=== PATIENT | male | born 1955 | race Caucasian/White ===

== ENCOUNTER → 2018-10-24 14:05 | Outpatient (CLI) | payer MEDICARE, OTHER, SELFPAY ==
[2016-05-29 00:19] VITALS: BMI 22.5
--- NOTE | 2018-10-24 14:00 | CYSPIN_PTH ---
PATIENT: EMMETT SANTIAGO LOC: [facility] U#:[id number] AGE/SX: 70/M ROOM: RE10/24/[address]: Dr. Mason Rmaon MD : 1955 BED: DIS: SPEC #: [id number] RECD: 10/25/18 08:19 STATUS: SHELLI YANETH #: [id number] CM: 10/24/18 14:[address]: Mason Ramon DEPT: CYTOLOGY RECD BY: Anirudh Barr ENTERED: 10/25/18 08:19 SP TYPE: CYSPIN FL OTHR DR: Dr. Urban Robins MD Tissues: Urine Procedures: Pap Stain (control) Special Stain Group II Cytospin Fluid HEADER OPERATION: Not noted PRE-OP DIAGNOSIS: Hematuria TISSUE SUBMITTED: Urine for cytology DIAGNOSIS CYTOLOGY Urine for cytology (cytospin): Negative for malignant cells. AM:wagner 10/28/18 CYTOLOGY STUDY Slides are reviewed. CYTOLOGY GROSS Received is 60 ml of clear yellow fluid labeled with the patient's name and and designated per the requisition as urine. Submitted for cytology preparation. 10/25/18 TC:5 CPT: 93126
[2018-10-24 18:13] LABS: Cytology, Body Fluid / CSF SEE PATHOLOGY REPORT
== END ==
PROVIDERS: Family Provider Family Medicine; PCP Family Medicine; Referring Provider Urology; Visit Provider Urology
DX: R97.20 Elevated prostate specific antigen [PSA] (principal); R31.9 Hematuria, unspecified
CPT/HCPCS: 36415; 84153; 88108; 88313

== ENCOUNTER → 2018-11-01 07:49 | Outpatient (CLI) | payer MEDICARE, OTHER, SELFPAY ==
[2016-05-29 00:19] VITALS: BMI 22.5
--- NOTE | 2018-11-01 08:02 | CT_ITS ---
STUDY: CT ABDOMEN AND PELVIS WITH AND WITHOUT CONTRAST REASON FOR EXAM: Male, 63 years old. Hematuria, prostate cancer. RADIATION DOSAGE (If Supplied By Facility): CTDIvol = ( 13.70 ) mGy, DLP = ( 883.64 ) mGycm TECHNIQUE: Transaxial images were obtained from the dome of the diaphragm to the symphysis pubis without oral contrast. 100 ml of Isovue 300 contrast was administered. Sagittal and coronal images were reconstructed. Individualized dose optimization techniques were used for this CT. COMPARISON: None. FINDINGS: The visualized lung bases are unremarkable. The visualized portions of the heart are within normal limits. Normal liver. Normal gallbladder and extrahepatic biliary system. Normal spleen. Normal pancreas. Normal bilateral adrenal glands. Normal right kidney. Coarse calcification within the mid medial cortex is present consistent with nonobstructing nephrolith measuring 8 mm. Normal visualized stomach. Normal small intestine. Normal colon. The appendix is visualized and appears normal. There is a fusiform and lobulated infrarenal aortic aneurysm the upper portion measuring 4.2 x 4.5 cm with arterial lumen measuring 2.8 cm. The lower aneurysmal portion measures 4.7 x 4.9 cm with the arterial lumen patency measuring 2.3 cm. Normal inferior vena cava. Normal retroperitoneum. Normal urinary bladder. There is enlargement of the prostate gland. Normal abdominal wall. There are diffuse degenerative changes of the visualized lumbar spine. CT/CT Abd/Pelvis W/WO Contrast IMPRESSION: 1. Nonobstructing 8 mm nephrolith of the left kidney with no evidence of hydronephrosis or ureteral dilatation. No evidence of acute renal process. 2. Infrarenal bilobed aortic aneurysm and fusiform appearance as described above. No evidence of significant luminal arterial patency stenosis. Electronically Signed: Sree Black DO at 9:18 EST , Service support ,
[2018-11-01 08:26] LABS: CREATININE FINGERSTICK 0.9 mg/dL (0.70-1.30)
--- OUTSIDE RECORDS SUMMARY | 2018-12-17 19:23 | XMS RPT_ITS ---
:1955 Author Organization [facility] Care Team Providers Name Role Phone Mason Ramon Attending Unavailable Mason Ramon Referring Unavailable Robins, Urban Primary Care Unavailable YennyMason Attending Unavailable Yenny, Mason Claudio Referring Unavailable Robnis, Urban Primary Care Unavailable YennyMason epstein Attending Unavailable Yenny, Mason Claudio Referring Unavailable Robins, Urban Primary Care Unavailable TIBURCIO WARNER Attending Unavailable URBAN MORILLO Referring Unavailable LUIS FERNANDO CHAUDHARY Attending Unavailable URBAN MORILLO Referring Unavailable URBAN MORILLO Primary Care Unavailable Saul PARNELL Referring Unavailable URBAN MORILLO Primary Care Unavailable Saul PARNELL Attending Unavailable URBAN MORILLO Referring Unavailable ILIA, URBAN Primary Care Unavailable PROBLEMS PROBLEMS DATE TYPE CONDITION / CODE ATTENDING STATUS SOURCE 10/24/2018 Unknown R97.20 - Mason Ramon Active Amy Elevated [facility] specific antigen Repository [PSA] / R97.20(ICD-10) PROCEDURES PROCEDURES No Procedure Records FoundRESULTS RESULTS OPERATIVE REPORT Observed: 12/04/2018 Status: F Source: [place] 3:48 PM [facility] REPOSITORY [facility] Medical Records Department [address] [place] [address] Operative Report 12/04/18 1546 MR#: [id number] Acct: [id number] Name: EMMETT SANTIAGO Rep #: [id number] : 1955 63 From: Mason Ramon MD PCP: Urban Robins MD Status: REG SDC Y Location: [place] [address] Report of Operation Date of Procedure: 12/04/18 Pre-Operative Diagnosis: Left kidney stone and hematuria Post-Operative Diagnosis: Same Surgery/Procedure Performed:: Cystoscopy and left extracorporeal shockwave lithotripsy Description of Surgical Findings:: 63-year-old male taken back to the operating room plan today is to do a cystoscopy to rule out any pathology within the bladder he has been having gross hematuria I think this is coming from a stone in the left kidney were also to treat the stone with shockwave lithotripsy looked like a very hard stone about 8 mm in size in the left kidney. Procedure note patient was taken back to the operating room at the smooth induction of anesthesia he was placed supine on the table and then a dorsolithotomy position the penis was prepped and draped in usual sterile fashion went in with a flexible scope the entire length the urethra is normal prostate was normal slightly obstructive no median lobe the high right no high riding bladder neck inside the bladder nice and clear no tumors or stones seen within the bladder then drained the bladder we then repositioned the patient for shockwave lithotripsy in the left kidney started shockwave lithotripsy by with the gait the procedure since he was having ectopy and then after a total of 3000 shockwaves were delivered to the stone at a rate of 60 per about 60 %/min power ranging from 5-7 kV the stone definitely fractured a lot broken below penis pieces were still visible on x-ray and we decided not to leave a stent we can see him back in a few weeks with an x-ray. Type of Anesthesia:: General - Admit VTE Documentation VTE Present on Admission: No VTE Mechan Device Prophylaxis: SCD's 12/04/18 1548 <Electronically signed by Mason Ramon MD> Date Mason Ramon MD CC: Mason Ramon MD; Urban Robins MD Signed CREATININE FINGERSTICK Collected: 11/01/2018 Status: F Source: [place] 8:19 AM [facility] TYPE CODE TESTS RESULT OUT OF RANGE REFERENCE UNITS LAB L9100.0210 0.70-1.30 mg/dL Normal CREATININE WB 0.9 Performed By: #### L9100.0200 #### [facility] Point of Care [address] [place] [address] CT ABD/PELVIS W/WO Observed: 11/01/2018 Status: F Source: [place] CONTRAST 8:02 AM [facility] Imaging Services [address] [place] [address] CT Abd/Pelvis W/WO Contrast MR#: [id number] Acct: [id number] Name: EMMETT SANTIAGO Rep #: [id number] : 1955 M 63 From: Sree Black DO PCP: Urban Robins MD Status: REG CLI Study: CT Abd/Pelvis W/WO Contrast Date of Exam: 11/01/18 Exam# [id number] Ordering Dr: Mason Ramon MD STUDY: CT ABDOMEN AND PELVIS WITH AND WITHOUT CONTRAST REASON FOR EXAM: Male, 63 years old. Hematuria, prostate cancer. RADIATION DOSAGE (If Supplied By Facility): CTDIvol = ( 13.70 ) mGy, DLP = ( 883.64 ) mGycm TECHNIQUE: Transaxial images were obtained from the dome of the diaphragm to the symphysis pubis without oral contrast. 100 ml of Isovue 300 contrast was administered. Sagittal and coronal images were reconstructed. Individualized dose optimization techniques were used for this CT. COMPARISON: None. FINDINGS: The visualized lung bases are unremarkable. The visualized portions of the heart are within normal limits. Normal liver. Normal gallbladder and extrahepatic biliary system. Normal spleen. Normal pancreas. Normal bilateral adrenal glands. Normal right kidney. Coarse calcification within the mid medial cortex is present consistent with nonobstructing nephrolith measuring 8 mm. Normal visualized stomach. Normal small intestine. Normal colon. The appendix is visualized and appears normal. There is a fusiform and lobulated infrarenal aortic aneurysm the upper portion measuring 4.2 x 4.5 cm with arterial lumen measuring 2.8 cm. The lower aneurysmal portion measures 4.7 x 4.9 cm with the arterial lumen patency measuring 2.3 cm. Normal inferior vena cava. Normal retroperitoneum. Normal urinary bladder. There is enlargement of the prostate gland. Normal abdominal wall. There are diffuse degenerative changes of the visualized lumbar spine. CT/CT Abd/Pelvis W/WO Contrast IMPRESSION: 1. Nonobstructing 8 mm nephrolith of the left kidney with no evidence of hydronephrosis or ureteral dilatation. No evidence of acute renal process. 2. Infrarenal bilobed aortic aneurysm and fusiform appearance as described above. No evidence of significant luminal arterial patency stenosis. Electronically Signed: Sree DO Wayne at 9:18 EST , Service support , CC: Mason Ramon MD; Urban Robins MD Acid Etch Operator: Signed PSA,TOTAL- DIAGNOSTIC Collected: 10/24/2018 Status: F Source: [place] 2:13 PM [facility] [place] TYPE CODE TESTS RESULT OUT OF RANGE REFERENCE UNITS LAB L501.9940 0.0-4.0 ng/mL PSA, Normal DIAGNOSTIC 0.30 Result Comment: This test was performed using the TPSA assay method for the PerBlue chemistry system. Values obtained with different assay methods cannot be used interchangably. When changing PSA assays in the course of monitoring a patient, additional sequential testing should be carried out to confirm baseline values. Performed By: #### L501.9940 #### [facility] [address] [place], [address] CYTOSPIN ON FLUID Observed: 10/24/2018 Status: F Source: [place] 2:00 PM [facility] [place] Patient: EMMETT SANTIAGO : 1955 (63/M) Acct Num: [id number] Phys: Yenny GUTIERREZ,Mason Claudio Unit Num: [id number] Loc: LAB Specimen: [id number] Received: 10/25/18818 Spec Type: CYSPIN FL TISSUES 1 TISSUES: Urine CYTOLOGY GROSS Received is 60 ml of clear yellow fluid labeled with the patient's name and and designated per the requisition as urine. Submitted for cytology preparation. / 10/25/18 TC:5 CPT: 47621 CYTOLOGY STUDY Slides are reviewed. DIAGNOSIS CYTOLOGY Urine for cytology (cytospin): Negative for malignant cells. AM:wagner 10/28/18 HEADER OPERATION: Not noted PRE-OP DIAGNOSIS: Hematuria TISSUE SUBMITTED: Urine for cytology Signed Reji Mya 10/28/18 <signature on file> Performed By: #### PCYSPIN #### [facility] [address] [place], [address] CYTOLOGY, BODY FLUID / Collected: 10/24/2018 Status: F Source: [facility] 2:00 PM [facility] [place] Order Comment: Specimen Source: URINE TYPE CODE TESTS RESULT OUT OF RANGE REFERENCE UNITS LAB L350.1000 SEE Normal PATHOLOGY CYTOLOGY,BF REPORT /CSF Result Comment: Specimen submitted to Anatomical Pathology Department for testing. Performed By: #### L350.1000 #### [facility] [address] [place], [address] ALLERGIES ALLERGIES DATE TYPE / CODE NAME / CODE REACTION SEVERITY SOURCE 11/27/2018 Drug No Known Unknown [facility] Allergy/416 Allergies/X69708 Hospital 216506(SNOM 0388(RXNORM) Repository ED CT) NG/[id number] NO KNOWN [place] [address](SNOMED ALLERGIES [facility]) Repository ENCOUNTERS ENCOUNTERS ADMIT/DISCHARGE ACCOUNT NUMBER ADMITTING ENCOUNTER LOCATION SOURCE CLASS 12/04/2018/12/04/19 [id number] Ambulatory [address] ding:SDCRoom Repository : AC14 11/01/2018 [id number] [facility] ding:CT Repository 11/01/2018 [id number] Ambulatory [facility] MEDICAL Repository CENTERBuildi ng:AKUF 10/24/2018 [id number] Ambulatory Pierron Pierron [facility] ding:LAB Repository 04/30/2018 [id number] Ambulatory [facility] MEDICAL Repository CENTERBuildi ng:AGVASACC 04/16/2018 [id number] Ambulatory [facility] MEDICAL Repository CENTERBuild ng:AKUF 04/11/2018 [id number] Ambulatory [facility] PAYERS PAYERS ENCOUNTER GUARANTOR PAYER SUBSCRIBER SOURCE 12/04/2018 EMMETT Corbin Primary EMMETT Shaquille Reyes [id number] Insurance:ANTHEM RUSSELLDOB: Community [employer] [id number] Number: Repository [id number]: 330 [id number] [phone] (HP) Date:1071-12-81WU [address] [place] [address] 82385QE: 12/04/2018 Secondary NOT GIVENUNK [place] Insurance:SELF PAY [facility] Number: Effective Repository Date:2018-11-07 11/01/2018 EMMETT Corbin Primary EMMETT Shaquille Reyes [id number] Insurance:ANTHEM PAMELAB: Community [employer]IOR [id number] Number: Repository 74[address]Ibj: 330 [id number] [phone] (HP) Date:7237-67-96ND [address] [place] [address] 82479ZA: 11/01/2018 Secondary EMMETT Reyes Insurance:DYLAN RUSSELLDOB: [facility] [id number] Hospital Number: Repository [id number] Date:9672-50-37SO [address] [place] [address] 85773UN: 11/01/2018 Tertiary NOT GIVENUNK Pi[place] Insurance:SELF PAY [facility] Number: Effective Repository Date:2018-10-24 11/01/2018 EMMETT Corbin [facility]:SYCHELO MCKAY: Health System HIXPolicy Number: [id number] Repository HINKLE [id number] [place], [place] Date: [address]Ycr: () 10/24/2018 EMMETT Corbin Primary EMMETT Reyes [id number] Insurance:ANTHEM RUSSELLDOB: Community [employer]IOR [id number] [place] ADVANTAPolicy Number: Repository [id number]: (009) [id number] [phone] (HP) Date:2110-07-12FU [address] [place] [address]PT: 10/24/2018 Secondary EMMETT Reyes Insurance:[facility] RUSSELLB: [facility] [id number] [facility] Number: Repository [id number] Date:9897-12-81TE [address] [place] [address] 62570TL: 10/24/2018 Tertiary NOT GIVENJASMINE Reyes Insurance:SELF PAY [facility] Number: Effective Repository Date:2018-10-24 04/30/2018 EMMETT Corbin Primary EMMETT [place] SEMINOLEDOB: [facility]: [facility] HIXPolicy Number: [id number] Repository HINKLE [id number] [place], [place] Date: [address]Zxo: () 04/16/2018 EMMETT Corbin Primary EMMETT Corbin [facility] SEMINOLEDOB: Insurance:CARESOURCE RUSSELLB: Health System HIXPolicy Number: [id number] Repository HINKLE [id number] [place], [place] Date: [address]Szu: () 04/11/2018 EMMETT Corbin Primary EMMETT [facility] SEMINOLEDOB: Insurance[facility] HIXPolicy Number: [id number] Medical Center [id number] FIOR DANIELLE Date: [address]Agk: ()
== END ==
PROVIDERS: Family Provider Family Medicine; PCP Family Medicine; Referring Provider Urology; Visit Provider Urology
DX: C61 Malignant neoplasm of prostate (principal); R31.9 Hematuria, unspecified
CPT/HCPCS: 74178; Q9967

== ENCOUNTER 2018-12-04 11:55 | Day surgery (SDC) | payer MEDICARE, SELFPAY ==
[2018-12-04 12:13] VITALS: BP 146/97; PULSE 64; RESP 18; TEMP 36.6; O2SAT 98; BMI 23.3
[2018-12-04] MEDS: Cefazolin 2 GM in 0.9% Normal Saline 100 ML IV (14:26)
--- NOTE | 2018-12-04 15:46 | PCM.OPRPT ---
Report of Operation Date of Procedure: 12/04/18 Pre-Operative Diagnosis: Left kidney stone and hematuria Post-Operative Diagnosis: Same Surgery/Procedure Performed:: Cystoscopy and left extracorporeal shockwave lithotripsy Description of Surgical Findings:: 63-year-old male taken back to the operating room plan today is to do a cystoscopy to rule out any pathology within the bladder he has been having gross hematuria I think this is coming from a stone in the left kidney were also to treat the stone with shockwave lithotripsy looked like a very hard stone about 8 mm in size in the left kidney. Procedure note patient was taken back to the operating room at the smooth induction of anesthesia he was placed supine on the table and then a dorsolithotomy position the penis was prepped and draped in usual sterile fashion went in with a flexible scope the entire length the urethra is normal prostate was normal slightly obstructive no median lobe the high right no high riding bladder neck inside the bladder nice and clear no tumors or stones seen within the bladder then drained the bladder we then repositioned the patient for shockwave lithotripsy in the left kidney started shockwave lithotripsy by with the gait the procedure since he was having ectopy and then after a total of 3000 shockwaves were delivered to the stone at a rate of 60 per about 60 %/min power ranging from 5-7 kV the stone definitely fractured a lot broken below penis pieces were still visible on x-ray and we decided not to leave a stent we can see him back in a few weeks with an x-ray. Type of Anesthesia:: General - Admit VTE Documentation VTE Present on Admission: No VTE Mechan Device Prophylaxis: SCD's
[2018-12-04 15:53] VITALS: BP 146/97; BP 176/97; PULSE 57; RESP 18; TEMP 35.8; O2SAT 97
[2018-12-04 16:00] VITALS: BP 146/97; BP 149/96; PULSE 54; RESP 18; TEMP 36.2; O2SAT 96
[2018-12-04 16:10] VITALS: BP 146/97; BP 165/97; PULSE 64; RESP 18; TEMP 36.2; O2SAT 95
[2018-12-04 16:48] VITALS: BP 146/97; BP 167/88; PULSE 57; RESP 18; TEMP 36.2; O2SAT 97
--- OUTSIDE RECORDS SUMMARY | 2019-02-08 07:58 | XMS RPT_ITS ---
:1955 Author Organization OHIP Care Team Providers Name Role Phone Mason Ramon Attending Unavailable Mason Ramon Referring Unavailable Robins, Urban Primary Care Unavailable YennyMason Attending Unavailable Yenny, Mason Claudio Referring Unavailable Robins, Urban Primary Care Unavailable YennyMason epstein Attending Unavailable Yenny, Mason Claudio Referring Unavailable Shimon, Urban Primary Care Unavailable TIBURCIO WARNER Attending [...] R97.20 - Mason Ramon Active Amy Elevated [facility] specific antigen Repository [PSA] / R97.20(ICD-10) PROCEDURES PROCEDURES No Procedure Records FoundRESULTS RESULTS OPERATIVE REPORT Observed: 12/04/2018 Status: F Source: [place] 3:48 PM [facility] REPOSITORY [facility] Medical Records Department [address] [place] [address] Operative Report 12/04/18 1546 MR#: [id number] Acct: [id number] Name: EMMETT SANTIAGO Rep #: [id number] : 1955 63 From: Mason Ramon MD PCP: Urban Robins MD Status: REG SDC Y Location: [place] [address] Report of Operation Date of Procedure: 12/04/18 [...] 11/01/2018 Status: F Source: [place] 8:19 AM [facility] [place] TYPE CODE TESTS RESULT OUT OF RANGE REFERENCE UNITS LAB L9100.0210 0.70-1.30 mg/dL Normal CREATININE WB 0.9 Performed By: #### L9100.0200 #### [facility] Point of Care [address] [place] [address] CT ABD/PELVIS W/WO Observed: 11/01/2018 Status: F Source: [place] CONTRAST 8:02 AM [facility] [place] [facility] Imaging Services [address] [place] [address] CT Abd/Pelvis W/WO Contrast MR#: [id number] Acct: [id number] Name: EMMETT SANTIAGO Rep #: [id number] : 1955 M 63 From: Sree Black DO PCP: Urban Robins MD Status: REG CLI Study: CT Abd/Pelvis W/WO Contrast Date of Exam: 11/01/18 Exam# [id number] Ordering Dr: Mason Ramon MD STUDY: CT [...] CC: Mason Ramon MD; Urban Robins MD House Officer: Signed PSA,TOTAL- DIAGNOSTIC Collected: 10/24/2018 Status: F Source: [place] 2:13 PM [facility] TYPE CODE TESTS RESULT OUT OF RANGE REFERENCE UNITS LAB L501.9940 0.0-4.0 ng/mL PSA, Normal DIAGNOSTIC 0.30 Result Comment: This test was performed using the TPSA assay method for the [employer] chemistry system. Values obtained with different assay methods cannot be used interchangably. When changing PSA assays in the course of monitoring a patient, additional sequential testing should be carried out to confirm baseline values. Performed By: #### L501.9940 #### [facility] [address] [place], [address] CYTOSPIN ON FLUID Observed: 10/24/2018 Status: F Source: [place] 2:00 PM [facility] [place] Patient: EMMETT SANTIAGO : 1955 (63/M) Acct Num: [id number] Phys: Yenny GUTIERREZ,Mason Claudio Unit Num: [id number] Loc: LAB Specimen: [id number] Received: 10/25/18818 Spec Type: CYSPIN FL TISSUES 1 TISSUES: Urine CYTOLOGY GROSS Received is 60 ml of clear yellow fluid labeled with the patient's name and and designated per the requisition as urine. Submitted for cytology preparation. / 10/25/18 TC:5 CPT: 32674 CYTOLOGY STUDY Slides are reviewed. DIAGNOSIS CYTOLOGY Urine for cytology (cytospin): Negative for malignant cells. AM:wagner 10/28/18 HEADER OPERATION: Not noted PRE-OP DIAGNOSIS: Hematuria TISSUE SUBMITTED: Urine for cytology Signed Reji Mya 10/28/18 <signature on file> Performed By: #### PCYSPIN #### [facility] [address] [place], [address] CYTOLOGY, BODY FLUID / Collected: 10/24/2018 Status: F Source: [facility] 2:00 PM [facility] Order Comment: Specimen Source: URINE TYPE CODE TESTS RESULT OUT OF RANGE REFERENCE UNITS LAB L350.1000 SEE Normal PATHOLOGY CYTOLOGY,BF REPORT /CSF Result Comment: Specimen submitted to Anatomical Pathology Department for testing. Performed By: #### L350.1000 #### [facility] [address] [place], [address] ALLERGIES ALLERGIES DATE TYPE / CODE NAME / CODE REACTION SEVERITY SOURCE 11/27/2018 Drug No Known Unknown [facility] Allergy/416 Allergies/R70089 Hospital 407546(SNOM 0388(RXNORM) Repository ED CT) NG/[id number] NO KNOWN [place] [address](SNOMED ALLERGIES [facility]) Repository ENCOUNTERS ENCOUNTERS ADMIT/DISCHARGE ACCOUNT NUMBER ADMITTING ENCOUNTER LOCATION SOURCE CLASS 12/04/2018/12/04/19 [id number] Ambulatory [address] ding:SDCRoom Repository : AC14 11/01/2018 [id number] [facility] ding:CT Repository 11/01/2018 [id number] Ambulatory [facility] MEDICAL Repository CENTERBuildi ng:AKUF 10/24/2018 [id number] Ambulatory [place] [facility] ding:LAB Repository 04/30/2018 [id number] Ambulatory [facility] MEDICAL Repository CENTERBuildi ng:AGVASACC 04/16/2018 [id number] Ambulatory [facility] MEDICAL Repository CENTERBuild ng:AKUF 04/11/2018 [id number] Ambulatory [facility] PAYERS PAYERS ENCOUNTER GUARANTOR PAYER SUBSCRIBER SOURCE 12/04/2018 EMMETT Corbin Primary EMMETT Shaquille Reyes [id number] Insurance:ANTHEM RUSSELLDOB: Community [employer] SENIOR [id number] Number: Repository [id number]: 330 [id number] [phone] (HP) Date:4042-06-66WV [address] [place] [address] 09499UN: 12/04/2018 Secondary NOT GIVENUNK [place] Insurance:SELF PAY [facility] Number: Effective Repository Date:2018-11-07 11/01/2018 EMMETT Corbin Primary EMMETT Shaquille Reyes [id number] Insurance:ANTHEM PAMELAB: Community [employer]IC[employer] SENIOR [id number] Number: Repository [address]Ytl: 330 [id number] [phone] (HP) Date:1075-83-54BB [address] [place] [address] 87040LL: 11/01/2018 Secondary EMMETT Reyes Insurance:DYLAN RUSSELLDOB: [facility] [id number] Hospital Number: Repository [id number] Date:6143-06-03XG [address] [place] [address] 648[address]XG: 11/01/2018 Tertiary NOT GIVENUNK [place] Insurance:SELF PAY [facility] Number: Effective Repository Date:2018-10-24 11/01/2018 EMMETT Corbin Primary [facility]T [facility]:SYCHELO MCKAY: Health System HIXPolicy Number: [id number] Repository [facility] [id number] [place], [place] Date: [address]Bri: () 10/24/2018 EMMETT Corbin Primary EMMETT Reyes [id number] Insurance:ANTHEM RUSSELLDOB: Community [employer] SENIOR [id number] [place] ADVANTAPolicy Number: Repository [id number]: (031) [id number] [phone] (HP) Date:7828-12-24BE [address] [place] [address] 66066KT: 10/24/2018 Secondary EMMETT Reyes Insurance:[facility] RUSSELLB: [facility] [id number] [facility] Number: Repository [id number] Date:1267-36-36BV [address] [place] [address] 37869RO: 10/24/2018 Tertiary NOT GIVENJASMINE Reyes Insurance:SELF PAY [facility] Number: Effective Repository Date:2018-10-24 04/30/2018 EMMETT Corbin Primary EMMETT Buchanan WEST UNIONDOB: [facility] HIXPolicy Number: [id number] Repository [facility] [id number] [place], [place] Date: [address]Awg: () 04/16/2018 EMMETT Corbin Primary EMMETT Corbin [facility] WEST UNIONDOB: Insurance:CARESOURCE RUSSELLB: Health System HIXPolicy Number: [id number] Repository [facility] [id number] [place], [place] Date: [address]Vxn: () 04/11/2018 EMMETT Corbin Primary EMMETT [facility] WEST UNIONDOB: Insurance:CARESOURCE [facility]: Health System HIXPolicy Number: [id number]. Mary Medical [facility] [id number] FIOR DANIELLE Date: [address]Ksh: ()
== END 2018-12-04 16:52 | disposition home or self-care (01) ==
LOC: SDC 11:55 → AC 11:57
PROVIDERS: Family Provider Family Medicine; PCP Family Medicine; Referring Provider Urology; Visit Provider Urology
PROC: (CPT 50590; principal; 2018-12-04 13:25)
DX: N20.0 Calculus of kidney (principal); R31.0 Gross hematuria; N40.0 Benign prostatic hyperplasia without lower urinary tract symptoms; E78.5 Hyperlipidemia, unspecified; Z79.52 Long term (current) use of systemic steroids; Z79.899 Other long term (current) drug therapy; Z87.442 Personal history of urinary calculi; Z87.19 Personal history of other diseases of the digestive system; Z85.46 Personal history of malignant neoplasm of prostate; Z87.891 Personal history of nicotine dependence
CPT/HCPCS: 00873; 50590; J7120; J2405

== ENCOUNTER → 2018-12-26 09:19 | Outpatient (CLI) | payer MEDICARE, SELFPAY ==
[2018-12-04 12:13] VITALS: BMI 23.3
--- NOTE | 2018-12-26 09:21 | RAD_ITS ---
STUDY: X-RAY - ABDOMEN/PELVIS REASON FOR EXAM: Male, 63 years old. Left-sided kidney stones. TECHNIQUE: Single AP view of the abdomen / pelvis. COMPARISON: Comparison is made with prior study dated January 04, 2016. FINDINGS: There is an abundance of fecal material throughout the colon. Several small calcifications are seen in the lower pole calyx of the left kidney suggestive of a tiny intrarenal calculi. The largest measures 2.9 mm. A faint calcifications also seen overlying the mid pole calyx of the left kidney. Normal soft tissue structures. Normal visualized osseous structures. RAD/Abdomen Single View IMPRESSION: Left intrarenal calculi. Electronically Signed: Ray Lemon MD at 13:05 EST , Service support ,
== END ==
PROVIDERS: Family Provider Family Medicine; PCP Family Medicine; Referring Provider Urology; Visit Provider Urology
DX: N20.0 Calculus of kidney (principal)
CPT/HCPCS: 74018

== ENCOUNTER → 2019-10-30 09:13 | Outpatient (CLI) | payer MEDICARE, SELFPAY ==
[2019-10-30 10:41] LABS: Anion Gap 3 (5-15); BUN 15 mg/dL (7-18); Chloride 109 mmol/L (98-107); Cholesterol 155 mg/dL (200); Creatinine, Serum 1.15 mg/dL (0.70-1.30); EST Glomerular Filtration Rate 68 mL/min (>60); Est Glom Filt Rate - Afr Amer 82 mL/min (>60); Glucose 99 mg/dL (74-106); High Density Lipoprotein 28 mg/dL; PSA,Total - Annual Screen 0.26 ng/mL (0.00-4.00); Potassium 4.1 mmol/L (3.5-5.1); Sodium Level 140 mmol/L (136-145); Triglycerides 172 mg/dL; Very Low Density Lipoprotein 34 mg/dL (5-40)
== END ==
PROVIDERS: Family Provider Family Medicine; PCP Family Medicine; Referring Provider Family Medicine; Visit Provider Family Medicine
DX: Z00.00 Encounter for general adult medical examination without abnormal findings (principal)
CPT/HCPCS: 36415; 80048; 80061; 84153; G0103

== ENCOUNTER → 2020-11-02 08:23 | Outpatient (CLI) | payer MEDICARE, SELFPAY ==
[2020-11-02 10:33] LABS: Vitamin D,25 Hydroxy 20.1 ng/mL
[2020-11-02 10:39] LABS: Anion Gap 4 (5-15); BUN 17 mg/dL (7-18); BUN/Creat Ratio 17.1 RATIO (10-20); Calcium,Total 8.9 mg/dL (8.5-10.1); Chloride 108 mmol/L (98-107); Cholesterol 161 mg/dL (200); Creatinine, Serum 0.99 mg/dL (0.70-1.30); EST Glomerular Filtration Rate 80 mL/min (>60); Est Glom Filt Rate - Afr Amer 97 mL/min (>60); Glucose 113 mg/dL (74-106); High Density Lipoprotein 32 mg/dL; PSA,Total - Annual Screen 0.27 ng/mL (0.00-4.00); Potassium 3.9 mmol/L (3.5-5.1); Sodium Level 141 mmol/L (136-145); Triglycerides 173 mg/dL; Very Low Density Lipoprotein 35 mg/dL (5-40)
== END ==
PROVIDERS: PCP Family Medicine; Referring Provider Family Medicine; Visit Provider Family Medicine
DX: Z00.00 Encounter for general adult medical examination without abnormal findings (principal); E78.5 Hyperlipidemia, unspecified; E55.9 Vitamin D deficiency, unspecified; Z12.5 Encounter for screening for malignant neoplasm of prostate
CPT/HCPCS: 36415; 80048; 80061; 82306; 84153; G0103

== ENCOUNTER 2021-05-26 14:37 | Emergency (ER) | payer MEDICARE, SELFPAY ==
[2021-05-26 14:38] VITALS: BP 210/109; PULSE 66; RESP 15; TEMP 36.3; O2SAT 97; BMI 23.3
--- NOTE | 2021-05-26 15:02 | CT_ITS ---
STUDY: CTA OF THE ABDOMINAL AORTA AND BILATERAL LOWER EXTREMITIES REASON FOR EXAM: Male, 65 years old. AAA, HTN RADIATION DOSAGE (If Supplied By Facility): CTDIvol = ( 29.55 ) mGy, DLP = ( 389.63 ) mGycm TECHNIQUE: Axial CT angiography multi-detector data acquisition was obtained from the diaphragm to the pelvis following intravenous administration of IV 100mL Isovue-300. Axial images and MIP images were reconstructed from the axial data set. Post-processing of the angiographic images was performed, with multiplanar reformation and 3D reconstruction. Individualized dose optimization techniques were used for this CT. TECHNICAL QUALITY: Prior abdomen and pelvic CT exam of 11/01/2018 COMPARISON: None. Descriptors of Narrowing: None (0%) Mild (< 50%) Moderate (50-70%) Severe (70-90%) Subtotal/Total Occlusion (90-100%) Non-Evaluable (technically non-diagnostic FINDINGS: Abdominal aorta: Mild to moderate calcific plaque of the aorta. Fusiform infrarenal aortic aneurysm measuring at the widest 5.6 x 5.3 cm/the inferior portion of the aneurysm. The proximal aneurysm measures 5.0 x 5.1 cm. Prior comparable measurement of the lower aneurysm at the same level 4.8 x 4.5 cm. The current length of the aneurysm is 13 cm starting immediately below the renal arteries and extending to the bifurcation. There is substantial mural thrombus. An adequate flow lumen is maintained. Celiac and superior mesenteric arteries: No demonstrated narrowing. 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 Right renal artery(arteries): No demonstrated narrowing in the main renal artery. Small secondary lower pole right renal artery without narrowing.. Left renal artery(arteries): No demonstrated narrowing. Right common iliac artery: Moderate calcific plaque with less than 50% narrowing. Right external iliac artery: Mild plaque with no narrowing. Right internal iliac artery: No substantial narrowing. Left common iliac artery: Mild proximal narrowing. Left external iliac artery: No substantial narrowing. Left internal iliac artery: Mild narrowing. Normal liver,, spleen and pancreas with a normal contracted gallbladder. Few stable periportal lymph nodes. Normal size kidneys bilaterally 2 mm and 4 mm nonobstructing stones of the left kidney without hydronephrosis. Normal stomach and small bowel. Diverticulosis of the distal colon without evidence of acute diverticulitis. A normal appendix is identified. CT/CTA Abdomen W/WO Contrast IMPRESSION: Fusiform infrarenal aortic aneurysm which extends for 13 cm length from below the right renal artery to the bifurcation that has increased in size since 11/01/2018. The largest more inferior portion of the aneurysm measures 5.6 x 5.3 cm compared to the prior comparable measurement of 4.8 x 4.5 cm. Substantial mural thrombus with an adequate aortic flow lumen. No evidence of rupture/extravasation Mild to moderate calcific plaque of the proximal iliac arteries with less than 50% narrowing. No substantial narrowing of the included extraluminal or internal iliac arteries. No significant narrowing of the celiac artery, superior mesenteric artery or bilateral renal arteries. 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 No other acute abdominal or pelvic findings. 4 mm and 2 mm nonobstructing stones in the lower pole of the left kidney without hydronephrosis or ureteral stones.. Electronically Signed: Vickie Kumar MD at 16:26 EDT , Service support ,
--- NOTE | 2021-05-26 15:03 | EKG12_ITS ---
Test Reason : BP Blood Pressure : / mmHG Vent. Rate : 055 BPM Atrial Rate : 055 BPM P-R Int : 154 ms QRS Dur : 108 ms QT Int : 410 ms P-R-T Axes : 052 -06 045 degrees QTc Int : 392 ms Sinus bradycardia Otherwise normal ECG Confirmed by TIMUR GUTIERREZ, EMA ([id number]), field map editor LANDEN JESUS ([id number]) on 05/30/2021 1:03:11 PM Referred By: GENIA Confirmed By:EMA DING MD
--- NOTE | 2021-05-26 15:04 | EDS_ITS ---
HPI History of Present Illness Chief Complaint: Hypertension Detail of Chief Complaint: A low pressure since yesterday Informant: patient Narrative Narrative: Patient presents to the emergency department with complaint of elevated blood pressures that were initially noted yesterday when he was at presurgical testing for a AAA repair. Patient had systolics of 190 and 180 while there. Today he has been checking his blood pressure and has been running from 1 90-2 01 systolic with diastolics just over 100. Patient states that he last had his blood pressure checked about a month ago and he thought that it was in the 140 systolic. Patient denies any abdominal pain. He denies chest pain. Patient denies headache. Patient is not on blood pressure medicine. Prior similar symptoms: No PFSH [facility] Medical History (Updated 05/26/21 @ 16:[address] Yesi Arzola DO) AAA (abdominal aortic aneurysm) Prostate CA Home Medications simvastatin 10 mg PO QHS 03/25/14 [History Last Taken Unknown] doxazosin 2 mg PO DAILY 11/27/18 [History Last Taken Unknown] lisinopril [Prinivil] 20 mg PO DAILY #30 tab 05/26/21 [Rx Last Taken Unknown] Allergy/AdvReac Type Severity Reaction Status Date / Time No Known Allergies Allergy Verified 05/26/21 14:41 Social History Smoking Status: Current every day smoker tobacco type: cigarettes ROS ROS ED Constitutional Constitutional ED: Reports systems reviewed and no addt'l complaints, except as documented; Denies body ache(s), change in weight or chills Eyes Eyes: Denies acute decrease in peripheral vision, change in vision, double vision or loss of vision ENT ENT ED: Reports none; Denies ear pain, lip swelling, loss taste/smell, neck pain, otalgia or sore throat Cardiovascular Cardiovascular: Reports none; Denies abdominal pain, chest pain with activity, leg edema, lightheadedness, palpitations, rapid heart rate or syncope Respiratory/Chest Respiratory/Chest: Reports none; Denies change in mental status, dry cough, dyspnea, hemoptysis, shortness of breath at rest or shortness of breath with exertion Gastrointestinal Gastrointestinal: Reports none; Denies abdominal pain, change in stool character, diarrhea, hematemesis, hematochezia, melena, rectal bleeding or vomiting Genitourinary Genitourinary ED: Reports none; Denies abdominal discomfort, anuria, dysuria, genital pain or polyuria Musculoskeletal Musculoskeletal: Reports none; Denies arthralgias, back pain, difficulty walking, extremity pain, muscle weakness or myalgias Integumentary Reports none; Denies abscess or rash Neurologic Neurologic: Reports none; Denies abnormal gait, confusion, focal weakness, frequent falls, headache(s), loss of vision, numbness, paresthesias, radicular pain, vertigo or weakness Psychiatric Psychiatric: Reports systems reviewed and no addt'l complaints, except as documented and none; Denies behavioral changes, confusion, difficulty concentrating, hallucinations, suicidal ideation, tactile hallucinations or visual hallucinations Endocrine Endocrinology: Denies none, cold intolerance, excessive sweating, fatigue or heat intolerance Hematologic/Lymphatic Hematologic/Lymphatic: Reports none; Denies anemia, easy bleeding or easy bruising Allergic/Immunologic Allergic/Immunologic ED: Denies as per HPI, none, lip swelling, mouth swelling, throat swelling, tongue swelling or hives EXAM Physical Exam Const Vital Signs: 05/26/21 14:38 05/26/21 14:49 05/26/21 15:29 Temperature 97.3 F L Temperature Source Temporal Pulse Rate 66 Respiratory Rate 15 Respiratory Effort Normal Non-Labored Respiratory Pattern Normal Blood Pressure 210/109 H 213/105 H Blood Pressure Mean 142 141 Pulse Ox 97 Oxygen Delivery Method Room Air 05/26/21 16:28 Temperature Temperature Source Pulse Rate Respiratory Rate Respiratory Effort Respiratory Pattern Blood Pressure 182/92 H Blood Pressure Mean 122 Pulse Ox Oxygen Delivery Method Positive well nourished and well developed General Appearance ED: well developed and NAD HEENT Reports TM's clear and moist mucous membranes normocephalic and atraumatic; Negative for trauma or tenderness Tympanic Membrane ED: Yes TM's clear Eyes PERRL and EOMs intact bilaterally General Eye ED: Negative for pale conjunctiva or scleral icterus Neck no lymphadenopathy, supple and no JVD General: Negative for tenderness Chest Wall inspection of chest normal and palpation of chest normal Chest: Negative for tenderness Resp normal respiratory effort and clear to auscultation bilaterally Effort and Inspection: Negative for respiratory distress or pain with movement Auscultation: Negative for rhonchi, wheezes or diminished lung sounds Cardio regular rate, regular rhythm, S1 normal heart sound, S2 normal heart sound and no murmurs Peripheral Pulses: pulses 2+ throughout GI normal to inspection, nondistended, normoactive bowel sounds, soft to palpation, non-tender, non-distended and no masses GI Narrative: Questionable pulsatile mass just superior to the umbilicus. Back/Spine no CVA tenderness and no thoracic nor lumbar tenderness Extremity normal to inspection General Extremety ED: Negative for edema General Extremity: Negative for edema Neuro oriented x3, CN's II-XII intact bilaterally, no sensory deficits noted and gait normal Sensorium / Orientation: awake, alert, oriented to person, oriented to place and oriented to time Motor Exam: strength 5/5 throughout and strength abnormal Psych mental status grossly normal Skin no rashes or lesions noted and no wounds MDM MDM MDM Narrative Medical decision making narrative: Patient relatively asymptomatic with the elevated blood pressure. CTA of the abdomen and pelvis shows the aneurysm that is enlarged when compared from 2018 however patient has had more recent studies that showed the aneurysm to be at the current 5.6 cm level. Patient case discussed with Dr. Dejesus who was covering for Dr. Urban Robins and I was asked to start patient on lisinopril 20 mg daily. Patient will follow up with her office tomorrow. Lab Data Attestation: I reviewed the patient's lab results. Labs: Laboratory Results - last 24 hr 05/26/21 05/26/21 14:55 14:55 WBC 9.4 RBC 4.88 Hgb 15.8 Hct 46.8 MCV 95.9 H MCH 32.4 H MCHC 33.8 RDW Std Deviation 43.8 RDW Coeff of Yasemin 12.4 Plt Count 232 MPV 10.9 Immature Gran % (Auto) 0.300 Neut % (Auto) 52.1 Lymph % (Auto) 35.4 [place] % (Auto) 8.0 Eos % (Auto) 3.0 Baso % (Auto) 1.2 H Absolute Neuts (auto) 4.9 Absolute Lymphs (auto) 3.33 Nucleated RBC % 0 Sodium 139 Potassium 3.9 Chloride 108 H Carbon Dioxide 29.0 Anion Gap 2 L BUN 14 Creatinine 1.11 Estim Creat Clear Calc 68.78 Est GFR (MDRD) Af Amer 85 Est GFR (MDRD) Non-Af 70 BUN/Creatinine Ratio 12.6 Glucose 111 H Calcium 9.0 Troponin I High Sens 8.8 Radiography Diagnostic Testing: Radiology Impression Abdomen CTA 05/26/21 15:02 IMPRESSION: Fusiform infrarenal aortic aneurysm which extends for 13 cm length from below the right renal artery to the bifurcation that has increased in size since 11/01/2018. The largest more inferior portion of the aneurysm measures 5.6 x 5.3 cm compared to the prior comparable measurement of 4.8 x 4.5 cm. Substantial mural thrombus with an adequate aortic flow lumen. No evidence of rupture/extravasation Mild to moderate calcific plaque of the proximal iliac arteries with less than 50% narrowing. No substantial narrowing of the included extraluminal or internal iliac arteries. No significant narrowing of the celiac artery, superior mesenteric artery or bilateral renal arteries. 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 No other acute abdominal or pelvic findings. 4 mm and 2 mm nonobstructing stones in the lower pole of the left kidney without hydronephrosis or ureteral stones.. Electronically Signed: Vickie Kumar MD at 16:26 EDT , Service support , EKG Initial EKG: Attestation: I personally reviewed and interpreted this EKG as follows: Comments: Sinus bradycardia with a ventricular rate of 55 bpm Discharge Plan Triage Chief Complaint: Hypertension ED Provider: Yesi Arzola Dx/Rx/DC Orders Clinical Impression: Hypertension Instructions: ED Hypertension New Begin Treatment Prescriptions: New lisinopril [Prinivil] 20 mg tablet 20 mg PO DAILY Qty: 30 RF: 0 No Action simvastatin 10 MG tablet 10 mg PO QHS RF: 0 doxazosin 2 MG tablet 2 mg PO DAILY RF: 0 Primary Care Provider: Urban Robins Referrals: Urban Robins MD [Primary Care Provider] - 1 Day Disposition Disposition: Home, Self Care
[2021-05-26] MEDS: 0.9% Normal Saline 1,000 ML 1000 ML IV (15:08)
[2021-05-26 15:19] LABS: Absolute Lymphocyte Count 3.33 X10^3/uL (0.83-4.51); Absolute Neutrophil Count 4.9 X10^3/uL (2.0-7.7); Basophil# 0.11 X10^3/uL; Basophil% 1.2 % (0-1); Eosinophil# 0.28 X10^3/uL; Hematocrit 46.8 % (40-54); Hemoglobin 15.8 g/dL (13.0-16.5); Lymphocyte # 3.33 X10^3/ul (0.83-4.51); Lymphocyte % 35.4 % (19-41); Mean Corp Hgb Conc 33.8 g/dL (32-36); Mean Corpuscular Hgb 32.4 pg (27.0-32.0); Mean Corpuscular Volume 95.9 fL (80-94); Mean Platelet Vol. 10.9 fl (6.2-12.0); Monocyte# 0.75 X10^3/uL; NRBC Flagged by Analyzer 0 % (0-5); Neutrophil # 4.91 X10^3/uL (2.7-7.7); Neutrophil % 52.1 % (47-70); Platelet Count 232 K/mm3 (150-450); RBC Distribution Width CV 12.4 % (11.6-14.6); RBC Distribution Width SD 43.8 fl (35.1-43.9); Red Blood Count 4.88 M/mm3 (4.6-6.2); White Blood Count 9.4 K/mm3 (4.4-11.0)
[2021-05-26] MEDS: hydrALAZINE 20 MG/ML Vial 10 MG IV (15:27)
[2021-05-26 15:29] VITALS: BP 213/105
[2021-05-26 15:41] LABS: Anion Gap 2 (5-15); BUN 14 mg/dL (7-18); BUN/Creat Ratio 12.6 RATIO (10-20); Chloride 108 mmol/L (98-107); Creatinine, Serum 1.11 mg/dL (0.70-1.30); EST Glomerular Filtration Rate 70 mL/min (>60); Est Glom Filt Rate - Afr Amer 85 mL/min (>60); Estimated Creatinine Clearance 68.78 ml/min; Glucose 111 mg/dL (74-106); Potassium 3.9 mmol/L (3.5-5.1); Sodium Level 139 mmol/L (136-145); Troponin-I HS 8.8 pg/mL (3.0-78.5)
[2021-05-26 16:28] VITALS: BP 182/92
== END 2021-05-26 17:01 | disposition home or self-care (01) ==
PROVIDERS: Emergency Provider Emergency Medicine; PCP Family Medicine
DX: I10 Essential (primary) hypertension (principal); I71.4 Abdominal aortic aneurysm, without rupture; F17.210 Nicotine dependence, cigarettes, uncomplicated; Z79.899 Other long term (current) drug therapy; Z85.46 Personal history of malignant neoplasm of prostate
CPT/HCPCS: 74175; 80048; 84484; 85025; 93005; 96361; 96374; 99284; J7030; Q9967; A4216

== ENCOUNTER → 2021-11-07 08:09 | Outpatient (CLI) | payer MEDICARE, SELFPAY ==
[2021-11-07 10:15] LABS: Anion Gap 7 (5-15); BUN 21 mg/dL (7-18); BUN/Creat Ratio 15.6 RATIO (10-20); Calcium,Total 9.3 mg/dL (8.5-10.1); Chloride 107 mmol/L (98-107); Cholesterol 131 mg/dL (200); Creatinine, Serum 1.35 mg/dL (0.70-1.30); EST Glomerular Filtration Rate 56 mL/min (>60); Est Glom Filt Rate - Afr Amer 68 mL/min (>60); Glucose 108 mg/dL (74-106); High Density Lipoprotein 28 mg/dL; PSA,Total - Annual Screen 0.28 ng/mL (0.00-4.00); Potassium 4.3 mmol/L (3.5-5.1); Sodium Level 142 mmol/L (136-145); Triglycerides 153 mg/dL; Very Low Density Lipoprotein 31 mg/dL (5-40)
== END ==
PROVIDERS: PCP Family Medicine; Visit Provider Family Medicine
DX: Z00.00 Encounter for general adult medical examination without abnormal findings (principal); E78.5 Hyperlipidemia, unspecified; I10 Essential (primary) hypertension; Z12.5 Encounter for screening for malignant neoplasm of prostate
CPT/HCPCS: 36415; 80048; 80061; 84153; G0103

== ENCOUNTER 2022-01-16 07:56 | Outpatient (CLI) | payer MEDICARE, SELFPAY ==
[2022-01-16 10:21] LABS: ALB/GLOB Ratio 0.9 RATIO (0.9-2.4); AST(SGOT) 12 U/L (15-37); Alanine Aminotransfer ALT/SGPT 21 U/L (16-61); Albumin, Serum 3.6 g/dL (3.2-5.0); Alkaline Phosphatase 93 U/L (45-117); Anion Gap 3 (5-15); BUN 22 mg/dL (7-18); BUN/Creat Ratio 17.1 RATIO (10-20); Chloride 107 mmol/L (98-107); Creatinine, Serum 1.29 mg/dL (0.70-1.30); EST Glomerular Filtration Rate 59 mL/min (>60); Est Glom Filt Rate - Afr Amer 71 mL/min (>60); Globulin 4.1 g/dL (2.2-4.2); Glucose 101 mg/dL (74-106); Potassium 4.5 mmol/L (3.5-5.1); Protein, Total 7.7 g/dL (6.4-8.2); Sodium Level 140 mmol/L (136-145)
== END 2022-01-16 23:59 | disposition home or self-care (01) ==
LOC: MFPLAB 07:59
PROVIDERS: PCP Family Medicine; Referring Provider Family Medicine; Visit Provider Family Medicine
DX: I10 Essential (primary) hypertension (principal)
CPT/HCPCS: 36415; 80053

== ENCOUNTER 2022-01-17 08:43 | Outpatient (CLI) | payer MEDICARE, SELFPAY ==
--- NOTE | 2022-01-17 08:47 | US_ITS ---
STUDY: ABDOMINAL ULTRASOUND - RIGHT UPPER QUADRANT REASON FOR VISIT: Male, 66 years old . One year history of prior upper quadrant pain and nausea. TECHNIQUE: Ultrasound evaluation of the right upper quadrant was performed with real-time and static noguera-scale imaging. TECHNICAL QUALITY: Adequate. COMPARISON: Comparison is made with prior study dated 05/28/2016. FINDINGS: Liver: The liver measures 15.3 cm. There is normal echogenicity of the liver. The bile ducts are within normal limits. There is hepatic color flow. The direction of portal flow is hepatopetal. There is no demonstrated mass lesion. Gallbladder: Normal distended gallbladder. The gallbladder wall measures 2.6 mm. There is a negative sonographic Lopez''s sign. There is no pericholecystic fluid. There are multiple echogenic structures within the gallbladder, consistent with multiple gallstones. A 3 mm x 4 mm polyp is seen adherent to the gallbladder wall. Common Bile Duct (C.B.D.): The common bile duct measures 4.4 mm. Pancreas: Normal size of the head, body and tail of the pancreas. There is normal echogenicity of the pancreas. There is no demonstrated pancreatic mass or cyst. Right Kidney: Normal size of the right kidney. The right kidney measures 10.3 cm x 5.7 cm x 4.5 cm. Normal renal cortex. The right cortex measures 2 cm. There is no demonstrated renal mass or cyst. There is no right hydronephrosis. US/Abdomen Limited IMPRESSION: Multiple gallstones. Small gallbladder polyp. Electronically Signed: Ray Lemon MD at 14:58 EST ,
== END 2022-01-17 23:59 | disposition home or self-care (01) ==
LOC: US 08:44
PROVIDERS: PCP Family Medicine; Referring Provider Family Medicine; Visit Provider Family Medicine
DX: R10.11 Right upper quadrant pain (principal)
CPT/HCPCS: 76705

== ENCOUNTER → 2022-05-03 | Outpatient (CLI) | payer MEDICARE, SELFPAY ==
--- NOTE | 2022-05-03 09:08 | RAD_ITS ---
STUDY: X-RAY - LEFT SHOULDER REASON FOR EXAM: Male, 66 years old. INJURY TECHNIQUE: 5 view(s) of the shoulder. COMPARISON: None. FINDINGS: Normal glenohumeral articulation. There is degenerative arthrosis of the acromioclavicular joint without inferior osseous spur formation. Normal acromion. Normal humeral head and visualized proximal humerus. The soft tissue structures are unremarkable. Normal visualized pulmonary apex. RAD/Shoulder min 2 Views IMPRESSION: Osteoarthritis of the left acromioclavicular joint. Electronically Signed: Ray Lemon MD at 15:24 EDT ,
== END | disposition home or self-care (01) ==
LOC: MTRAD 09:06
PROVIDERS: PCP Family Medicine; Referring Provider Family Medicine; Visit Provider Family Medicine
DX: S49.92XA Unspecified injury of left shoulder and upper arm, initial encounter (principal)
CPT/HCPCS: 73030

== ENCOUNTER → 2022-07-12 | Outpatient (CLI) | payer MEDICARE, SELFPAY ==
[2022-07-12 11:11] LABS: Anion Gap 5 (5-15); BUN 23 mg/dL (7-18); Chloride 108 mmol/L (98-107); Cholesterol 144 mg/dL (200); Creatinine, Serum 1.28 mg/dL (0.70-1.30); EST Glomerular Filtration Rate 59 mL/min (>60); Est Glom Filt Rate - Afr Amer 72 mL/min (>60); Glucose 109 mg/dL (74-106); High Density Lipoprotein 31 mg/dL; Potassium 4.2 mmol/L (3.5-5.1); Sodium Level 137 mmol/L (136-145); Triglycerides 162 mg/dL; Very Low Density Lipoprotein 32 mg/dL (5-40)
== END | disposition home or self-care (01) ==
LOC: MFPLAB 08:53
PROVIDERS: PCP Family Medicine; Referring Provider Family Medicine; Visit Provider Family Medicine
DX: I10 Essential (primary) hypertension (principal)
CPT/HCPCS: 36415; 80048; 80061

== ENCOUNTER → 2023-06-13 | Outpatient (CLI) | payer MEDICARE, SELFPAY ==
--- NOTE | 2023-06-13 09:33 | RAD_ITS ---
INDICATION: PAIN EXAMINATION/TECHNIQUE: X-RAY - RIGHT XR Ankle Min 3 Views 3 VIEWS COMPARISON: FINDINGS: SOFT TISSUES: No soft tissue swelling or gas. No radiopaque foreign body. BONES/JOINTS: No acute fracture or subluxation.. Normal alignment. Preservation of the joint space.. No sclerotic or destructive changes observed. RAD/Ankle min 3 Views IMPRESSION: Negative. Electronically Signed: Paul Dill, at 10:16 EDT ,
[2023-06-13 11:25] LABS: Anion Gap 5 (5-15); BUN 23 mg/dL (7-18); BUN/Creat Ratio 17.8 RATIO (10-20); Calcium,Total 8.9 mg/dL (8.5-10.1); Chloride 114 mmol/L (98-107); Cholesterol 152 mg/dL (200); Creatinine, Serum 1.29 mg/dL (0.70-1.30); EST Glomerular Filtration Rate 59 mL/min (>60); Est Glom Filt Rate - Afr Amer 71 mL/min (>60); Glucose 104 mg/dL (74-106); High Density Lipoprotein 34 mg/dL; PSA,Total - Annual Screen 0.41 ng/mL (0.00-4.00); Potassium 4.6 mmol/L (3.5-5.1); Sodium Level 142 mmol/L (136-145); Triglycerides 134 mg/dL; Very Low Density Lipoprotein 27 mg/dL (5-40)
== END | disposition home or self-care (01) ==
PROVIDERS: PCP Family Medicine; Referring Provider Family Medicine; Visit Provider Family Medicine
DX: Z00.00 Encounter for general adult medical examination without abnormal findings (principal); M25.571 Pain in right ankle and joints of right foot
CPT/HCPCS: 36415; 73610; 80048; 80061; 84153; G0103

== ENCOUNTER → 2023-07-07 | Outpatient (CLI) | payer MEDICARE, SELFPAY ==
--- NOTE | 2023-07-07 07:39 | CT_ITS ---
EXAM: CT CHEST, LUNG CANCER SCREENING WITHOUT INTRAVENOUS CONTRAST CLINICAL INDICATION: SMOKING TECHNIQUE: Helically acquired images were obtained of the chest without intravenous contrast using low dose (LDCT) lung cancer screening protocol. This CT exam was performed using one or more of the following dose reduction techniques: automated exposure control, adjustment of the mA and/or kV according to patient size, and/or use of iterative reconstruction technique. COMPARISON: 05/21/2017 FINDINGS: LUNGS AND PLEURAL SPACES: There are multiple 6 x 1.6 cm noncalcified nodule in the right lower lobe which has increased in size from the reference exam and measures 1.2 cm. No pleural effusion or thickening. No pneumothorax. HEART: Unremarkable. Heart size is normal. No pericardial effusion. No significant coronary artery calcifications. MEDIASTINUM: Unremarkable. No mediastinal or hilar adenopathy. Esophagus is unremarkable. No hiatal hernia. THYROID: Unremarkable. No thyroid lesions. BONES/JOINTS: Unremarkable. No suspicious lytic or blastic abnormality. VASCULATURE: Unremarkable. Thoracic aorta is non-dilated. LYMPH NODES: Unremarkable. No enlarged lymph nodes. CT/Low Dose CT Lung Screening IMPRESSION: Noncalcified nodule in the right lower lobe which is mildly size from the reference exam. Lung-RADS score: 4B - Very Suspicious. Recommend chest CT with or without contrast, PET/CT and/or tissue sampling depending on the probability of malignancy and comorbidities. PET/CT may be used when there is a >=8 mm solid component. For new large nodules that develop on an annual repeat screening CT, a 1 month LDCT may be recommended to address potentially infectious or inflammatory conditions. Electronically Signed: Claudio Beard MD at 0:03 EDT ,
== END | disposition home or self-care (01) ==
LOC: CT 07:37
PROVIDERS: PCP Family Medicine; Referring Provider Family Medicine; Visit Provider Family Medicine
DX: F17.200 Nicotine dependence, unspecified, uncomplicated (principal)
CPT/HCPCS: 71271

== ENCOUNTER → 2023-07-19 | Outpatient (CLI) | payer MEDICARE, SELFPAY ==
--- NOTE | 2023-07-20 09:23 | PFT ---
INTRODUCTION: The patient is a 67-year-old male who presents for pulmonary function studies secondary to a diagnosis of pulmonary nodule. Respiratory therapy reported good patient effort. Bronchodilators were used during testing. INTERPRETATION: Forced expiration spirometry demonstrates the presence of a moderately severe large airways obstructive ventilatory defect. There was a significant response to aerosolized bronchodilators. Spirograms are of good quality but do not plateau indicating slow emptying of the lungs. Body plethysmography was performed and revealed an elevated RV to 164% of predicted, indicative of underlying air trapping. Diffusing capacity by single breath CO is reduced to 52% of predicted. IMPRESSION: Partially reversible moderately severe large airways obstructive ventilatory defect with associated air trapping and symmetric reduction in diffusion capacity.
== END | disposition home or self-care (01) ==
LOC: PSN 08:26
PROVIDERS: PCP Family Medicine; Referring Provider Internal Medicine Critical Care Medicine; Visit Provider Internal Medicine Critical Care Medicine
DX: R91.1 Solitary pulmonary nodule (principal)
CPT/HCPCS: 94060; 94726; 94729

== ENCOUNTER → 2023-07-24 | Outpatient (CLI) | payer MEDICARE, SELFPAY ==
[2023-07-24 08:47] VITALS: PULSE 65; PULSE 67; PULSE 73; PULSE 74; PULSE 79; PULSE 82; PULSE 83; PULSE 89; O2SAT 100; O2SAT 97; O2SAT 98; O2SAT 99
--- NOTE | 2023-07-24 08:51 | CPS ---
Finger probe pulse ox was unable to merchandise pickup/receiving associate a reliable reading. Used ear probe for testing.
--- NOTE | 2023-07-25 09:52 | WT_ITS ---
PSN 6 Minute Walk Test 6 Minute Walk Test 6 Minute Walk Test: 6 Minute Walk Test PSN:6-Minute Walk Test Start: 07/24/23 08:47 Freq: Status: Active Protocol: [id number] Document 07/24/23 08:47 LISA (Rec: 07/24/23 08:52 LISA [id number]) 6 Minute Walk Test Date Performed 07/24/23 Time Performed 08:15 Height 5 ft 11 in Weight: 160 lb Weight in Pounds 160.[address]: Christoph Manzo Assistive device used: None Pre-test Oxygen Delivery Method Room Air Pulse Ox 98 Pulse Rate (60-100) 67 Dyspnea Bandar Scale (0-10) 0 Exertion Bandar Scale (6-20) 6 1st minute Oxygen Delivery Method Room Air Pulse Ox 97 Pulse Rate (60-100) 73 2nd minute Oxygen Delivery Method Room Air Pulse Ox 100 Pulse Rate (60-100) 74 3rd minute Oxygen Delivery Method Room Air Pulse Ox 98 Pulse Rate (60-100) 82 4th minute Oxygen Delivery Method Room Air Pulse Ox 98 Pulse Rate (60-100) 83 5th minute Oxygen Delivery Method Room Air Pulse Ox 99 Pulse Rate (60-100) 89 6th minute Oxygen Delivery Method Room Air Pulse Ox 99 Pulse Rate (60-100) 79 Dyspnea Bandar Scale (0-10) 1 Exertion Bandar Scale (6-20) 11 Post-test Oxygen Delivery Method Room Air Pulse Ox 98 Pulse Rate (60-100) 65 Full Laps Walked 22 Partial Lap, Number of Tiles Walked 48 Total Distance Walked (ft) 1346 07/24/23 08:51 Cardiopulmonary Services by Brianda Woods Finger probe pulse ox was unable to brain picker a reliable reading. Used ear probe for testing. Initialized on 07/24/23 08:51 - END OF NOTE Interpretation Interpretation: The patient ambulated 1346 feet over the course of 6 minutes beginning on room air without assistive devices. Pretesting oxygen saturation was noted to be 98% on room air. With ambulation, the lito oxygen saturation was 97%. There was no significant exertional oxygen desaturation. Recommendations Recommendations: There is no indication for the use of supplemental oxygen at this time.
== END | disposition home or self-care (01) ==
LOC: PSN 08:00
PROVIDERS: PCP Family Medicine; Referring Provider Internal Medicine Critical Care Medicine; Visit Provider Internal Medicine Critical Care Medicine
DX: R91.1 Solitary pulmonary nodule (principal)
CPT/HCPCS: 94618

== ENCOUNTER → 2023-10-10 | Outpatient (CLI) | payer MEDICARE, SELFPAY ==
--- NOTE | 2023-10-10 07:22 | CT_ITS ---
HISTORY: follow up RLL nodule. TECHNIQUE: Helically acquired images were obtained of the chest without contrast. A radiation dose optimization technique was used for this scan. 960 images. COMPARISON: 07/07/2023, 05/31/2017. FINDINGS: LARGE AIRWAYS: Patent. LUNGS: Emphysema with a 1.6 x 1.7 cm noncalcified lobulated right lower lobe nodule medially abutting the major fissure and mediastinum. PLEURA: No pneumothorax or significant pleural effusion. HEART/PERICARDIUM: Heart within normal limits in size with coronary artery calcification. No pericardial effusion. VESSELS: Mildly ectatic thoracic aorta with atherosclerosis noted. MEDIASTINUM/EVONNE: No pathologically enlarged adenopathy. UPPER ABDOMEN: Abdominal aortic stent graft noted. Colonic diverticulosis observed. Bilateral nonobstructing renal calculi. Mild left renal scarring. BONES: Mild degenerative change. CT/Chest without Contrast IMPRESSION: 1.6 x 1.7 cm right lower lobe pulmonary nodule, unchanged from 07/07/2023 but increased compared to 05/31/2017. Lungs-RADS category 4B. Recommend chest CT with or without contrast, PET/CT and/or tissue sampling depending on the probability of malignancy and comorbidities. PET/CT may be used when there is a >=8 mm solid component. For new large nodules that develop on an annual repeat screening CT, a 1 month LDCT may be recommended to address potentially infectious or inflammatory conditions. Electronically Signed: Tita Potter MD at 11:29 EST ,
== END | disposition home or self-care (01) ==
LOC: CT 07:21
PROVIDERS: PCP Family Medicine; Referring Provider Internal Medicine Critical Care Medicine; Visit Provider Internal Medicine Critical Care Medicine
DX: R91.1 Solitary pulmonary nodule (principal)
CPT/HCPCS: 71250

== ENCOUNTER → 2024-08-07 | Outpatient (CLI) | payer MEDICARE, SELFPAY ==
[2024-08-07 10:47] LABS: Anion Gap 5 (5-15); BUN 23 mg/dL (7-18); BUN/Creat Ratio 17.6 RATIO (10-20); Calcium,Total 9.3 mg/dL (8.5-10.1); Chloride 109 mmol/L (98-107); Cholesterol 148 mg/dL (200); Creatinine, Serum 1.31 mg/dL (0.70-1.30); EST Glomerular Filtration Rate 57 mL/min (>60); Est Glom Filt Rate - Afr Amer 69 mL/min (>60); Glucose 109 mg/dL (74-106); High Density Lipoprotein 33 mg/dL; PSA,Total- Diagnostic 0.37 ng/mL (0.0-4.0); Potassium 4.5 mmol/L (3.5-5.1); Sodium Level 141 mmol/L (136-145); Triglycerides 124 mg/dL; Very Low Density Lipoprotein 25 mg/dL (5-40)
== END | disposition home or self-care (01) ==
LOC: MFPLAB 08:59
PROVIDERS: PCP Family Medicine; Visit Provider Family Medicine
DX: I10 Essential (primary) hypertension (principal); R63.4 Abnormal weight loss; Z85.46 Personal history of malignant neoplasm of prostate
CPT/HCPCS: 36415; 80048; 80061; 84153; 84443

== ENCOUNTER → 2024-09-18 | Outpatient (CLI) | payer MEDICARE, SELFPAY ==
--- NOTE | 2024-09-18 07:17 | CT_ITS ---
STUDY: CT CHEST WITHOUT CONTRAST REASON FOR EXAM: Male, 68 years old. Lung nodules RADIATION DOSAGE (If Supplied By Facility): CTDIvol = ( 9.77 ) mGy, DLP = ( 383.39 ) mGycm TECHNIQUE: Transaxial imaging was performed without the administration of intravenous contrast material. Multiplanar coronal and sagittal images were reformatted. Individualized dose optimization techniques were used for this CT. COMPARISON: Comparison is made with prior study dated October 10, 2023. FINDINGS: CHEST Stable small bilateral axillary lymph nodes. Stable 1.6 cm x 1.4 cm noncalcified lobulated nodule in the anterior medial aspect of the right lower lobe abutting the major fissure and mediastinum. There is no demonstrated pleural abnormality. There are calcifications of the coronary arteries. Normal mediastinum. Normal hilar regions. Normal unenhanced pulmonary arteries. Minimally dilated root of the ascending thoracic aorta. Calcification of the aortic arch. There are multi-level degenerative changes of the thoracic spine. Status post endoluminal stent grafting of the proximal abdominal aorta. CT/Chest without Contrast IMPRESSION: Stable noncalcified nodule in the medial aspect of the right lower lobe anteriorly as described. Twelve-month follow-up recommended. Electronically Signed: Ray Lemon MD at 14:43 EDT ,
== END | disposition home or self-care (01) ==
PROVIDERS: PCP Family Medicine; Referring Provider Family Medicine; Visit Provider Family Medicine
DX: R91.8 Other nonspecific abnormal finding of lung field (principal)
CPT/HCPCS: 71250

== ENCOUNTER → 2024-12-12 | Outpatient (CLI) | payer MEDICARE, SELFPAY ==
--- NOTE | 2024-12-12 10:04 | RAD_ITS ---
STUDY: X-RAY - LEFT SHOULDER REASON FOR EXAM: Male, 69 years old. PAIN TECHNIQUE: 4 views of the left shoulder. COMPARISON: Left shoulder radiographs dated 05/03/2022. FINDINGS: Normal glenohumeral articulation. There is unchanged acromioclavicular arthrosis. Normal acromion. Normal humeral head and visualized proximal humerus. The soft tissue structures are unremarkable. There is no demonstrated fracture. Normal visualized pulmonary apex. RAD/Shoulder min 2 Views IMPRESSION: Unchanged acromioclavicular arthrosis. No demonstrated fracture. Electronically Signed: Neymar Landis MD at 16:12 EST ,
== END | disposition home or self-care (01) ==
PROVIDERS: PCP Family Medicine; Referring Provider Family Medicine; Visit Provider Family Medicine
DX: M25.512 Pain in left shoulder (principal)
CPT/HCPCS: 73030

== ENCOUNTER → 2025-01-16 | Outpatient (CLI) | payer MEDICARE, SELFPAY ==
--- NOTE | 2025-01-16 06:38 | MRI_ITS ---
PROCEDURE: MRI left shoulder without IV contrast REASON FOR EXAM: Pain TECHNIQUE: Multisequence multiplanar MR images of the left shoulder were obtained without the administration of intravenous contrast. COMPARISON: None. FINDINGS 50% partial-thickness articular tear of the posterior supraspinatus tendon at its critical zone measuring 4 mm in width. Adjacent less than 50% intrasubstance tear of the posterior supraspinatus tendon at its distal insertion measuring 4 mm in width. Mild superimposed supraspinatus tendinopathy. Infraspinatus and subscapularis tendons are intact. No significant rotator cuff muscle atrophy or edema. Intact long head biceps tendon. Glenohumeral alignment is intact. No focal chondral defects or joint effusion. No displaced labral tears or paralabral cysts. Acromioclavicular alignment is intact. Mild/moderate acromioclavicular joint osteoarthritis including articular surface irregularity and small marginal osteophytes. Negative for acute fracture or marrow replacement. No significant fluid in the subacromial/subdeltoid bursa. MRI/Upper Ext Joint Only(Routine) IMPRESSION: Posterior supraspinatus tendinopathy with small superimposed partial-thickness tears as above. Reading Location: [facility]
== END | disposition home or self-care (01) ==
PROVIDERS: PCP Family Medicine; Referring Provider Family Medicine; Visit Provider Family Medicine
DX: M25.512 Pain in left shoulder (principal)
CPT/HCPCS: 73221

== ENCOUNTER → 2025-09-25 | Outpatient (CLI) | payer MEDICARE, SELFPAY ==
[2025-09-25 15:37] LABS: PSA,Total - Annual Screen 0.35 ng/mL (0.02-4.00)
== END | disposition home or self-care (01) ==
LOC: MFPLAB 12:04
PROVIDERS: PCP Family Medicine
DX: Z12.5 Encounter for screening for malignant neoplasm of prostate (principal)
CPT/HCPCS: 36415; 84153; G0103

== ENCOUNTER → 2025-10-14 | Outpatient (CLI) | payer MEDICARE, SELFPAY ==
--- NOTE | 2025-10-14 18:18 | CT_ITS ---
PROCEDURE: LOW DOSE CT LUNG SCREENING 10/14/2025 REASON FOR EXAM: SMOKING 52 YEARS History of right lung nodule. TECHNIQUE: Procedure Code: [id number] Modality: CT Procedure: LOW DOSE CT LUNG SCREENING Coronal and Sagittal reconstruction series were provided. One or more dose reduction techniques were used (e.g., Automated exposure control, adjustment of the mA and/or kV according to patient size, use of iterative reconstruction technique). REFERENCE LINK: [facility] Lung-RADS RADIATION DOSE SUMMARY: CTDlvol: 2.39 mGy DLP: 93.83 mGycm COMPARISON: September 18, 2024. FINDINGS: PULMONARY NODULES: (Only nodules >3mm are reported) Nodules described below are on series 1 unless otherwise specified. Pulmonary Nodules: Stable 1.6 cm 1.4 cm noncalcified nodule in the medial anterior aspect of the right lower lobe abutting the right major fissure. Hardware:None Lymph Nodes:Stable small bilateral axillary lymph nodes. Heart and Vasculature:The heart is nonenlarged.Atherosclerotic calcifications of the thoracic aorta. Thoracic aorta and pulmonary arteries have normal contours; noncontrast technique limits evaluation. Coronary Artery Calcifications: Present Lungs and Airways: Emphysematous changes. Prominence of the central pulmonary arteries. This is unchanged. Pleura:No pleural effusion. Upper Abdomen:Unremarkable Bones:Degenerative changes of the thoracic spine. CT/Low Dose CT Lung Screening IMPRESSION: Stable examination. 12 month follow-up recommended. Coronary artery calcification (CAC) is is present Lung-RADS Category: 2 BENIGN (BASED ON IMAGING FEATURES OR INDOLENT BEHAVIOR). RECOMMEND 12-MONTH SCREENING LDCT. Other Significant Findings: Reading Location: [facility]
--- OUTSIDE RECORDS SUMMARY | 2025-10-14 18:21 | XMS RPT_ITS | CCD ---
Author Organization [facility] Care Team Providers Care Lan Specialist Name Role Phone TIBURCIO WARNER Attending Unavailable ILIA, URBAN Referring Unavailable ILIA, URBAN Primary Care Unavailable LUIS FERNANDO CHAUDHARY Attending Unavailable ILIA, URBAN Referring Unavailable ILIA, URBAN Primary Care Unavailable GABBY PARNELL Referring Unavailable ILIA, URBAN Primary Care Unavailable GABBY PARNELL Attending Unavailable ILIA, URBAN Referring Unavailable ILIA, URBAN Primary Care Unavailable KT HILL Attending Unavailable ILIA, URBAN Referring Unavailable ILIA, URBAN Primary Care Unavailable KT HILL Attending Unavailable ILIA, URBAN Referring Unavailable ILIA, URBAN Primary Care Unavailable Dr. Urban Kelly Primary Care Provider [phone] Urban Kelly Referring Provider Dr. Mallory Jacobs Attending Provider Urban Kelly MD Primary Care Provider Tiburcio Warner (Hist) Unavailable Dr. Urban Kelly Primary Care Provider [phone] Urban Kelly Referring Provider Dr. Christoph Manzo Attending Provider Dr. Christoph Manzo Referring Provider Dr. Christoph Manzo Other Provider Dr. Cristopher Nicholas Attending Provider Urban Kelly MD Primary Care Provider Tiburcio Warner (Hist) Unavailable Dr. Urban Kelly Primary Care Provider Dr. Urban Kelly Referring Provider [phone] Christoph Manzo Attending Provider Jovany, Dr. Hawthorne Referring Provider [phone] Christoph Manzo Other Provider Dr. Cristopher Nicholas Attending Provider Urban Kelly MD Primary Care Provider Jeanna GUTIERREZ, Tiburcio Kwong ([facility]) Unavailable SHIMON, URBAN Hobson Primary Care Unavailable TRACEY SANTAMARIA Referring Unavailable SHIMON, URBAN Hobson Primary Care Unavailable SUDHA ROSS Attending Unavailable SHIMON, URBAN Hobson Referring Unavailable SHIMON, URBAN [place] Primary Care Unavailable PAUL BORGES Attending Unavailable SHIMON, URBAN oHbson Referring Unavailable KELLY, URBAN Hobson Primary Care Unavailable DEANDRA, PAUL Clement Referring Unavailable DEANDRA, PAUL Clement Attending Unavailable SHIMON, URBAN Hobson Primary Care Unavailable HINA, TRACEY Referring Unavailable Shimon GUTIERREZ, Dr. Duggan Primary Care Provider [phone] Shimon GUTIERREZ, Dr. Duggan Attending Provider Shimon GUTIERREZ, Dr. Duggan Referring Provider Shimon, Urban Referring Unavailable Kelly, Urban Attending Unavailable Kelly, Urban Primary Care Unavailable Kelly, Urban Primary Care Unavailable Kelly, Urban Referring Unavailable Kelly, Urban Attending Unavailable Kelly, Urban Primary Care Unavailable McMorrow, Jef Attending Unavailable Medications Current Medications Medication Drug Class(es) Dates Sig (Normalized) Sig (Original) amLODIPine 10 mg oral tablet (20 sources) Dihydropyridine Calcium Channel Cheng Start: 01-26-2022 take 1 tablet by mouth once daily Amlodipine (Norvasc) 10 mg tablet Active 10 mg PO DAILY January 26, 2022 1:00am amLODIPine (NORV ASC) 5 mg tablet Take by mouth once daily. Active Comment on above: Take by mouth once d aily. ascorbic acid 500 mg oral tablet (20 sources) Vitamin C Start: 01-26-2022 take 1 tablet by mouth once daily Ascorbic Acid (Vitamin C) 500 mg tablet Active 500 mg PO DAILY January 26, 2022 1:00am Start: 09-24-2014 take 1 tablet by el once daily Ascorbic Acid 1,000 mg tablet Take 1 tablet by mouth once daily. 0 09/24/2014 Active Comment on above: Take 1 tablet by el th once daily. iv contrast (will be provided with radiology test) (3 sources) Start: End: inject 1 dose intravenously once iv contrast (will be provided with radiology test) Indications: History of AAA (abdominal aortic aneurysm) repair , 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) CTA ABD/PEL - No IV access, insert saline lock prior to the sedation, infusion, injection for imaging exam. Discontinue saline lock post exam. If Pt. has a central line or IVAD, may access for administration according to line specific nursing protocol. Once exam is complete flush line and de-access according to line specific nursing protocol in the CT contrast administration guidelines link. 1 Each 10/20/2024 10/21/2024 Active Start: 07-25-2023 End: 07-26-2023 inject 1 dose intravenously once iv contrast (will be provided with radiology test) Indications: History of AAA (abdominal aortic aneurysm) repair , 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) CTA ABD/PEL - No IV access, insert saline lock prior to the sedation, infusion, injection for imaging exam. Discontinue saline lock post exam. If Pt. has a central line or IVAD, may access for administration according to line specific nursing protocol. Once exam is complete flush line and de-access according to line specific nursing protocol in the CT contrast administration guidelines link. 1 Each 0 07/25/2023 07/26/2023 Active Start: 08-22-2022 End: 08-23-2022 inject 1 dose intravenously once iv contrast (will be provided with radiology test) Indications: Juxtarenal abdominal aortic aneurysm (AAA) without rupture , History of AAA (abdominal aortic aneurysm) repair CTA ABD/PEL - No IV access, insert saline lock prior to the sedation, infusion, injection for imaging exam. Discontinue saline lock post exam. If Pt. has a central line or IVAD, may access for administration according to line specific nursing protocol. Once exam is complete flush line and de-access according to line specific nursing protocol in the CT contrast administration guidelines link. 1 Each 0 08/22/2022 08/23/2022 Active Comment on above: CTA ABD/PEL - No IV access, insert saline lock prior to the sedation, infusion, injection for imaging exam. Discontinue saline lock post exam. If Pt. has a central line or IVAD, may access for administration according to line specific nursing protocol. Once exam is complete flush line and de-access according to line specific nursing protocol in the CT contrast administration guidelines link. lisinopril 20 mg oral tablet (20 sources) Angiotensin Converting Enzyme Inhibitor Start: 1 take 1 tablet by mouth once daily Lisinopril (Prinivil) 20 mg tablet Active 20 mg PO DAILY May 26, 2021 12:00am Comment on above: Take 20 mg by mouth once daily. Datil 0-Jtz-Lnn-Fish Oil (Fish Oil) 1,200 (144-216) mg capsule (6 sources) Start: Datil 6-Urq-Yqz-Fish Oil (Fish Oil) 1,200 (144-216) mg capsule Active NMA PO January 26, 2022 1:00am Start: 01-26-2022 Datil 3-Dha-Ep a-Fish Oil (Fish Oil) 1,200 (144-216) mg capsule Active CAP PO January 26, 2022 12:00am Start: 01-26-2022 Datil 3-Dha-Ep a-Fish Oil (Fish Oil) 1,200 (144-216) mg capsule Active CAP PO January 26, 2022 1:00am omega 9-xeh-mkl-fish oil 100-160-1,000 mg cap (14 sources) Start: 09-24-2014 omega 0-tek-xmz-fish oil 100-160-1,000 mg cap Take by mouth once daily. 0 09/24/2014 Active Comment on above: Take by mouth once d aily. pantoprazole 40 mg delayed release oral tablet (6 sources) Proton Pump Inhibitor Start: 01-26-2022 take 1 tablet by mouth once daily Pantoprazole 40 mg tablet,delayed release (DR/EC) Active 40 mg PO DAILY January 26, 2022 1:00am simvastatin 10 mg oral tablet (20 sources) HMG-CoA Reductase Inhibitor Start: 03-25-2014 take 1 tablet by mouth at bedtime Simvastatin 10 MG tablet Active 10 mg PO AT BEDTIME March 25, 2014 12:00am Comment on above: Take 10 mg by mouth daily at bedtime. Completed/Discontinued Medications Medication Drug Class(es) Dates Sig (Normalized) Sig (Original) calcium chloride 0.0014 meq/ml / potassium chloride 0.004 meq/ml / sodium chloride 0.103 meq/ml / sodium lactate 0.028 meq/ml injectable solution (1 source) Start: 03-10-2024 End: 03-10-2024 lactated ringers iv infusion cephalexin 500 mg oral capsule (6 sources) Cephalosporin Antibacterial Start: 05-26-2016 End: 05-31-2016 take 1 capsule by mouth twice daily Cephalexin 500 MG capsule Discontinued 500 mg PO TWICE A DAY May 26, 2016 12:00am May 31, 2016 12:12pm diphenhydrAMINE (1 source) Histamine-1 Receptor Antagonist Start: 03-10-2024 End: 03-10-2024 diphenhydrAMINE 12.5-50 mg injection (BENADRYL) doxazosin 2 mg oral tablet (7 sources) alpha-Adrenergic Cheng Start: 12-06-2016 End: 08-22-2022 take 1 tablet by mouth once daily Doxazosin 2 MG tablet Discontinued 2 mg PO DAILY November 27, 2018 1:00am January 26, 2022 2:16pm Comment on above: Take 1 tablet by el daily at bedtime. 1 ml fentaNYL 0.05 mg/ml injection (1 source) Opioid Agonist Start: 03-10-2024 End: 03-10-2024 fentaNYL 50 mcg/mL 25-100 mcg injection (SUBLIMAZE) gabapentin 300 mg oral capsule (2 sources) Anti-epileptic Agent Start: 07-01-2021 End: 08-22-2022 take 1 capsule by mouth three times daily gabapentin (NEURONTIN) 100 mg capsule Take 1 capsule by mouth three times daily for 90 days. 90 capsule 2 07/01/2021 08/22/2022 Discontinued Start: 07-01-2021 End: 08-22-2022 take 1 capsule by mouth once daily at bedtime gabapentin (NEURONTIN) 300 mg capsule Take 1 capsule by mouth daily at bedtime for 90 days. 30 capsule 2 07/01/2021 08/22/2022 Discontinued Comment on above: Take 1 capsule by mo ut daily at bedtime for 90 days. Take 1 capsule by mo ut three times daily for 90 days. 5 ml midazolam 1 mg/ml injection (1 source) Benzodiazepine Start: 03-10-2024 End: 03-10-2024 midazolam (PF) 1-5 mg injection (VERSED) Problems Active Problems Problem Classification Problem Date Documented Date Episodic/Chronic Abdominal pain (7 sources) Right upper quadrant pain; Translations: [Right upper quadrant pain] Episodic Aortic; peripheral; and visceral artery aneurysms (20 sources) Abdominal aortic aneurysm without rupture; Translations: [Juxtarenal aortic aneurysm] Onset: 12-20-2016 Chronic Bacterial infection; unspecified site (6 sources) History of methicillin resistant Staphylococcus aureus infection; Translations: [Personal history of Methicillin resistant Staphylococcus aureus infection] 01-26-2022 Episodic Biliary tract disease (7 sources) Gallstone; Translations: [Calculus of gallbladder without cholecystitis without obstruction] Episodic Comment on above: & gallbladder polyp 3 mm Cancer of prostate (20 sources) Malignant tumor of prostate; Translations: [Malignant neoplasm of prostate] Onset: 10-25-2017 10-25-2017 Chronic Essential hypertension (6 sources) Hypertensive disorder; Translations: [Essential (primary) hypertension] 01-26-2022 Chronic Fever of unknown origin (6 sources) Fever; Translations: [Fever, unspecified] 12-04-2018 Episodic Hyperplasia of prostate (14 sources) Benign prostatic hypertrophy with outflow obstruction; Translations: [Benign prostatic hyperplasia with lower urinary tract symptoms] Onset: 10-25-2017 10-25-2017 Chronic Other lower respiratory disease (14 sources) Nodule of lung; Translations: [Solitary pulmonary nodule] 06-14-2017 Episodic Other lower respiratory disease (4 sources) Solitary nodule of lung; Translations: [Solitary pulmonary nodule] 07-10-2023 Episodic Other lower respiratory disease (3 sources) Solitary pulmonary nodule; Translations: [Solitary pulmonary nodule] 07-10-2023 Episodic Other male genital disorders (14 sources) Male erectile dysfunction, unspecified; Translations: [Impotence of organic origin] Onset: 10-25-2017 10-25-2017 Chronic Other nutritional; endocrine; and metabolic disorders (5 sources) Weight loss; Translations: [Abnormal weight loss] 12-04-2018 Episodic Other nutritional; endocrine; and metabolic disorders (1 source) Weight decreased; Translations: [Abnormal weight loss] 05-30-2016 Episodic Other screening for suspected conditions (not mental disorders or infectious disease) (20 sources) Patient encounter status; Translations: [Encounter for screening for malignant neoplasm of colon] Onset: 09-24-2014 09-24-2014 Episodic Residual codes; unclassified (1 source) Other specified postprocedural states; Translations: [History of AAA (abdominal aortic aneurysm) repair] Onset: 11-13-2024 Episodic Screening and history of mental health and substance abuse codes (9 sources) Tobacco use and exposure - finding; Translations: [Personal history of nicotine dependence] 12-04-2018 Episodic Substance-related disorders (14 sources) Nicotine dependence; Translations: [Nicotine dependence, unspecified, uncomplicated] Onset: 06-07-2021 06-07-2021 Chronic Unclassified (6 sources) AAA 3.9 01-26-2022 Unclassified (6 sources) radiation treatment 12-04-2018 Unclassified (1 source) 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); Translations: [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)] Onset: 12-20-2016 Past or Other Problems Problem Classification Problem Date Documented Date Episodic/Chronic Calculus of urinary tract (14 sources) Kidney stone; Translations: [Calculus of kidney] Onset: 10-25-2017 10-25-2017 Episodic Other non-traumatic joint disorders (1 source) Pain in left shoulder; Translations: [Pain in left shoulder] Onset: 01-27-2025 Episodic Other skin disorders (14 sources) Sebaceous cyst of skin; Translations: [Sebaceous cyst] Onset: 09-24-2014 09-24-2014 Episodic Residual codes; unclassified (19 sources) History of repair of aneurysm of abdominal aorta; Translations: [Other specified postprocedural states] Onset: 06-10-2021 Episodic Results Test Name Value Interpretation Reference Range Facility PSA,Total - Annual Screenon 09-25-2025 PSA,TOT SCREEN 0.35 ng/mL Normal 0.02-4.00 [facility] Comment on above: Result Comment: This test was performed using the [employer] tPSA method. Measured values of a patient??sample can vary depending on the testing procedure used. PSA values determined on patient samples by different testing procedures cannot be used interchangeably. If there is a change in PSA assays while monitoring therapy, sequential testing should be performed to confirm baseline values. Performed By: #### L [id number] #### [facility] [address] [place], [address] CNOVon 01-20-2025 CNOV Office Visit (VASSWS ) ARTURO SANTIAGO ([id number]) 1955 Date Time Provider Department 01/20/25 9:15 AM SUDHA ROSS VASSWS During your visit today, we recorded the following information about you: Pulse Blood pressure Weight 75/minute 148/75 70.3 kg Sudha Ross DO 01/22/2025 4:10 PM Signed [facility]ASCULAR SURGERY OUTPATIENT VISIT DATE January 20, 2025 OUTPATIENT VISIT TYPE ESTABLISHED SERVICE DATE: 01/20/2025 SERVICE TIME: 9:48 AM PRIMARY CARE PHYSICIAN: Urban Kelly MD HISTORY OF PRESENT ILLNESS: Mr. Santiago is a 69 year old male who presents today for a vascular surgery follow-up visit on history FEVAR [place] [address] Weiss. He denies any complaints PAST MEDICAL HISTORY Diagnosis Date AAA (abdominal aortic aneurysm) (HCC) BPH with obstruction/lower urinary tract symptoms Calculus of kidney 10/25/2017 Elevated PSA Hyperlipidemia Hypertension Lung nodule Prostate cancer (HCC) Snoring PAST SURGICAL HISTORY Procedure Laterality Date CYSTOSCOPY,URETEROSCO PY,LITHOTRIPSY Right 12/2015 With stent CYSTOSCOPY,URETEROSCO PY,LITHOTRIPSY 06/2014 CYSTOSCOPY,URETEROSCO PY,LITHOTRIPSY 12/2018 EXC B9 LESION MRGN XCP SK TG T/A/L 0.6-1.0 CM N/A Back 1-2 years ago. FIDUCIAL MARKER PLACEMENT 01/28/2016 Into prostate HEMORRHOIDECTOMY HEMORRHOIDECTOMY 2002 IMRT BID RADT TX DELIVERY 04/2016 Prostate PAST SURGICAL HISTORY OF bursa removed from right elbow PROSTATE BIOPSY 12/23/2015 Positive for Jeramy 7 prostate cancer in 1 of 6 cores on left VASCULAR SURGERY PROCEDURE 06/01/2021 Fenestrated endovascular repair of abdominal aortic aneurysm. SOCIAL HISTORY Social History Tobacco Use Smoking status: Every Day Current packs/day: 0.50 Average packs/day: 0.5 packs/day for 57.2 years (28.6 ttl pk-yrs) Types: Cigarettes Start date: 1967 Smokeless tobacco: Never Tobacco comments: 5 cigarettes/ day Vaping Use Vaping status: Never Used Substance Use Topics Alcohol use: Yes Comment: RARE Drug use: No MEDICATIONS: lisinopril (ZESTRIL, PRINIVIL) 20 mg tablet Take 20 mg by mouth once daily. amLODIPine (NORVASC) 5 mg tablet Take by mouth once daily. simvastatin (ZOCOR) 10 mg tablet Take 10 mg by mouth daily at bedtime. Ascorbic Acid 1,000 mg tablet Take 1 tablet by mouth once daily. omega 6-gvp-udt-fish oil 100-160-1,000 mg cap Take by mouth once daily. ALLERGIES: ALLERGIES No Known Allergies PHYSICAL EXAM: BP 148/75 (BP Site: Left Arm, BP Position: Sitting, BP Cuff Size: Regular Adult) Pulse 75 Wt 70.3 kg (155 lb) SpO2 98% BMI 21.62 kg/m? General: Alert and oriented Integumentary: Normal color, no rash, no lesions. HEENT: EOM, pupils equal, round and reactive. Cardiovascular: Pulse regular. Lungs: No chest deformities or chest wall tenderness. Abdomen: non-distended Extremities: No deformity, no edema or tenderness, no joint swelling or clubbing. Neurological: Normal cognition and motor skills. Vascular: Posterior Tibial Right: Normal - Left: Normal Diagnostic tests reviewed for today's visit: Most recent labs Most recent imaging CTA- no evidence of endoleak noted Continued decrease of juxtarenal abdominal aortic aneurysm with the infrarenal aneurysmal sac measuring 4.3 x 3.8 cm, previously measuring 4.3 x 4.4 cm. No endoleak. Patent right renal stent with distal mild to moderate narrowing, unchanged from prior exams. IMPRESSION: Mr. Santiago is a 69 year old male with AAA . PLAN and RECOMMENDATIONS: Reviewed findings with Mr. Santiago Recommend follow up in one year with aortic and renal duplex, KUB Continue current blood pressure and cholesterol control Patient with unintentional weight loss this past year- CT noted adrenal nodule 1.5 cm that has been stable. Will forward results to PCP SIGNATURE: Sudha Ross DO PATIENT NAME: Arturo Santiago DATE: January 20, 2025 TIME: 9:48 AM Referring Provider: URBAN KELLY [[id number]] Allergies As of Date: 01/20/2025 (No Known Allergies) Date Reviewed: 01/20/2025 Reviewed by: Yana Leong OCCA - Fully Assessed Reason for Visit: Established Patient [175] Primary Visit Diagnosis: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) [I71.42] Order(s):US ABD AORTA COMPLETE [facility] [[id number]] Order #: [id number] FUTURE US RENAL ARTERY ASMITA [facility] [[id number]] Order #: [id number] FUTURE XR ABDOMEN 3V KUB W/OBLIQUES [[id number]] Order #: [id number] FUTURE Prescriptions as of 01/22/2025 - lisinopril (ZESTRIL, PRINIVIL) 20 mg tablet Take 20 mg by mouth once daily. - amLODIPine (NORVASC) 5 mg tablet Take by mouth once daily. - simvastatin (ZOCOR) 10 mg tablet Take 10 mg by mouth daily at bedtime. - Ascorbic Acid 1,000 mg tablet Take 1 tablet by mouth once daily. - omega 3-dha-epa-f (more content not included)... Normal [facility] Magnetic resonance imaging r eportOrdered By: Richard Machado on 01-19-2025 Study report [facility] Imaging Services [address], [place] [id number] Upper Ext Joint Only(Routine) MR#: [id number] Acct: [id number] Name: ARTURO SANTIAGO Rep #: [id number] : 1955 M 69 From: David Machado DO PCP: Dr. Urban Kelly MD Status: REG C HUMBERTO Study:Upper Ext Joint Only(Routine) Date of Exam: 01/16/25 Exam# [id number] Ordering Dr: Urban Kelly MD PROCEDURE: MRI left shoulder without IV contrast REASON FOR EXAM: Pain TECHNIQUE: Multisequence multiplanar MR images of the left shoulder were obtained without the administration of intravenous contrast. COMPARISON: None. FINDINGS 50% partial-thickness articular tear of the posterior supraspinatus tendon at its critical zone measuring 4 mm in width. Adjacent less than 50% intrasubstance tear of the posterior supraspinatus tendonat its distal insertion measuring 4 mm in width. Mild superimposed supraspinatus tendinopathy. Infraspinatus and subscapularis tendons are intact. No significant rotator cuffmuscle atrophy or edema. Intact long head biceps tendon. Glenohumeral alignment is intact. No focal chondral defects or joint effusion. No displaced labral tears or paralabral cysts. Acromioclavicular alignment is intact. Mild/moderate acromioclavicular joint osteoarthritis including articular surface irregularity and small marginal osteophytes. Negative for acute fracture or marrow replacement. No significant fluid in the subacromial/subdeltoi d bursa. MRI/Upper Ext Joint Only(Routine) IMPRESSION: Posterior supraspinatus tendinopathy with small superimposed partial-thickness tears as above. Reading Location: [facility] CC: Dr. Urban Kelly MD ~ Radiation Protection Technician: Signed [facility] Upper Ext Joint Only(Routine )on 01-16-2025 Upper Ext Joint Only(Routine) [facility] Imaging Services [address] [place] [id number] Upper Ext Joint Only(Routine) MR#: [id number] Acct: [id number] Name: ARTURO SANTIAGO Rep #: [id number] : 1955 M 69 From: Richard Burns PCP: Dr. Urban Kelly MD Status: REG CLI Study: Upper Ext Joint Only(Routine) Date of Exam: 0 01/16/25 Exam# [id number] Ordering Dr: Urban Kelly MD PROCEDURE: MRI left shoulder without IV contrast REASON FOR EXAM: Pain TECHNIQUE: Multisequence multiplanar MR images of the left shoulder were obtained without the administration of intravenous contrast. COMPARISON: None. FINDINGS 50% partial-thickness articular tear of the posterior supraspinatus tendon at its critical zone measuring 4 mm in width. Adjacent less than 50% intrasubstance tear of the posterior supraspinatus tendon at its distal insertion measuring 4 mm in width. Mild superimposed supraspinatus tendinopathy. Infraspinatus and subscapularis tendons are intact. No significant rotator cuff muscle atrophy or edema. Intact long head biceps tendon. Glenohumeral alignment is intact. No focal chondral defects or joint effusion. No displaced labral tears or paralabral cysts. Acromioclavicular alignment is intact. Mild/moderate acromioclavicular joint osteoarthritis including articular surface irregularity and small marginal osteophytes. Negative for acute fracture or marrow replacement. No significant fluid in the subacromial/subdeltoi d bursa. MRI/Upper Ext Joint Only(Routine) IMPRESSION: Posterior supraspinatus tendinopathy with small superimposed partial-thickness tears as above. Reading Location: [facility] CC: Dr. Urban Kelly MD Radiation Protection Technician: Signed Normal [facility] Shoulder min 2 Viewson 12-12 Shoulder min 2 Views [facility] Services [address] [place] [id number] Shoulder min 2 Views MR#: [id number] Acct: [id number] Name: ARTURO SANTIAGO Rep #: [id number] : 1955 M 69 From: Neymar Landis MD PCP: Dr. Urban Kelly MD Status: [facility] Study: Shoulder min 2 Views Date of Exam: 12/12/24 Exam# [id number] Ordering Dr: Urban Kelly MD [id number] STUDY: X-RAY - LEFT SHOULDER REASON FOR EXAM: Male, 69 years old. PAIN TECHNIQUE: 4 views of the left shoulder. COMPARISON: Left shoulder radiographs dated 05/03/2022. FINDINGS: Normal glenohumeral articulation. There is unchanged acromioclavicular arthrosis. Normal acromion. Normal humeral head and visualized proximal humerus. The soft tissue structures are unremarkable. There is no demonstrated fracture. Normal visualized pulmonary apex. RAD/Shoulder min 2 Views IMPRESSION: Unchanged acromioclavicular arthrosis. No demonstrated fracture. Electronically Signed: Neymar Landis MD at 16:12 EST , CC: Dr. Urban Kelly MD Radiation Protection Technician: Signed Normal [facility]20[facility] ARTURO SANTIAGO ([id number]) 1955 M Date Time Provider Department 11/25/24 KEITH WEISS During your visit today, we recorded the following information about you: Dave Lau 11/25/2024 11:25 AM Signed Spoke to Pt and he will follow up with Dr. Gregg @ [facility] History of AAA (abdominal aortic aneurysm) repair; Juxtarenal abdominal aortic aneurysm (AAA) without rupture *CTA A/P 11/13/24* Allergies As of Date: 11/25/2024 (No Known Allergies) Date Reviewed: 11/11/2024 Reviewed by: Haydee Silva, RT(R) - Fully Assessed Reason for Visit: Appointment [186] Cmt: Appointment Prescriptions as of 11/25/2024 - lisinopril (ZESTRIL, PRINIVIL) 20 mg tablet Take 20 mg by mouth once daily. - amLODIPine (NORVASC) 5 mg tablet Take by mouth once daily. - simvastatin (ZOCOR) 10 mg tablet Take 10 mg by mouth daily at bedtime. - Ascorbic Acid 1,000 mg tablet Take 1 tablet by mouth once daily. - omega 6-czy-jgd-fish oil 100-160-1,000 mg cap Take by mouth once daily. Problem List As Of Date 11/25/2024 Noted Resolved Sebaceous cyst [L72.3] 09/24/2014 Encounter for screening for malignant neoplasm *09/24/2014 AAA (abdominal aortic aneurysm) (HCC) [I71.40] Lung nodule [R91.1] Adenocarcinoma of prostate (HCC) [C61] 10/25/2017 Elevated prostate specific antigen (PSA) [R97.2*10/25/2017 Hypertrophy of prostate with urinary obstructio*10/25/2017 Calculus of kidney [N20.0] 10/25/2017 Erectile dysfunction [N52.9] 10/25/2017 AAA (abdominal aortic aneurysm) without rupture*06/06/2021 Nicotine use disorder, F17.2 [F17.200] 06/07/2021 S/P AAA repair [Z98.890, Z86.79] 06/10/2021 Encounter Status:[facility] ([id number]) 1955 M Date Time Provider Department 11/25/24 TRACEY SANTAMARIA During your visit today, we recorded the following information about you: Tracey Santamaria APRN.CNP 11/25/2024 1:52 PM Signed Pt will be following up in [place] per his request. Tracey Santamaria APRN.CNP Allergies As of Date: 11/25/2024 (No Known Allergies) Date Reviewed: 11/11/2024 Reviewed by: Haydee Silva, RT(R) - Fully Assessed Reason for Visit: Patient Update [1234] Prescriptions as of 11/25/2024 - lisinopril (ZESTRIL, PRINIVIL) 20 mg tablet Take 20 mg by mouth once daily. - amLODIPine (NORVASC) 5 mg tablet Take by mouth once daily. - simvastatin (ZOCOR) 10 mg tablet Take 10 mg by mouth daily at bedtime. - Ascorbic Acid 1,000 mg tablet Take 1 tablet by mouth once daily. - omega 1-kwg-xwm-fish oil 100-160-1,000 mg cap Take by mouth once daily. Problem List As Of Date 11/25/2024 Noted Resolved Sebaceous cyst [L72.3] 09/24/2014 Encounter for screening for malignant neoplasm *09/24/2014 AAA (abdominal aortic aneurysm) (HCC) [I71.40] Lung nodule [R91.1] Adenocarcinoma of prostate (HCC) [C61] 10/25/2017 Elevated prostate specific antigen (PSA) [R97.2*10/25/2017 Hypertrophy of prostate with urinary obstructio*10/25/2017 Calculus of kidney [N20.0] 10/25/2017 Erectile dysfunction [N52.9] 10/25/2017 AAA (abdominal aortic aneurysm) without rupture*06/06/2021 Nicotine use disorder, F17.2 [F17.200] 06/07/2021 S/P AAA repair [Z98.890, Z86.79] 06/10/2021 Encounter Status:Closed by TRACEY SANTAMARIA on 11/25/24 [facility] CTA ABD/PELV WO/W IVCONon CTA ABD/PELV WO/W IVCON * * *Final Repor t* * * DATE OF EXAM: Nov 13 2024 9:27AM [facility] 0467 - CTA ABD/PELV WO/W IVCON / PROCEDURE REASON: multiple diagnoses * * * * Physician Interpretation * * * * CTA abdomen and pelvis HISTORY: AAA, status post stent graft TECHNIQUE: High-resolution contrast-enhanced helical CT of the abdomen and pelvis was performed, without contrast, timed to arterial phase, and timed to venous phase (three phases). 3-D processing was performed by the physician on an independent work station, with MIP and volume-rendering techniques. Total of 150 ml of Omnipaque 350 was injected IV during the examination. The study was performed without oral contrast. The patient tolerated the injection without complications. Dose-Length Product (DLP): 1253 mGy*cm. CT Dose Reduction Employed: Automated exposure control(AEC) and iterative recon COMPARISON: CTA abdomen pelvis 08/30/2023. LIMITATIONS: None FINDINGS: Visualized thoracic aorta: Mild atherosclerotic disease. Nonaneurysmal and without significant focal stenosis Abdominal aorta: Moderate atherosclerotic disease. Juxtarenal abdominal aortic aneurysm status post stent graft from the level of the SMA with bilateral renal fenestration stents down to the common iliac arteries. There is continued decrease in the size of the infrarenal aortic aneurysm measuring 4.3 x 3.8 cm compared to a previous measurement of 4.3 x 4.4 cm on 08/30/2023. Delayed images show no endoleak. Branches of the Aorta: Patent celiac trunk and its branches. Patent SMA and its branches. RICKEY origin is occluded with reconstitution in the proximal segment from collaterals. Patent right renal stent with distal mild to moderate narrowing, unchanged from prior exams. Patent left renal artery stent. The iliac stents are patent. The internal iliac branches are patent with multifocal atherosclerotic disease. The external iliac arteries are patent. The left common femoral artery is patent. The right common femoral artery has moderate level of calcific stenosis throughout. Visualized SFA and profunda are patent. Nonvascular findings: Lung bases are clear. Emphysematous changes. No focal or lobar consolidation. No pleural effusion. No hepatomegaly. Patent hepatic veins. Patent portal veins and portal mesenteric tributaries. No intrahepatic biliary ductal dilatation. No arterially enhancing hepatic lesions. Gallbladder nondistended. The spleen, pancreas, and right adrenal gland are unremarkable. Left adrenal gland with 1.5 cm hypoattenuating lesion, please correlate with laboratory findings for adrenal adenoma. Symmetrically perfused kidneys without obstructing renal stones. Multifocal cortical thinning, left kidney more than right, may be related to prior ischemic insults. No hydronephrosis or hydroureters. Urinary bladder is unremarkable. Prostate with radiopaque beads. No dilated loops of small bowel or bowel wall thickening. Normal appendix. Colonic diverticulosis. Degenerative changes in the thoracolumbar spine. IMPRESSION: 1. Continued decrease of juxtarenal abdominal aortic aneurysm with the infrarenal aneurysmal sac measuring 4.3 x 3.8 cm, previously measuring 4.3 x 4.4 cm. No endoleak. 2. Patent right renal stent with distal mild to moderate narrowing, unchanged from prior exams. 3. 1.5 cm stable hypoattenuating left adrenal gland lesion, please correlate with laboratory findings if concerning for functioning adrenal adenoma. Radiation Protection Technician: [facility] Transcribe Date/Time: Nov 13 2024 1:06P Dictated by : JG GUADARRAMA MD This examination was interpreted and the report reviewed and electronically signed by: JG GUADARRAMA MD on Nov 13 2024 1:37PM EST [id number] Normal [facility] CTA Abdominal vessels and Pe lvis vessels WO and W contrast Juanita 11-13-2024 IMPRESSION: 1. Continued decrease of juxtarenal abdominal aortic aneurysm with the infrarenal aneurysmal sac measuring 4.3 x 3.8 cm, previously measuring 4.3 x 4.4 cm. No endoleak. 2. Patent right renal stent with distal mild to moderate narrowing, unchanged from prior exams. 3. 1.5 cm stable hypoattenuating left adrenal gland lesion, please correlate with laboratory findings if concerning for functioning adrenal adenoma. Radiation Protection Technician: [facility] Transcribe Date/Time: Nov 13 2024 1:06P Dictated by : JG GUADARRAMA MD This examination was interpreted and the report reviewed and electronically signed by: JG GUADARRAMA MD on Nov 13 2024 1:37PM EST DIVISION OF RADIOLOGY * * *Final Report* * * DATE OF EXAM: Nov 13 2024 9:27AM [place] [id number] - CTA ABD/PELV WO/W IVCON / PROCEDURE REASON: multiple diagnoses * * * * Physician Interpretation * * * * CTA abdomen and pelvis HISTORY: AAA, status post stent graft TECHNIQUE: High-resolution contrast-enhanced helical CT of the abdomen and pelvis was performed, without contrast, timed to arterial phase, and timed to venous phase (three phases). 3-D processing was performed by the physician on an independent work station, with MIP and volume-rendering techniques. Total of 150 ml of Omnipaque 350 was injected IV during the examination. The study was performed without oral contrast. The patient tolerated the injection without complications. Dose-Length Product (DLP): 1253 mGy*cm. CT Dose Reduction Employed: Automated exposure control(AEC) and iterative recon COMPARISON: CTA abdomen pelvis 08/30/2023. LIMITATIONS: None FINDINGS: Visualized thoracic aorta: Mild atherosclerotic disease. Nonaneurysmal and without significant focal stenosis Abdominal aorta: Moderate atherosclerotic disease. Juxtarenal abdominal aortic aneurysm status post stent graft from the level of the SMA with bilateral renal fenestration stents down to the common iliac arteries. There is continued decrease in the size of the infrarenal aortic aneurysm measuring 4.3 x 3.8 cm compared to a previous measurement of 4.3 x 4.4 cm on 08/30/2023. Delayed images show no endoleak. Branches of the Aorta: Patent celiac trunk and its branches. Patent SMA and its branches. RICKEY origin is occluded with reconstitution in the proximal segment from collaterals. Patent right renal stent with distal mild to moderate narrowing, unchanged from prior exams. Patent left renal artery stent. The iliac stents are patent. The internal iliac branches are patent with multifocal atherosclerotic disease. The external iliac arteries are patent. The left common femoral artery is patent. The right common femoral artery has moderate level of calcific stenosis throughout. Visualized SFA and profunda are patent. Nonvascular findings: Lung bases are clear. Emphysematous changes. No focal or lobar consolidation. No pleural effusion. No hepatomegaly. Patent hepatic veins. Patent portal veins and portal mesenteric tributaries. No intrahepatic biliary ductal dilatation. No arterially enhancing hepatic lesions. Gallbladder nondistended. The spleen, pancreas, and right adrenal gland are unremarkable. Left adrenal gland with 1.5 cm hypoattenuating lesion, please correlate with laboratory findings for adrenal adenoma. Symmetrically perfused kidneys without obstructing renal stones. Multifocal cortical thinning, left kidney more than right, may be related to prior ischemic insults. No hydronephrosis or hydroureters. Urinary bladder is unremarkable. Prostate with radiopaque beads. No dilated loops of small bowel or bowel wall thickening. Normal appendix. Colonic diverticulosis. Degenerative changes in the thoracolumbar spine. DIVISION OF RADIOLOGY Provider, [facility] - 11/13/2024 * * *Final Report* * * DATE OF EXAM: Nov 13 2024 9:27AM [facility] 0467 - CTA ABD/PELV WO/W IVCON / PROCEDURE REASON: multiple diagnoses * * * * Physician Interpretation * * * * CTA abdomen and pelvis HISTORY: AAA, status post stent graft TECHNIQUE: High-resolution contrast-enhanced helical CT of the abdomen and pelvis was performed, without contrast, timed to arterial phase, and timed to venous phase (three phases). 3-D processing was performed by the physician on an independent work station, with MIP and volume-rendering techniques. Total of 150 ml of Omnipaque 350 was injected IV during the examination. The study was performed without oral contrast. The patient tolerated the injection without complications. Dose-Length Product (DLP): 1253 mGy*cm. CT Dose Reduction Employed: Automated exposure control(AEC) and iterative recon COMPARISON: CTA abdomen pelvis 08/30/2023. LIMITATIONS: None FINDINGS: Visualized thoracic aorta: Mild atherosclerotic disease. Nonaneurysmal and without significant focal stenosis Abdominal aorta: Moderate atherosclerotic disease. Juxtarenal abdominal aortic aneurysm status post stent graft from the level of the SMA with bilateral renal fenestration stents down to the common iliac arteries. There is continued decrease in the size of the infrarenal aortic aneurysm measuring 4.3 x 3.8 cm compared to a previous measurement of 4.3 x 4.4 cm on 08/30/2023. Delayed images show no endoleak. Branches of the Aorta: Patent celiac trunk and its branches. Patent SMA and its branches. RICKEY origin is occluded with reconstitution in the proximal segment from collaterals. Patent right renal stent with distal mild to moderate narrowing, unchanged from prior exams. Patent left renal artery stent. The iliac stents are patent. The internal iliac branches are patent with multifocal atherosclerotic disease. The external iliac arteries are patent. The left common femoral artery is patent. The right common femoral artery has moderate level of calcific stenosis throughout. Visualized SFA and profunda are patent. Nonvascular findings: Lung bases are clear. Emphysematous changes. No focal or lobar consolidation. No pleural effusion. No hepatomegaly. Patent hepatic veins. Patent portal veins and portal mesenteric tributaries. No intrahepatic biliary ductal dilatation. No arterially enhancing hepatic lesions. Gallbladder nondistended. The spleen, pancreas, and right adrenal gland are unremarkable. Left adrenal gland with 1.5 cm hypoattenuating lesion, please correlate with laboratory findings for adrenal adenoma. Symmetrically perfused kidneys without obstructing renal stones. Multifocal cortical thinning, left kidney more than right, may be related to prior ischemic insults. No hydronephrosis or hydroureters. Urinary bladder is unremarkable. Prostate with radiopaque beads. No dilated loops of small bowel or bowel wall thickening. Normal appendix. Colonic diverticulosis. Degenerative changes in the thoracolumbar spine. IMPRESSION IMPRESSION: 1. Continued decrease of juxtarenal abdominal aortic aneurysm with the infrarenal aneurysmal sac measuring 4.3 x 3.8 cm, previously measuring 4.3 x 4.4 cm. No endoleak. 2. Patent right renal stent with distal mild to moderate narrowing, unchanged from prior exams. 3. 1.5 cm stable hypoattenuating left adrenal gland lesion, please correlate with laboratory findings if concerning for functioning adrenal adenoma. Radiation Protection Technician: [facility] Transcribe Date/Time: Nov 13 2024 1:06P Dictated by : JG GUADARRAMA MD This examination was interpreted and the report reviewed and electronically signed by: JG GUADARRAMA MD on Nov 13 2024 1:37PM [facility] Radiology [facility]narrative[facility] Abdominal vessels and Pe lvis vessels WO and W contrast IVOrdered By: [facility] Provider on 11-13-2024 [facility] CREATININE BLDon 10-22-2024 Creatinine [Mass/Vol] 1.21 mg/dL Normal 0.73-1.22 [facility] Comment on above: Order Comment: Speci reese Type: BLOOD SPECIMEN Ordering Facility: [facility] Address: [address] [place] [address] Performed By: #### C RET1 #### [facility] CLIA [id number] [address] [place] [address] OF [facility] Creatinine and Glomerular filtration rate.predicted panel (S/P/Bld) 64 mL/min/1.73m??? Normal >=60 [facility] Comment on above: Order Comment: Speckalin leigh Type: BLOOD SPECIMEN Ordering Facility: [facility] Address: [address] [place] [address] Result Comment: Marley mated Glomerular Filtration Rate (eGFR) is calculated using the 2020 CKD-EPI creatinine equation. This equation utilizes serum creatinine, sex, and age as parameters. The creatinine assay has traceable calibration to isotope dilution-mass spectrometry. Refer to KDIGO guidelines for clinical interpretation. In patients with unstable renal function, e.g. those with acute kidney injury, the eGFR may not accurately reflect actual GFR. Performed By: #### C RET1 #### [facility] CLIA [id number] OF [facility] [id number] 03-10-2024 [id number] HNO ID: [id number] Author: TITA ELLISON RN Service: ? Author Type: Registered Nurse Type: [id number] Filed: 03/10/2024 10:15 Note Text: The patient received a copy of Colonoscopy discharge instructions that contain information for how to contact the physician who performed the procedure and when to seek medical care. Normal [facility] Colonoscopyon 03-10-2024 Colonoscopy [facility] Gastrointestinal Endoscopy Patient Name: Arturo Santiago Procedure Date: 03/10/2024 9:29 AM Date of : 1955 Admit Type: Outpatient Age: 68 Gender: Male Note Status: Finalized Procedure: Colonoscopy Indications: Screening for colorectal malignant neoplasm Providers: Paul Borges MD Patient Profile: This is a 68 year old male. Refer to note in patient chart for documentation of history and physical. Last Colonoscopy: September 2014. Referring Physician: Paul Borges MD (Referring MD), Urban Bridges (Referring MD) Medicines: Fentanyl 100 micrograms IV, Midazolam 4 mg IV, Diphenhydramine 50 mg IV Complications: No immediate complications. Estimated blood loss: Minimal. Requesting Provider: Procedure: Pre-Anesthesia Assessment: - Prior to the procedure, a History and Physical was performed, and patient medications and allergies were reviewed. The patient's tolerance of previous anesthesia was also reviewed. The risks and benefits of the procedure and the sedation options and risks were discussed with the patient. All questions were answered, and informed consent was obtained. Prior Anticoagulants: The patient has taken no anticoagulant or antiplatelet agents. ASA Grade Assessment: III - A patient with severe systemic disease. After reviewing the risks and benefits, the patient was deemed in satisfactory condition to undergo the procedure. After I obtained informed consent, the scope was passed under direct vision. Throughout the procedure, the patient's blood pressure, pulse, and oxygen saturations were monitored continuously. The Colonoscope was introduced through the anus and advanced to 3 cm into the ileum. The colonoscopy was performed without difficulty. The patient tolerated the procedure well. The quality of the bowel preparation was good. The terminal ileum, ileocecal valve, appendiceal orifice, and rectum were photographed. Moderate Sedation: The administration of moderate sedation was initiated at 09:35 AM. Moderate (conscious) sedation was personally administered by the endoscopist. The following parameters were monitored: oxygen saturation, heart rate, blood pressure, respiratory rate, EKG, adequacy of pulmonary ventilation, and response to care. Total physician intraservice time was 21 minutes. Findings: The perianal and digital rectal examinations were normal. Many sessile polyps were found in the rectum and cecum. The polyps were diminutive in size. These polyps were removed with a jumbo cold forceps. Resection and retrieval were complete. A small polyp was found in the sigmoid colon. The polyp was sessile. The polyp was removed with a hot snare. Resection and retrieval were complete. To prevent bleeding post-intervention, one hemostatic clip was successfully placed. Clip fund controller: [email or web address]. There was no bleeding at the end of the procedure. Non-bleeding internal hemorrhoids were found during retroflexion. The hemorrhoids were mild and small. Multiple small-mouthed diverticula were found in the sigmoid colon. The terminal ileum appeared normal. The exam was otherwise without abnormality. Impression: - Many diminutive polyps in the rectum and in the cecum, removed with a jumbo cold forceps. Resected and retrieved. - One small polyp in the sigmoid colon, removed with a hot snare. Resected and retrieved. Clip was placed. Clip fund controller: [email or web address]. - Non-bleeding internal hemorrhoids. - Diverticulosis in the sigmoid colon. - The examined portion of the ileum was normal. - The examination was otherwise normal. Recommendation: - Patient has a contact number available for emergencies. The signs and symptoms of potential delayed complications were discussed with the patient. Return to normal activities tomorrow. Written discharge instructions were provided to the patient. - Resume previous diet. - Continue present medications. - Await pathology results. - Repeat colonoscopy in 5 years for surveillance. - Return to my office at appointment to be scheduled. Procedure Code(s): --- Professional --- 70577, Colonoscopy, flexible; with removal of tumor(s), polyp(s), or other lesion(s) by snare technique 52914, 59, Colonoscopy, flexible; with biopsy, single or multiple G0500, Moderate sedation services provided by the same physician or other qualified health resident care associate performing a gastrointestinal endoscopic service that sedation supports, requiring the presence of an independent trained observer to assist in the monitoring of the patient's level of consciousness and physiological status; initial 15 minutes of intra-service time; patient age 5 years or older (additional time may be reported with 89620, as appropriate) Diagnosis Code(s): --- Professional --- Z12.11, Encounter for screening for malignant neoplasm of colon (more content not included)... Normal [facility] Colonoscopy Study observatio non 03-10-2024 [facility] Gastrointestinal Endoscopy Patient Name: Arturo Santiago Procedure Date: 03/10/2024 9:29 AM Date of : 1955 Admit Type: Outpatient Age: 68 Gender: Male Note Status: Finalized Procedure: Colonoscopy Indications: Screening for colorectal malignant neoplasm Providers: Paul Borges MD Patient Profile: This is a 68 year old male. Refer to note in patient chart for documentation of history and physical. Last Colonoscopy: September 2014. Referring Physician: Paul Borges MD (Referring MD), Urban Bridges (Referring ) Medicines: Fentanyl 100 micrograms IV, Midazolam 4 mg IV, Diphenhydramine 50 mg IV Complications: No immediate complications. Estimated blood loss: Minimal. Requesting Provider: Procedure: Pre-Anesthesia Assessment: - Prior to the procedure, a History and Physical was performed, and patient medications and allergies were reviewed. The patient's tolerance of previous anesthesia was also reviewed. The risks and benefits of the procedure and the sedation options and risks were discussed with the patient. All questions were answered, and informed consent was obtained. Prior Anticoagulants: The patient has taken no anticoagulant or antiplatelet agents. ASA Grade Assessment: III - A patient with severe systemic disease. After reviewing the risks and benefits, the patient was deemed in satisfactory condition to undergo the procedure. After I obtained informed consent, the scope was passed under direct vision. Throughout the procedure, the patient's blood pressure, pulse, and oxygen saturations were monitored continuously. The Colonoscope was introduced through the anus and advanced to 3 cm into the ileum. The colonoscopy was performed without difficulty. The patient tolerated the procedure well. The quality of the bowel preparation was good. The terminal ileum, ileocecal valve, appendiceal orifice, and rectum were photographed. Moderate Sedation: The administration of moderate sedation was initiated at 09:35 AM. Moderate (conscious) sedation was personally administered by the endoscopist. The following parameters were monitored: oxygen saturation, heart rate, blood pressure, respiratory rate, EKG, adequacy of pulmonary ventilation, and response to care. Total physician intraservice time was 21 minutes. Findings: The perianal and digital rectal examinations were normal. Many sessile polyps were found in the rectum and cecum. The polyps were diminutive in size. These polyps were removed with a jumbo cold forceps. Resection and retrieval were complete. A small polyp was found in the sigmoid colon. The polyp was sessile. The polyp was removed with a hot snare. Resection and retrieval were complete. To prevent bleeding post-intervention, one hemostatic clip was successfully placed. Clip fund controller: [email or web address]. There was no bleeding at the end of the procedure. Non-bleeding internal hemorrhoids were found during retroflexion. The hemorrhoids were mild and small. Multiple small-mouthed diverticula were found in the sigmoid colon. The terminal ileum appeared normal. The exam was otherwise without abnormality. Impression: - Many diminutive polyps in the rectum and in the cecum, removed with a jumbo cold forceps. Resected and retrieved. - One small polyp in the sigmoid colon, removed with a hot snare. Resected and retrieved. Clip was placed. Clip fund controller: [email or web address]. - Non-bleeding internal hemorrhoids. - Diverticulosis in the sigmoid colon. - The examined portion of the ileum was normal. - The examination was otherwise normal. Recommendation: - Patient has a contact number available for emergencies. The signs and symptoms of potential delayed complications were discussed with the patient. Return to normal activities tomorrow. (more content not included)... [facility] Radiology Study observation (narrative) [facility] HISTORY PHYSICALon HISTORY PHYSICAL HNO ID: [id number] Author: PAUL BORGES MD Service: General Surgery Author Type: Physician Type: H&P Filed: 03/10/2024 09:34 Note Text: HISTORY AND PHYSICAL Arturo Santiago 1955 REFERRING PHYSICIAN: Urban Kelly MD CHIEF COMPLAINT: Consult (Colonoscopy consult) HPI: The patient is a 68 year old male referred for endoscopy. Arturo notes no history of colon complaints. The patient notes no history of upper GI complaints. Arturo has undergone prior endoscopy. 2013 The patient is being seen by me today at the request of Dr. Urban Kelly MD for my opinion and advice regarding Encounter for screening for malignant neoplasm of colon (primary encounter diagnosis). PAST MEDICAL HISTORY PAST MEDICAL HISTORY Diagnosis Date AAA (abdominal aortic aneurysm) (HCC) BPH with obstruction/lower urinary tract symptoms Calculus of kidney 10/25/2017 Elevated PSA Hyperlipidemia Hypertension Lung nodule Prostate cancer (HCC) Snoring PAST SURGICAL HISTORY PAST SURGICAL HISTORY Procedure Laterality Date CYSTOSCOPY,URETEROSCO PY,LITHOTRIPSY Right 12/2015 With stent CYSTOSCOPY,URETEROSCO PY,LITHOTRIPSY 06/2014 CYSTOSCOPY,URETEROSCO PY,LITHOTRIPSY 12/2018 EXC B9 LESION MRGN XCP SK TG T/A/L 0.6-1.0 CM N/A Back 1-2 years ago. FIDUCIAL MARKER PLACEMENT 01/28/2016 Into prostate HEMORRHOIDECTOMY HEMORRHOIDECTOMY 2002 IMRT BID RADT TX DELIVERY 04/2016 Prostate PAST SURGICAL HISTORY OF bursa removed from right elbow PROSTATE BIOPSY 12/23/2015 Positive for Brush 7 prostate cancer in 1 of 6 cores on left VASCULAR SURGERY PROCEDURE 06/01/2021 Fenestrated endovascular repair of abdominal aortic aneurysm. CURRENT MEDICATIONS Current Outpatient Medications Medication Sig lisinopril (ZESTRIL, PRINIVIL) 20 mg tablet Take 20 mg by mouth once daily. amLODIPine (NORVASC) 5 mg tablet Take by mouth once daily. simvastatin (ZOCOR) 10 mg tablet Take 10 mg by mouth daily at bedtime. Ascorbic Acid 1,000 mg tablet Take 1 tablet by mouth once daily. omega 6-oby-rgh-fish oil 100-160-1,000 mg cap Take by mouth once daily. No current facility-administered medications for this visit. ALLERGIES: Patient has no known allergies. PERSONAL HISTORY: SOCIAL HISTORY Social History Tobacco Use Smoking status: Every Day Packs/day: .5 Types: Cigarettes Start date: 1969 Smokeless tobacco: Never Tobacco comments: 5 cigarettes/ day Vaping Use Vaping Use: Never used Substance Use Topics Alcohol use: Yes Comment: RARE Drug use: No FAMILY HISTORY: FAMILY HISTORY FAMILY HISTORY Problem Relation Age of Onset Alcohol/Drug Mother Colon Cancer Father Allergies Sister Breast Cancer Sister Heart Attack Sister REVIEW OF SYMPTOMS: The review of systems data was entered by the nurse and reviewed by me Nursing Notes: Kianna iLndsey RN 02/08/2024 9:26 AM Signed REVIEW OF SYSTEMS: General: The patient denies fatigue, denies weight loss, denies weight gain, denies feeling hot, and denies feelings of cold. Eyes: The patient denies glaucoma, denies eye injury/surgery, wears glasses or contacts. Ear/Nose/Throat: The patient denies allergies, denies hayfever, denies ear infections, and denies bloody noses. Cardiovascular: The patient denies chest pain, denies heart disease, NOTES high blood pressure,denies cardiac stent, denies prior heart attack, denies irregular heart beat, NOTES high cholesterol, denies poor circulation, denies heart failure, other cardiac issues, denies claudication, denies cold feet, denies peripheral arterial stent. Respiratory: The patient denies tuberculosis, denies pneumonia, denies frequent cough, denies pulmonary embolism, denies shortness of breath, and denies coughing up blood. Gastrointestinal: The patient denies difficulty swallowing, denies acid reflux, denies ulcers, denies vomiting, denies jaundice/hepatitis, denies gallbladder problems, denies black or tarry stools, denies hemorrhoids, denies bleeding from rectum, NOTES diverticulitis, denies constipation, denies diarrhea, denies loss of stool control, and denies hernias. Kidney/Bladder: The patient NOTES kidney stones, denies urine infections, and denies bloody urine. Skin: The patient NOTES a history of skin cancer, denies bleeding/changing moles, and denies a history of skin rash. Neurologic: The patient denies a history of epilepsy/convulsions, denies headaches, denies head/spinal injuries, and denies stroke/TIA. Psychiatric: The patient denies psychiatric medications, denies depression, and denies voices, denies substance abuse. Endocrine: The patient denies thyroid disorders, denies diabetes, and denies hormonal problems. Hematologic: The patient denies a history of bruising, denies bleeding, and denies anemia, denies blood clots. Infections: The patient denies a history of measles and mumps, denies rheumatic fever, and denies sexually transmitt (more content not included)... [facility] NURSING PROGon 03-10-2024 NURSING PROG HNO ID: [id number] Author: TITA ELLISON RN Service: ? Author Type: Registered Nurse Type: Nursing Progress Note Filed: 03/10/2024 10:18 Note Text: Pt. arrived to phase 2 resting on left side. SR up x 2, call light in reach. Passing gas. Tita Ellison RN [facility] SURGICAL PATHOLOGYon 024 CASE REPORT [facility] Comment on above: Order Comment: Speci men Type: TISSUE SPECIMEN Ordering Facility: [facility] Address: [address] [place] [address] Result Comment: Surg [facility] Pathology Report Case: [id number] Authorizing Provider: Paul Borges MD Collected: 03/10/2024 09:44 AM Ordering Location: Ambulatory Surgery Received: 03/10/2024 12:34 PM Pathologist: Landy Lee MD Specimens: A) - Colon, Cecum, Polyp B) - Colon, Sigmoid, Polyp C) - Rectum, Polyp, Multiple rectal polyps Performed By: #### S #### [facility] IA [id number] [address] [place] [address] DIAGNOSIS COMMENT B. Multiple additional H AND E levels were examined. The degree of thermal artifact precludes further characterization. [facility] Comment on above: Order Comment: Homari reese Type: TISSUE SPECIMEN Ordering Facility: [facility] Address: [address] [place] [address] Performed By: #### S #### [facility] IA [id number] [address] [place] [address] OF [place] FINAL DIAGNOSIS [facility] Comment on above: Order Comment: Speci reese Type: TISSUE SPECIMEN Ordering Facility: [facility] Address: [address] [place] [address] Result Comment: A. C olon, cecal polyp, biopsy: - Fragments of sessile serrated polyp. B. Colon, sigmoid polyp, biopsy: - Colonic mucosa with marked thermal artifact, see comment. C. Rectum, multiple polyps, biopsy: - Hyperplastic polyp(s). Performed By: #### S #### [facility] CLIA [id number] [address] [place] [address] OF [facility] FINAL PERFORMING LAB Normal [facility] Comment on above: Order Comment: Speci men Type: TISSUE SPECIMEN Ordering Facility: [facility] Address: [address] [place] [address] Result Comment: Diag nostic interpretation performed at [facility], [address] [place] [address] CLIA# [id number] Coremaker Helper: Silvano Yip M.D. Performed By: #### S #### [facility] CLIA [id number] [address] [place] [address] OF [facility] GROSS DESCRIPTION Normal [facility] Comment on above: Order Comment: Speci men Type: TISSUE SPECIMEN Ordering Facility: [facility] Address: [address] [place] [address] Result Comment: A. C olon, Cecum, Polyp Received in formalin are two pieces of reddy, soft tissue aggregating to 0.8 x 0.2 x 0.2 cm. Totally submitted in one cassette. B. Colon, Sigmoid, Polyp Received in formalin is a segment of reddy-brown polypoid tissue measuring 0.5 x 0.3 x 0.3 cm. No stalk is noted. The line of resection is noted. The specimen is bisected and totally submitted in one cassette. C. Rectum, Polyp Received in formalin are multiple pieces of reddy, soft tissue aggregating to 1.8 x 0.3 x 0.2 cm. Totally submitted in one cassette. SS March 11, 2024 12:34 AM Gross examination performed at [facility], [address] [place] [address] Performed By: #### S #### [facility] CLIA [id number] [address] [place] [address] STATES OF [place] CNOVon 02-08-2024 CNOV Office Visit (GENSWS ) QUINTIN SANTIAGOBARAK Corbin ([id number]) 1955 M Date Time Provider Department 02/08/24 9:15 AM PAUL BORGES During your visit today, we recorded the following information about you: Temperature Pulse Blood pressure Weight 97.6 degrees 79/minute 140/70 76.6 kg Height 1.803 m Kianna Lindsey RN 02/08/2024 9:26 AM Signed REVIEW OF SYSTEMS: General: The patient denies fatigue, denies weight loss, denies weight gain, denies feeling hot, and denies feelings of cold. Eyes: The patient denies glaucoma, denies eye injury/surgery, wears glasses or contacts. Ear/Nose/Throat: The patient denies allergies, denies hayfever, denies ear infections, and denies bloody noses. Cardiovascular: The patient denies chest pain, denies heart disease, NOTES high blood pressure,denies cardiac stent, denies prior heart attack, denies irregular heart beat, NOTES high cholesterol, denies poor circulation, denies heart failure, other cardiac issues, denies claudication, denies cold feet, denies peripheral arterial stent. Respiratory: The patient denies tuberculosis, denies pneumonia, denies frequent cough, denies pulmonary embolism, denies shortness of breath, and denies coughing up blood. Gastrointestinal: The patient denies difficulty swallowing, denies acid reflux, denies ulcers, denies vomiting, denies jaundice/hepatitis, denies gallbladder problems, denies black or tarry stools, denies hemorrhoids, denies bleeding from rectum, NOTES diverticulitis, denies constipation, denies diarrhea, denies loss of stool control, and denies hernias. Kidney/Bladder: The patient NOTES kidney stones, denies urine infections, and denies bloody urine. Skin: The patient NOTES a history of skin cancer, denies bleeding/changing moles, and denies a history of skin rash. Neurologic: The patient denies a history of epilepsy/convulsions, denies headaches, denies head/spinal injuries, and denies stroke/TIA. Psychiatric: The patient denies psychiatric medications, denies depression, and denies voices, denies substance abuse. Endocrine: The patient denies thyroid disorders, denies diabetes, and denies hormonal problems. Hematologic: The patient denies a history of bruising, denies bleeding, and denies anemia, denies blood clots. Infections: The patient denies a history of measles and mumps, denies rheumatic fever, and denies sexually transmitted diseases. Musculoskeletal: The patient denies back pain/injury, denies back problems, denies sciatica, denies knee/foot trouble, denies arthritis, or denies gout. When was patient's last Mammogram screening? N/A Last Colonoscopy: 10/06/2014 FARHEEN Greco Daniel P, MD 02/08/2024 9:36 AM Signed HISTORY AND PHYSICAL Arturo Santiago 1955 REFERRING PHYSICIAN: Urban Kelly MD CHIEF COMPLAINT: Consult (Colonoscopy consult) HPI: The patient is a 68 year old male referred for endoscopy. Arturo notes no history of colon complaints. The patient notes no history of upper GI complaints. Artuor has undergone prior endoscopy. 2013 The patient is being seen by me today at the request of Dr. Urban Kelly MD for my opinion and advice regarding Encounter for screening for malignant neoplasm of colon (primary encounter diagnosis). PAST MEDICAL HISTORY Diagnosis Date AAA (abdominal aortic aneurysm) (HCC) BPH with obstruction/lower urinary tract symptoms Calculus of kidney 10/25/2017 Elevated PSA Hyperlipidemia Hypertension Lung nodule Prostate cancer (HCC) Snoring PAST SURGICAL HISTORY Procedure Laterality Date CYSTOSCOPY,URETEROSCO PY,LITHOTRIPSY Right 12/2015 With stent CYSTOSCOPY,URETEROSCO PY,LITHOTRIPSY 06/2014 CYSTOSCOPY,URETEROSCO PY,LITHOTRIPSY 12/2018 EXC B9 LESION MRGN XCP SK TG T/A/L 0.6-1.0 CM N/A Back 1-2 years ago. FIDUCIAL MARKER PLACEMENT 01/28/2016 Into prostate HEMORRHOIDECTOMY HEMORRHOIDECTOMY 2002 IMRT BID RADT TX DELIVERY 04/2016 Prostate PAST SURGICAL HISTORY OF bursa removed from right elbow PROSTATE BIOPSY 12/23/2015 Positive for Jeramy 7 prostate cancer in 1 of 6 cores on left VASCULAR SURGERY PROCEDURE 06/01/2021 Fenestrated endovascular repair of abdominal aortic aneurysm. Current Outpatient Medications Medication Sig lisinopril (ZESTRIL, PRINIVIL) 20 mg tablet Take 20 mg by mouth once daily. amLODIPine (NORVASC) 5 mg tablet Take by mouth once daily. simvastatin (ZOCOR) 10 mg tablet Take 10 mg by mouth daily at bedtime. Ascorbic Acid 1,000 mg tablet Take 1 tablet by mouth once daily. omega 2-qva-ypn-fish oil 100-160-1,000 mg cap Take by mouth once daily. No current facility-administered medications for this visit. ALLERGIES: Patient has no known allergies. PERSONAL HISTORY: Social History Tobacco Use Smoking status: Every Day Packs/day: .5 Types: Cigarettes Start date: 1 (more content not included)... Normal [facility] 02-08-20[facility] ARTURO SANTIAGO ([id number]) 1955 M Date Time Provider Department 02/08/24 PAUL [facility]ORGES [employer] [employer] During your visit today, we recorded the following information about you: Viridiana Earl 02/08/2024 9:53 AM Signed 03/10/2024 [facility] Allergies As of Date: 02/08/2024 (No Known Allergies) Date Reviewed: 02/08/2024 Reviewed by: Kianna Lindsey, RN - Fully Assessed Reason for Visit: 03/10/2024 [facility] [Other] Prescriptions as of 09/23/2024 - lisinopril (ZESTRIL, PRINIVIL) 20 mg tablet Take 20 mg by mouth once daily. - amLODIPine (NORVASC) 5 mg tablet Take by mouth once daily. - simvastatin (ZOCOR) 10 mg tablet Take 10 mg by mouth daily at bedtime. - Ascorbic Acid 1,000 mg tablet Take 1 tablet by mouth once daily. - omega 1-ghm-cir-fish oil 100-160-1,000 mg cap Take by mouth once daily. Problem List As Of Date 02/08/2024 Noted Resolved Sebaceous cyst [L72.3] 09/24/2014 Special screening for malignant neoplasms, colo*09/24/2014 AAA (abdominal aortic aneurysm) (HCC) [I71.40] Lung nodule [R91.1] Adenocarcinoma of prostate (HCC) [C61] 10/25/2017 Elevated prostate specific antigen (PSA) [R97.2*10/25/2017 Hypertrophy of prostate with urinary obstructio*10/25/2017 Calculus of kidney [N20.0] 10/25/2017 Erectile dysfunction [N52.9] 10/25/2017 AAA (abdominal aortic aneurysm) without rupture*06/06/2021 Nicotine use disorder, F17.2 [F17.200] 06/07/2021 S/P AAA repair [Z98.890, Z86.79] 06/10/2021 Encounter Status:Closed by DANIS LOZA on 09/23/24 [facility] CTA ABD/PEL WO/W IVCONon [facility] Basophil percentageOrdered B y: Urban Kelly on 06-13-2023 Chloride [Moles/Vol] 114 mmol/L 98-107 [facility] Cholesterol [Mass/Vol] 152 mg/dL <200 [facility] Comment on above: <200 mg/dL Desirable 200-240 mg/dL Borderline >240 mg/dL High Risk Glucose [Mass/Vol] 104 mg/dL 74-106 [facility] Comment on above: Fasting Glucose resu lt from 100 to 125 mg/dL suggests IMPAIRED HOMEOSTASIS per A.D.A. criteria. Potassium [Moles/Vol] 4.6 mmol/L 3.5-5.1 [facility] Sodium [Moles/Vol] 142 mmol/L 136-145 [facility] Triglyceride [Mass/Vol] 134 mg/dL <199 [facility] Comment on above: The drugs N-Acetylcy steine and Metamizole may falsely depress this assay.Serum Triglycerides Reference Interval Normal <150 mg/dL Borderline high 150 - 199 mg/dL High 200 - 499 mg/dL Very High > or = 500 mg/dL Laboratory - Chemistry and C hemistry - challengeOrdered By: Urban Kelly on 06-13-2023 CO2 [Moles/Vol] 23.0 mmol/L 21.0-32.0 [facility] Urea nitrogen/Creatinine [Mass ratio] 17.8 mg/mg 10-20 [facility] No Panel InformationOrdered By: Urban Kelly on 06-13-2023 Estimated GFR (MDRD) Amer 71 mL/min >60 [facility] Comment on above: GFR Calc Estimated GFR (MDRD) Non-Af Amer 59 mL/min >60 [facility] Comment on above: Non- GFR Calc Prostate Specific Antigen Screen 0.41 ng/mL 0.00-4.00 [facility] Comment on above: This test was perfor med using the TPSA assay method for rocket staff chemistry system. Values obtained with differentassay methods cannot be used interchangably.When changing PSA assays in the course of monitoring apatient, additional sequential testing should be carriedout to confirm baseline values. Serum or plasma calcium lola urement (mass/volume)Ordered By: Urban Kelly on 06-13-2023 Calcium [Mass/Vol] 8.9 mg/dL 8.5-10.1 [facility] Serum or plasma cholesterol in HDL measurement (mass/volume)Ordered By: Urban Kelly on 06-13-2023 Cholesterol in HDL [Mass/Vol] 34 mg/dL >40 [facility] Comment on above: The drugs N-Acetylcy steine and Metamizole may falsely depress this assay. Reference Range HDL <40 mg/dL Low HDL Cholesterol HDL >or= 60 mg/dL High HDL Cholesterol Serum or plasma cholesterol in VLDL measurement (mass/volume)Ordered By: Urban Kelly on 06-13-2023 Cholesterol in VLDL [Mass/Vol] 27 mg/dL 5-40 [facility] Serum or plasma creatinine m easurement (mass/volume)Ordered By: Urban Kelly on 06-13-2023 Creatinine [Mass/Vol] 1.29 mg/dL 0.70-1.30 [facility] Comment on above: The validity of the calculated GFR & GFRAA in patients over 70 years has not been determined. Clinical correlation is essential. Serum or plasma low density lipoprotein (LDL) cholesterol measurement (mass/volume)Ordered By: Urban Kelly on 06-13-2023 Cholesterol in LDL [Mass/Vol] 91 mg/dL 0-130 [facility] Serum or plasma urea nitroge n measurement (mass/volume)Ordered By: Urban Kelly on 06-13-2023 Urea nitrogen [Mass/Vol] 23 mg/dL 7-18 [facility] Thin prep Papanicolaou smear with manual screeningOrdered By: Urban Kelly on 06-13-2023 Thin prep Papanicolaou smear with manual screening 5 5-15 [facility] Basophil percentageon 2021 Chloride [Moles/Vol] 108 mmol/L 98-107 [facility] Work Phone: Cholesterol [Mass/Vol] 144 mg/dL <200 [facility] Work Phone: Comment on above: <200 mg/dL Desirable 200-240 mg/dL Borderline >240 mg/dL High Risk Glucose [Mass/Vol] 109 mg/dL 74-106 [facility] Work Phone: Comment on above: Fasting Glucose resu lt from 100 to 125 mg/dL suggests IMPAIRED HOMEOSTASIS per A.D.A. criteria. Potassium [Moles/Vol] 4.2 mmol/L 3.5-5.1 [facility] Work Phone: Sodium [Moles/Vol] 137 mmol/L 136-145 [facility] Work Phone: Triglyceride [Mass/Vol] 162 mg/dL <199 [facility] Work Phone: Comment on above: The drugs N-Acetylcy steine and Metamizole may falsely depress this assay.Serum Triglycerides Reference Interval Normal <150 mg/dL Borderline high 150 - 199 mg/dL High 200 - 499 mg/dL Very High > or = 500 mg/dL Laboratory - Chemistry and C hemistry - challengeon 07-12-2022 CO2 [Moles/Vol] 24.0 mmol/L 21.0-32.0 [facility] Work Phone: Urea nitrogen/Creatinine [Mass ratio] 18.0 mg/mg 10-20 [facility] Work Phone: No Panel Informationon 07-12 Estimated GFR (MDRD) Amer 72 mL/min >60 [facility] Work Phone: Comment on above: GFR Calc Estimated GFR (MDRD) Non-Af Amer 59 mL/min >60 [facility] Work Phone: Comment on above: Non- GFR Calc Serum or plasma calcium lola urement (mass/volume)on 07-12-2022 Calcium [Mass/Vol] 9.0 mg/dL 8.5-10.1 [facility] Work Phone: Serum or plasma cholesterol in HDL measurement (mass/volume)on 07-12-2022 Cholesterol in HDL [Mass/Vol] 31 mg/dL >40 [facility] Work Phone: Comment on above: The drugs N-Acetylcy steine and Metamizole may falsely depress this assay. Reference Range HDL <40 mg/dL Low HDL Cholesterol HDL >or= 60 mg/dL High HDL Cholesterol Serum or plasma cholesterol in VLDL measurement (mass/volume)on 07-12-2022 Cholesterol in VLDL [Mass/Vol] 32 mg/dL 5-40 [facility] Work Phone: Serum or plasma creatinine m easurement (mass/volume)on 07-12-2022 Creatinine [Mass/Vol] 1.28 mg/dL 0.70-1.30 [facility] Work Phone: Comment on above: The validity of the calculated GFR & GFRAA in patients over 70 years has not been determined. Clinical correlation is essential. Serum or plasma low density lipoprotein (LDL) cholesterol measurement (mass/volume)on 07-12-2022 Cholesterol in LDL [Mass/Vol] 81 mg/dL 0-130 [facility] Work Phone: Serum or plasma urea nitroge n measurement (mass/volume)on 07-12-2022 Urea nitrogen [Mass/Vol] 23 mg/dL 7-18 [facility] Work Phone: Thin prep Papanicolaou smear with manual screeningon 07-12-2022 Thin prep Papanicolaou smear with manual screening 5 5-15 [facility] Work Phone: Basophil percentageon 2021 Bilirubin [Mass/Vol] 0.70 mg/dL 0.20-1.00 [facility] Work Phone: Comment on above: For patients on eltr ombopag therapy, use of Dimension [place] TBIL is not recommended. Chloride [Moles/Vol] 107 mmol/L 98-107 [facility] Work Phone: Glucose [Mass/Vol] 101 mg/dL 74-106 [facility] Work Phone: Comment on above: Fasting Glucose resu lt from 100 to 125 mg/dL suggests IMPAIRED HOMEOSTASIS per A.D.A. criteria. Potassium [Moles/Vol] 4.5 mmol/L 3.5-5.1 [facility] Work Phone: Protein [Mass/Vol] 7.7 g/dL 6.4-8.2 [facility] Work Phone: Sodium [Moles/Vol] 140 mmol/L 136-145 [facility] Work Phone: Laboratory - Chemistry and C hemistry - challengeon 01-16-2022 ALP [Catalytic activity/Vol] 93 U/L 45-117 [facility] Work Phone: ALT [Catalytic activity/Vol] 21 U/L 16-61 [facility] Work Phone: CO2 [Moles/Vol] 30.0 mmol/L 21.0-32.0 [facility] Work Phone: Globulin (S) [Mass/Vol] 4.1 g/dL 2.2-4.2 [facility] Work Phone: Urea nitrogen/Creatinine [Mass ratio] 17.1 mg/mg 10-20 [facility] Work Phone: [phone] No Panel Informationon 01-16 Estimated GFR (MDRD) Amer 71 mL/min >60 [facility] Work Phone: Comment on above: GFR Calc Estimated GFR (MDRD) Non-Af Amer 59 mL/min >60 [facility] Work Phone: Comment on above: Non- GFR Calc Serum or plasma albumin lola urement (mass/volume)on 01-16-2022 Albumin [Mass/Vol] 3.6 g/dL 3.2-5.0 [facility] Work Phone: Serum or plasma albumin/glob ulin mass ratioon 01-16-2022 Albumin/Globulin [Mass ratio] 0.9 {ratio} 0.9-2.4 [facility] Work Phone: Serum or plasma calcium lola urement (mass/volume)on 01-16-2022 Calcium [Mass/Vol] 9.0 mg/dL 8.5-10.1 [facility] Work Phone: Serum or plasma creatinine m easurement (mass/volume)on 01-16-2022 Creatinine [Mass/Vol] 1.29 mg/dL 0.70-1.30 [facility] Work Phone: Comment on above: The validity of the calculated GFR & GFRAA in patients over 70 years has not been determined. Clinical correlation is essential. Serum or plasma urea nitroge n measurement (mass/volume)on 01-16-2022 Urea nitrogen [Mass/Vol] 22 mg/dL 7-18 [facility] Work Phone: Thin prep Papanicolaou smear with manual screeningon 01-16-2022 Thin prep Papanicolaou smear with manual screening 12 U/L 15-37 [facility] Work Phone: Thin prep Papanicolaou smear with manual screening 3 5-15 [facility] Work Phone: Vital Signs Date Time Vital Sign Value [facility] 01-20-2025 09:13-0500 Body mass index (BMI) [Ratio] 21.62 kg/m2 Sudha Gina DO Work Phone: [facility] 01-20-2025 09:13-0500 Body weight 70.31 kg Sudha Ross DO Work Phone: [facility] 01-20-2025 09:13-0500 Diastolic blood pressure 75 mm[Hg] Sudha Ross DO Work Phone: [facility] 01-20-2025 09:13-0500 Heart rate 75 /min Sudha Ross DO Work Phone: [facility] 01-20-2025 09:13-0500 SaO2% (BldA) [Mass fraction] 98 % Sudha Ross DO Work Phone: [facility] 01-20-2025 09:13-0500 Systolic blood pressure 148 mm[Hg] Sudha Ross DO Work Phone: [facility] 03-10-2024 10:20-0400 Diastolic blood pressure 73 mm[Hg] Paul Borges MD Work Phone: [facility] 03-10-2024 10:20-0400 Respiratory rate 16 /min Paul Borges MD Work Phone: [facility] 03-10-2024 10:20-0400 SaO2% (BldA) [Mass fraction] 98 % Paul Borges MD Work Phone: [facility] 03-10-2024 10:20-0400 Systolic blood pressure 108 mm[Hg] Paul Borges MD Work Phone: [facility] 03-10-2024 10:03-0400 Heart rate 62 /min Paul Borges MD Work Phone: [facility] 03-10-2024 09:17-0400 Body mass index (BMI) [Ratio] 23.55 kg/m2 Paul Borges MD Work Phone: [facility] 03-10-2024 09:17-0400 Body temperature 97.5 [degF] Paul Borges MD Work Phone: [facility] 03-10-2024 09:17-0400 Body weight 76.6 kg Paul Borges MD Work Phone: [facility] 02-08-2024 09:0400 Body height 180.3 cm Paul Borges MD Work Phone: [facility] 02-08-2024 [id number] Body temperature 97.59 [degF] Paul Borges MD Work Phone: [facility] 02-08-2024 [id number] Body weight 76.57 kg Paul Borges MD Work Phone: [facility] 02-08-2024 [id number] Diastolic blood pressure 70 mm[Hg] Paul Borges MD Work Phone: [facility] 02-08-2024 [id number] Heart rate 79 /min Paul Borges MD Work Phone: [facility] 02-08-2024 [id number] SaO2% (BldA) [Mass fraction] 100 % Paul Borges MD Work Phone: [facility] 02-08-2024 [id number] Systolic blood pressure 140 mm[Hg] Paul Borges MD Work Phone: [facility] 10-25-2023 11:21-0500 Body height 180.3 cm Marisabel Gregg MD Work Phone: [facility] 10-25-2023 11:21-0500 Body weight 74.39 kg Marisabel Gregg MD Work Phone: [facility] 10-25-2023 11:21-0500 Diastolic blood pressure 70 mm[Hg] Marisabel Gregg MD Work Phone: [facility] 10-25-2023 11:21-0500 Heart rate 78 /min Marisabel Gregg MD Work Phone: [facility] 10-25-2023 11:21-0500 Respiratory rate 16 /min Marisabel Gregg MD Work Phone: [facility] 10-25-2023 11:21-0500 Systolic blood pressure 126 mm[Hg] Marisabel Gergg MD Work Phone: [facility] 07-24-2023 08:47-0400 Body height 180.[address] Urban Kelly Work Phone: [facility] 07-24-2023 08:47-0400 Body weight 72.[address] Urban Kelly Work Phone: [facility] 07-24-2023 08:47-0400 Heart rate 67 /min Dr. Urban Kelly Work Phone: [facility] 07-24-2023 08:47-0400 SaO2% (BldA) [Mass fraction] 98 % Dr. Urban Kelly Work Phone: [facility] 07-10-2023 05:49-0400 Body height 180.[address] Urban Kelly Work Phone: [facility] 07-10-2023 05:49-0400 Body mass index (BMI) [Ratio] 22 kg/m2 Dr. Urban Kelly Work Phone: [facility] 07-10-2023 05:49-0400 Body temperature 97.3 [degF] Dr. Urban Kelly Work Phone: [facility] 07-10-2023 05:49-0400 Body weight 71.[address] Urban Kelly Work Phone: [facility] 07-10-2023 05:49-0400 Diastolic blood pressure 79 mm[Hg] Dr. Urban Kelly Work Phone: [facility] 07-10-2023 05:49-0400 Heart rate 62 /min Dr. Urban Kelly Work Phone: [facility] 07-10-2023 05:49-0400 Respiratory rate 18 /min Dr. Urban Kelly Work Phone: [facility] 07-10-2023 05:49-0400 SaO2% (BldA) [Mass fraction] 97 % Dr. Urban Kelyl Work Phone: [facility] 07-10-2023 05:49-0400 Systolic blood pressure 144 mm[Hg] Dr. Urban Kelly Work Phone: [facility] 08-22-2022 14:25-0400 Body height 180.3 cm Tracey Santamaria DIRECTOR WORKFOR[employer] MANA[employer]EMENT[employer] Work Phone: [facility] 08-22-2022 14:25-0400 Body weight 74.84 kg Tracey Brownews DIRECTOR WORKFOR[employer] MANAGEMENT[employer] Work Phone: [facility] 08-22-2022 14:25-0400 Diastolic blood pressure 70 mm[Hg] Tracey Brownews DIRECTOR WORKFOR[employer] MANAGEMENT[employer] Work Phone: [facility] 08-22-2022 14:25-0400 Heart rate 80 /min Tracey Brownews DIRECTOR WORKFOR[employer] MANAGEMENT[employer] Work Phone: [facility] 08-22-2022 14:25-0400 Respiratory rate 16 /min Tracey Brownews DIRECTOR WORKFOR[employer] MANA[employer]EMENT[employer] Work Phone: [facility] 08-22-2022 14:25-0400 Systolic blood pressure 136 mm[Hg] Tracey Santamaria DIRECTOR WORKFOR[employer] MANAGEMENT[employer] Work Phone: [facility] 01-26-2022 13:18-0500 Body height 180.[address] Urban Kelly Work Phone: [facility] Work Phone: 01-26-2022 13:18-0500 Body mass index (BMI) [Ratio] 23 kg/m2 Dr. Urban Kelly Work Phone: [facility] Work Phone: 01-26-2022 13:18-0500 Body weight 74.[address] Urban Kelly Work Phone: [facility] Work Phone: 01-26-2022 13:18-0500 Diastolic blood pressure 86 mm[Hg] Dr. Urban Kelly Work Phone: [facility] Work Phone: 01-26-2022 13:18-0500 Respiratory rate 18 /min Dr. Urban Kelly Work Phone: [facility] Work Phone: 01-26-2022 13:18-0500 Systolic blood pressure 166 mm[Hg] Dr. 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 Urban Kelly MD Work Phone: [facility] Work Phone: Start: 01-16-2025 End: 01-16-[address] Urban Kelly MD -[facility] Work Phone: Start: 01-16-2025 End: 01-16-2025 ambulatory Urban Kelly Facility:[facility] Start: 12-12-2024 End: 12-12-[address] [facility] Work [facility] Start: 12-12-2024 End: 12-12-2024 ambulatory Urban Kelly Facility:[facility] Start: 11-25-2024 End: 11-25-2024 Telephone encounter Keith Weiss MD Work Phone: [facility] Comment on above: Appointment (Appoint ment) Patient Update Start: 11-13-2024 End: 11-13-2024 ambulatory URBAN KELLY Facility:[facility] Start: 11-13-2024 End: 11-13-2024 Subsequent hospital visit by physician [facility] (I-[facility]) Work Phone: Cat Scan Comment on above: History of AAA (abdo mark aortic aneurysm) repair [Z98.890] Start: 10-22-2024 End: 10-22-2024 ambulatory URBAN KELLY Facility:[facility] Start: 10-20-2024 End: 10-20-2024 Orders Only Tracey Santamaria [employer] Work Phone: [facility] Comment on above: History of AAA (abdo mark aortic aneurysm) repair (Primary Dx); 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) Start: 03-10-2024 End: 03-10-2024 ambulatory URBAN KELLY Facility:[facility] Start: 03-10-2024 End: 03-10-2024 Subsequent hospital visit by physician Paul Borges MD Work Phone: Ambulatory Surgery Comment on above: Encounter for screen ing for malignant neoplasm of colon [Z12.11] Start: 02-08-2024 End: 09-23-2024 Telephone encounter Paul Borges MD Work Phone: General Surgery Comment on above: 03/10/2024 [facility] Start: 02-08-2024 End: 02-08-2024 ambulatory URBAN KELLY Facility:[facility] Start: 02-08-2024 End: 02-08-2024 Patient encounter procedure Paul Borges MD Work Phone: General Surgery Comment on above: Encounter for screen ing for malignant neoplasm of colon (Primary Dx) Start: 10-25-2023 End: 10-25-2023 Patient encounter procedure Marisabel Gregg MD Work Phone: [facility] Comment on above: 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) Start: 10-10-2023 End: 10-10-[address] Urban Kelly Work Phone: [facility] Work Phone: Start: 10-10-2023 End: 10-10-[address] Urban Kelly Work Phone: [facility]-Cat Scan, [facility] Work Phone: Start: 08-30-2023 End: 08-30-2023 Subsequent hospital visit by physician [facility] (I-Stat) Work Phone: Cat Scan Comment on above: History of AAA (abdo mark aortic aneurysm) repair [Z98.890] Start: 07-27-2023 Telephone encounter Tracey luciaws DIRECTOR WORKFOR[employer]NAGEMENT[employer] Work Phone: [facility] Comment on above: Appointment (Appoint ment) Start: 07-25-2023 Orders Only Tracey velez DIRECTOR WORKFOR[employer] MANAGEMENT[employer] Work Phone: [facility] Comment on above: History of AAA (abdo mark aortic aneurysm) repair (Primary Dx); 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) Start: 07-25-2023 Non-patient / Non-visit Dr. Tom Kelly Work Phone: [facility] Start: 07-24-2023 End: 07-24-[address] Urban Kelly Work Phone: [facility]-Pulmonary Services/Neurology Work Phone: Start: 07-20-2023 Non-patient / Non-visit Dr. Tom Kelly Work Phone: [facility] Start: 07-19-2023 End: 07-19-[address] Urban Kelly Work Phone: [facility] Work Phone: Start: 07-19-2023 End: 07-19-[address] [facility] Work [facility] Start: 07-10-2023 End: 07-10-[address] Urban Kelly Work Phone: [facility] [place] Work Phone: Start: 07-07-2023 End: 07-07-[address] Urban Kelly Work Phone: [facility] Work Phone: Start: 07-07-2023 End: 07-07-[address] Urban Kelly Work Phone: [facility]-Cat [facility] Work Phone: Start: 06-13-2023 End: 06-13-[address] Urban Kelly Work Phone: [facility] Start: 09-07-2022 Telephone encounter Tracey peñaloza DIRECTOR WORKFOR[employer] MANAGEMENT[employer] Work Phone: [facility] Comment on above: Results Start: 08-22-2022 End: 08-22-2022 Patient encounter procedure Tracey Santamaria DIRECTOR WORKFOR[employer]NAGEMENT[employer] Work Phone: [facility] Comment on above: Juxtarenal abdominal aortic aneurysm (AAA) without rupture (Primary Dx); History of AAA (abdominal aortic aneurysm) repair Start: 07-12-2022 End: 07-12-2022 ambulatory [facility] Work Phone: Start: 07-12-2022 End: 07-12-2022 Patient encounter procedure [facility] Start: 05-03-2022 End: 05-03-[address] Urban Kelly Work Phone[facility] Start: 01-26-2022 End: 01-26-[address] Urban Kelly Work Phone: [facility] Start: 01-17-2022 End: 01-17-[address] Urban Kelly Work Phone: [facility]-Ultrasound, [facility] Start: 01-16-2022 End: 01-16-[address] Urabn Kelly Work Phone: [facility] Start: 08-29-2019 Patient encounter procedure KT HILL Facility:[facility] Start: 03-14-2019 End: 03-18-2019 Patient encounter procedure KT HILL Facility:[facility] Start: 11-01-2018 Patient encounter procedure TIBURCIO WARNER Facility:[facility] Start: 04-30-2018 Patient encounter procedure GABBY PARNELL Facility:[facility] Start: 04-16-2018 Patient encounter procedure LUIS FERNANDO CHAUDHARY Facility:[facility] Start: 04-11-2018 Patient encounter procedure GABBY PARNELL Facility:[facility] Procedures Date Procedure Procedure Detail Performing Clinician Start: 01-16-2025 MRI of joint of lowe r extremity Dr. Urban Kelly MD Work Phone: Start: 12-12-2024 Plain X-ray of shoulder Dr. Urban Kelly MD Work Phone: Start: 11-13-2024 Ct angio abd&plvis c ntrst mtrl w/wo cntrst img Tracey Santamaria DIRECTOR [employer]NAGEMENT[employer] Work Phone: Start: 03-10-2024 Colonoscopy flx dx w /collj spec when pfrmd Paul Borges MD Work Phone: Start: 03-10-2024 Colonoscopy Paul hudson MD Work Phone: Start: 10-10-2023 CT of chest without contrast Dr. Urban Kelly Work Phone: Start: 08-30-2023 Ct angio abd&plvis c ntrst mtrl w/wo cntrst img Tracey Santamaria DIRECTOR [employer]NA[employer]EMENT[employer] Work Phone: Start: 07-07-[address] Urban perry Work Phone: Start: 06-13-[address] Wily Kelly Work Phone: Start: 05-03-2022 Plain X-ray of shoulder Dr. Urban Kelly Work Phone: Start: 01-17-[address] Urban Kelly Work Phone: Start: 10-06-2014 Colonoscopy Tracey Wilson tthews DIRECTOR [employer] Work Phone: Plan of Treatment Date Care Activity Detail Author Start: 03-10-2034 Screening for malign ant neoplasm of colon [facility] Start: 02-02-2033 Urine microalbumin profile DTaP,Tdap,Td Vaccine (2 - Td or Tdap) [facility] Start: 03-10-2029 Screening for malign ant neoplasm of colon [facility] Start: 2028 RSV Vaccine (1 - 1-d ose 75+ series) RSV Vaccine (1 - 1-dose 75+ series) [facility] Start: 01-19-2026 End: 01-19-2026 Patient encounter procedure Vasculary Surgery Comment on above: x: Juxtarenal abdomi nal aortic aneurysm (AAA) without rupture (HCC) [I71.42] Dx: Juxtarenal abdom inal aortic aneurysm (AAA) without rupture (HCC) [I71.42] follow up Start: 01-31-2025 DIABETES SCREEN DIABETES SCREEN [facility] Start: 01-31-2025 Diabetes Screening Diabetes Screenin g [facility] Start: 01-20-2025 End: 01-20-2025 Patient encounter procedure 01/20/2025 9:15 AM EST Office Visit Vascular Surgery [address] [place] [address] Sudha Ross D, DO [address] [place] [address] f/u ct [facility] Comment on above: f/u ct Start: 11-19-2024 Advance Directive Discussion Advance Directive Discussion [facility] Start: 10-30-2024 Pneumococcal Vaccine : 50+ (3 of 3 - PCV20 or PCV21) Pneumococcal Vaccine: 50+ (3 of 3 - PCV20 or PCV21) [facility] Start: 10-20-2024 End: 01-19-2025 CREATININE BLD CREATININE BLD Lab Routine History of AAA (abdominal aortic aneurysm) repair 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) Expected: 10/20/2024, Expires: 01/19/2025 [facility] Comment on above: Expected: 10/20/2024 , Expires: 01/19/2025 Start: 10-06-2024 Colonoscopy COLONOSCOPY [facility] Start: 10-06-2024 COLORECTAL CANCER SCREENING COLORECTAL CANCER SCREENING [facility] Start: 10-06-2024 Screening for malign ant neoplasm of colon [facility] Start: 07-20-2024 Covid-19 Vaccine () Covid-19 Vaccine () [facility] Start: 07-20-2024 Influenza vaccination Influenza Vacc ine (#1) [facility] Start: 11-19-2023 Advance Directive Discussion Advance Directive Discussion [facility] Start: 11-19-2023 Behavioral Health Screening Behavioral Health Screening [facility] Start: 11-19-2023 Depression Assessment Depression Ass essment [facility] Start: 07-25-2023 End: 09-24-2023 CREATININE BLD CREATININE BLD Lab Routine History of AAA (abdominal aortic aneurysm) repair 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) Expected: 07/25/2023, Expires: 09/24/2023 [facility] Work Phone: Comment on above: Expected: 07/25/2023 , Expires: 09/24/2023 Start: 07-20-2023 Covid-19 Vaccine () Covid-19 Vaccine () [facility] Start: 07-20-2023 Influenza vaccination [facility] Start: 11-19-2022 ADVANCE DIRECTIVE DISCUSSION ADVANCE DIRECTIVE DISCUSSION [facility] Start: 11-19-2022 DEPRESSION ASSESSMENT DEPRESSION ASS ESSMENT [facility] Start: 10-26-2022 PROSTATE CANCER SCREENING DISCUSSION PROSTATE CANCER SCREENING DISCUSSION [facility] Start: 08-22-2022 End: 10-22-2022 CREATININE BLD CREATININE BLD Lab Routine Juxtarenal abdominal aortic aneurysm (AAA) without rupture History of AAA (abdominal aortic aneurysm) repair Expected: 08/22/2022, Expires: 10/22/2022 [facility] Work Phone: Comment on above: Expected: 08/22/2022 , Expires: 10/22/2022 Start: 07-20-2022 Influenza vaccination INFLUENZA (#1) [facility] Start: 12-28-2021 COVID-19 VACCINE (5 - Booster for Moderna series) COVID-19 VACCINE (5 - Booster for Moderna series) [facility] Start: 12-28-2021 COVID-19 VACCINE (5 - Moderna series) COVID-19 VACCINE (5 - Moderna series) [facility] Start: 11-19-2021 ADVANCE DIRECTIVE DISCUSSION ADVANCE DIRECTIVE DISCUSSION [facility] Start: 11-19-2021 DEPRESSION ASSESSMENT DEPRESSION ASS ESSMENT [facility] Start: 09-01-2021 Pneumococcal Vaccine : 65+ (3 - PPSV23 or PCV20) Pneumococcal Vaccine: 65+ (3 - PPSV23 or PCV20) [facility] Start: 09-01-2021 Pneumococcal Vaccine : 65+ (3 of 3 - PPSV23 or PCV20) Pneumococcal Vaccine: 65+ (3 of 3 - PPSV23 or PCV20) [facility] Start: 11-02-2018 Screening for malign ant neoplasm of lung Lung Cancer Screening [facility] Start: 2013 RSV Vaccine (1 - 1-d ose 60+ series) RSV Vaccine (1 - 1-dose 60+ series) [facility] Start: 2003 SHINGRIX VACCINE (1 of 2) SHINGRIX VACCINE (1 of 2) [facility] Start: 1998 COLOGUARD (FIT-DNA) COLOGUARD (FIT-D NA) [facility] Start: [address] COLONOGRAPHY [facility] Start: 1998 FECAL OCCULT BLOOD FECAL OCCULT BLOO D [facility] Start: 1998 Screening for malign ant neoplasm of colon [facility] Start: 1998 SIGMOIDOSCOPY SIGMOIDOSCOPY [facility] Start: 1988 Lipid 1996 panel - S ayesha or Plasma Lipid Screening [facility] Start: 1988 Lipid panel Lipid Screening [facility] Start: 1988 LIPID SCREEN LIPID SCREEN [facility] Start: 1972 Urine microalbumin profile DTAP,TDAP,TD (1 - Tdap) [facility] Start: 1971 Anxiety Screening Anxiety Screening [facility] Start: 1971 Depression Screening Depression Scre ening [facility] Start: 1971 HEPATITIS C SCREENING HEPATITIS C [facility] Start: 1971 Hepatitis C screening Hepatitis C [facility] Start: 1959 PNEUMOCOCCAL: 65+ (1 - PCV) PNEUMOCOCCAL: 65+ (1 - PCV) [facility] Start: 1953 ABDOMINAL AORTIC ANEURYSM SCREENING ABDOMINAL AORTIC ANEURYSM SCREENING [facility] Start: 1953 Abdominal aortic aneurysm screening Abdominal Aortic Aneurysm Screening [facility] End: 09-21-2023 Ct angio abd&plvis cntrst mtrl w/wo cntrst img CTA ABD/PEL WO/W IVCON Radiology Routine Juxtarenal abdominal aortic aneurysm (AAA) without rupture History of AAA (abdominal aortic aneurysm) repair 1 Occurrences starting 08/22/2022 until 09/21/2023 [facility] Work Phone: Comment on above: 1 Occurrences starti ng 08/22/2022 until 09/21/2023 End: 08-23-2024 Ct angio abd&plvis cntrst mtrl w/wo cntrst img CTA ABD/PEL WO/W IVCON Radiology Routine History of AAA (abdominal aortic aneurysm) repair 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) 1 Occurrences starting 07/25/2023 until 08/23/2024 [facility] Work Phone: Comment on above: 1 Occurrences starti ng 07/25/2023 until 08/23/2024 CT Chest WO contrast [facility] End: 11-19-2025 CTA Abdominal vessels and Pelvis vessels WO and W contrast IV CTA ABD/PEL WO/W IVCON Radiology Routine History of AAA (abdominal aortic aneurysm) repair 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) 1 Occurrences starting 10/20/2024 until 11/19/2025 [facility] Work Phone: Comment on above: 1 Occurrences starti ng 10/20/2024 until 11/19/2025 Exercise tolerance test [facility] Measurement of respiratory function [facility] End: 02-07-2025 Screening colonoscopy COLONOSCOPY SCREENING Endoscopy Routine Encounter for screening for malignant neoplasm of colon 1 Occurrences starting 02/08/2024 until 02/07/2025 [facility] Work Phone: Comment on above: 1 Occurrences starti ng 02/08/2024 until 02/07/2025 SURGICAL PATHOLOGY [facility] Work Phone: Comment on above: Release Upon Christopher gould for 1 Occurrences starting 03/10/2024, 1 completed End: 01-20-2026 US Abdominal Aorta US ABD AORTA COMPLETE [facility] Vascular Lab Routine 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) 1 Occurrences starting 01/20/2025 until 01/20/2026 [facility] Work Phone: Comment on above: 1 Occurrences starti ng 01/20/2025 until 01/20/2026 End: 01-20-2026 US Renal artery US RENAL ARTERY ASMITA [facility] Vascular Lab Routine 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) 1 Occurrences starting 01/20/2025 until 01/20/2026 [facility] Comment on above: 1 Occurrences starti ng 01/20/2025 until 01/20/2026 End: 02-19-2026 XR Abdomen GE 3 Views AP and Oblique and [facility] XR ABDOMEN 3V KUB W/OBLIQUES Radiology Routine 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) 1 Occurrences starting 01/20/2025 until 02/19/2026 [facility] Comment on above: 1 Occurrences starti ng 01/20/2025 until 02/19/2026 [facility] Immunizations Immunization Date Immunization Notes Care Provider [facility] 10-09-2023 influenza virus vacc ine, unspecified formulation Paul Borges MD Work Phone: [facility] 09-15-2022 influenza virus vacc ine, unspecified formulation Ct (I-Stat) Work Phone: [facility] Payers Date Payer Category Payer Medicare (Managed Care) [employer] [id number] 2024 Self-pay [id number] 2024 Unknown [id number] 2020 Medicare A[employer] MEDICARE A ETNA MEDICARE HMO [id number] 2020-Present [phone] [address] [place] [address] HMO [id number] 2020 Private Health Insurance [facility] [id number] 2016 Unknown [id number] 1953 Unknown [id number] 1953 Unknown [id number] 278 1953 Unknown [id number] 278 1953 Unknown [id number]. 278 1953 Unknown [id number]. 278 1953 Unknown [id number]. 278 Unknown [id number] Unknown [id number] Unknown [facility] [id number] Unknown [id number] 462 Unknown [id number]. 462 Unknown [id number] 462 Social History Date Type Detail Facility Start: 01-26-2022 End: 07-10-2023 Tobacco smoking status [facility] Unknown if ever smoked [facility] [facility] Start: 06-10-2016 Non-smoker [facility] Start: 1955 Sex Assigned At Male [facility] Start: 08-22-2022 End: 07-10-2023 Tobacco smoking status COIS Smokes tobacco daily [facility] Start: [birth year]-19-1969 History of tobacco use Cigarette Smo ker [facility] Start: 08-22-2022 End: 10-25-2023 Cigarettes smoked current (pack per day) - Reported 0.5 [facility] Start: 08-22-2022 End: 01-20-2025 Tobacco use and exposure Smokeless tobacco non-user [facility] Start: 08-22-2022 End: 01-20-2025 Alcohol intake Current drinker of alcohol (finding) [facility] Start: 07-11-2017 History SDOH Alcohol Comment RARE [facility] Start: 08-22-2022 Tobacco Comment 5 cigarettes/ day Cl [facility] Start: 08-12-2022 End: 08-22-2022 Exposure to SARS-CoV-2 (event) Not sure [facility] Start: 08-14-2022 End: 08-24-2022 Exposure to SARS-CoV-2 (event) Unable to assess [facility] Start: 08-22-2022 End: 10-25-2023 Tobacco use panel [facility] National Score (1-10 0), lower number is lower risk 52 [facility] Start: 02-27-2021 Gender identity Identifies as male gender (finding) [facility] Start: 02-27-2021 Sexual orientation Heterosexual (fin ding) [facility] Start: 01-27-2025 Sex Male (finding) [facility] Medical Equipment Procedure Code Equipment Code Equipment Original Text Equipment Identifier Dates Graft Zenith 12f r 76mm 28mm Endovascular Visceral Fenestration Distal - [id number] Start: 06-06-2021 Endograft Fenest rated Proximal Body 34mm X 122mm [id number] Start: 06-06-2021 Stent Icast 6mm .035in Ptfe 22mm 80cm Tracheobronchial Covered Guidewire - [id number] Start: 06-06-2021 Zenith Spiral Z 14f 13mm X 56mm Aaa Iliac Leg Grft [id number] Start: 06-06-2021 Zenith Spiral Z 14f 13mm X 74mm Aaa Iliac Leg Grft [id number] Start: 06-06-2021 Stent Icast 6mm .035in Ptfe 22mm 80cm Tracheobronchial Covered Guidewire - [id number] Start: 06-06-2021 Endograft Fenest rated Prox FDA Start: 06-06-2021 Zenith Endovascu lar Visceral fen,distal FDA Start: 06-06-2021 Zenith Spiral Z AAA graft FDA Start: 06-06-2021 Zenith Spiral Z AAA graft FDA Start: 06-06-2021 Goals Date Patient Goal Desired Activity /State Personal health goal Functional Status Date Assessment Result Facility 06-10-2021 Are you deaf, or do you have serious difficulty hearing No 06/10/2021 1:09 PM EDT Barak Almeida Ae, RN No [facility] 06-10-2021 Are you blind, or do you have serious difficulty seeing, even when wearing glasses No 06/10/2021 1:09 PM EDT Barak Almeida Ae RN No [facility] 06-10-2021 Do you have serious difficulty walking or climbing stairs No 06/10/2021 1:09 PM EDT Barak Almeida Ae RN No [facility] 06-10-2021 Do you have difficul ty dressing or bathing No 06/10/2021 1:09 PM EDT Barak Almeida Ae RN No [facility] 06-10-2021 Because of a physica l, mental, or emotional condition, do you have difficulty doing errands alone such as visiting a physician's office or shopping No 06/10/2021 1:09 PM EDT Barak Almeida Ae RN No [facility] Mental Status Date Assessment Result Facility 06-10-2021 Because of a physica l, mental, or emotional condition, do you have serious difficulty concentrating, remembering, or making decisions No 06/10/2021 1:09 PM EDT Barak Almeida Ae, RN No [facility] Clinical Notes 08-22-2022 to 01-20-2025 Sudha Ross DO - 01/20/2025 9:48 AM ESTTelephone Encounter - Tracey Santamaria APRN.[facility] - 11/25/2024 1:51 PM ESTTelephone Encounter - Tracey Santamaria APRN.CNP - 11/25/2024 1:51 PM EST Note Date & Type Note Facility 01-20-2025 Note HNO ID: [id number] Author: SUDHA ROSS DO Service: ? Author Type: Physician Type: Progress Notes Filed: 01/22/2025 16:10 Note Text: [facility]ASCULAR SURGERY OUTPATIENT VISIT DATE January 20, 2025 OUTPATIENT VISIT TYPE ESTABLISHED SERVICE DATE: 01/20/2025 SERVICE TIME: 9:48 AM PRIMARY CARE PHYSICIAN: Urban Kelly MD HISTORY OF PRESENT ILLNESS: Mr. Santiago is a 69 year old male who presents today for a vascular surgery follow-up visit on history FEVAR in [address] Weiss. He denies any complaints PAST MEDICAL HISTORY Diagnosis Date AAA (abdominal aortic aneurysm) (HCC) BPH with obstruction/lower urinary tract symptoms Calculus of kidney 10/25/2017 Elevated PSA Hyperlipidemia Hypertension Lung nodule Prostate cancer (HCC) Snoring PAST SURGICAL HISTORY Procedure Laterality Date CYSTOSCOPY,URETEROSCOPY,LITHOT RIPSY Right 12/2015 With stent CYSTOSCOPY,URETEROSCOPY,LITHOT RIPSY 06/2014 CYSTOSCOPY,URETEROSCOPY,LITHOT RIPSY 12/2018 EXC B9 LESION MRGN XCP SK TG T/A/L 0.6-1.0 CM N/A Back 1-2 years ago. FIDUCIAL MARKER PLACEMENT 01/28/2016 Into prostate HEMORRHOIDECTOMY HEMORRHOIDECTOMY 2002 IMRT BID RADT TX DELIVERY 04/2016 Prostate PAST SURGICAL HISTORY OF bursa removed from right elbow PROSTATE BIOPSY 12/23/2015 Positive for Brush 7 prostate cancer in 1 of 6 cores on left VASCULAR SURGERY PROCEDURE 06/01/2021 Fenestrated endovascular repair of abdominal aortic aneurysm. SOCIAL HISTORY Social History Tobacco Use Smoking status: Every Day Current packs/day: 0.50 Average packs/day: 0.5 packs/day for 57.2 years (28.6 ttl pk-yrs) Types: Cigarettes Start date: 1967 Smokeless tobacco: Never Tobacco comments: 5 cigarettes/ day Vaping Use Vaping status: Never Used Substance Use Topics Alcohol use: Yes Comment: RARE Drug use: No MEDICATIONS: lisinopril (ZESTRIL, PRINIVIL) 20 mg tablet Take 20 mg by mouth once daily. amLODIPine (NORVASC) 5 mg tablet Take by mouth once daily. simvastatin (ZOCOR) 10 mg tablet Take 10 mg by mouth daily at bedtime. Ascorbic Acid 1,000 mg tablet Take 1 tablet by mouth once daily. omega 0-qzb-etc-fish oil 100-160-1,000 mg cap Take by mouth once daily. ALLERGIES: ALLERGIES No Known Allergies PHYSICAL EXAM: BP 148/75 (BP Site: Left Arm, BP Position: Sitting, BP Cuff Size: Regular Adult) Pulse 75 Wt 70.3 kg (155 lb) SpO2 98% BMI 21.62 kg/m? General: Alert and oriented Integumentary: Normal color, no rash, no lesions. HEENT: EOM, pupils equal, round and reactive. Cardiovascular: Pulse regular. Lungs: No chest deformities or chest wall tenderness. Abdomen: non-distended Extremities: No deformity, no edema or tenderness, no joint swelling or clubbing. Neurological: Normal cognition and motor skills. Vascular: Posterior Tibial Right: Normal - Left: Normal Diagnostic tests reviewed for today's visit: Most recent labs Most recent imaging CTA- no evidence of endoleak noted Continued decrease of juxtarenal abdominal aortic aneurysm with the infrarenal aneurysmal sac measuring 4.3 x 3.8 cm, previously measuring 4.3 x 4.4 cm. No endoleak. Patent right renal stent with distal mild to moderate narrowing, unchanged from prior exams. IMPRESSION: Mr. Santiago is a 69 year old male with AAA . PLAN and RECOMMENDATIONS: Reviewed findings with Mr. Santiago Recommend follow up in one year with aortic and renal duplex, KUB Continue current blood pressure and cholesterol control Patient with unintentional weight loss this past year- CT noted adrenal nodule 1.5 cm that has been stable. Will forward results to PCP SIGNATURE: Sudha Ross DO PATIENT NAME: Arturo Santiago DATE: January 20, 2025 TIME: 9:48 AM [facility] 01-20-2025 History of Presen t illness Narrative Images from the original note were not included. [facility]ASCULAR SURGERY OUTPATIENT VISIT DATE January 20, 2025 OUTPATIENT VISIT TYPE ESTABLISHED SERVICE DATE: 01/20/2025 SERVICE TIME: 9:48 AM PRIMARY CARE PHYSICIAN: Urban Kelly MD HISTORY OF PRESENT ILLNESS: Mr. Santiago is a 69 year old male who presents today for a vascular surgery follow-up visit on history FEVAR [place] [address] Weiss. He denies any complaints PAST MEDICAL HISTORY Diagnosis Date AAA (abdominal aortic aneurysm) (HCC) BPH with obstruction/lower urinary tract symptoms Calculus of kidney 10/25/2017 Elevated PSA Hyperlipidemia Hypertension Lung nodule Prostate cancer (HCC) Snoring PAST SURGICAL HISTORY Procedure Laterality Date CYSTOSCOPY,URETEROSCOPY,LITHOT RIPSY Right 12/2015 With stent CYSTOSCOPY,URETEROSCOPY,LITHOT RIPSY 06/2014 CYSTOSCOPY,URETEROSCOPY,LITHOT RIPSY 12/2018 EXC B9 LESION MRGN XCP SK TG T/A/L 0.6-1.0 CM N/A Back 1-2 years ago. FIDUCIAL MARKER PLACEMENT 01/28/2016 Into prostate HEMORRHOIDECTOMY HEMORRHOIDECTOMY 2002 IMRT BID RADT TX DELIVERY 04/2016 Prostate PAST SURGICAL HISTORY OF bursa removed from right elbow PROSTATE BIOPSY 12/23/2015 Positive for Brush 7 prostate cancer in 1 of 6 cores on left VASCULAR SURGERY PROCEDURE 06/01/2021 Fenestrated endovascular repair of abdominal aortic aneurysm. SOCIAL HISTORY Social History Tobacco Use Smoking status: Every Day Current packs/day: 0.50 Average packs/day: 0.5 packs/day for 57.2 years (28.6 ttl pk-yrs) Types: Cigarettes Start date: 1969 Smokeless tobacco: Never Tobacco comments: 5 cigarettes/ day Vaping Use Vaping status: Never Used Substance Use Topics Alcohol use: Yes Comment: RARE Drug use: No MEDICATIONS: lisinopril (ZESTRIL, PRINIVIL) 20 mg tablet Take 20 mg by mouth once daily. amLODIPine (NORVASC) 5 mg tablet Take by mouth once daily. simvastatin (ZOCOR) 10 mg tablet Take 10 mg by mouth daily at bedtime. Ascorbic Acid 1,000 mg tablet Take 1 tablet by mouth once daily. omega 6-czj-gwo-fish oil 100-160-1,000 mg cap Take by mouth once daily. ALLERGIES: ALLERGIES No Known Allergies PHYSICAL EXAM: BP 148/75 (BP Site: Left Arm, BP Position: Sitting, BP Cuff Size: Regular Adult) Pulse 75 Wt 70.3 kg (155 lb) SpO2 98% BMI 21.62 kg/m General: Alert and oriented Integumentary: Normal color, no rash, no lesions. HEENT: EOM, pupils equal, round and reactive. Cardiovascular: Pulse regular. Lungs: No chest deformities or chest wall tenderness. Abdomen: non-distended Extremities: No deformity, no edema or tenderness, no joint swelling or clubbing. Neurological: Normal cognition and motor skills. Vascular: Posterior Tibial Right: Normal - Left: Normal Diagnostic tests reviewed for today's visit: Most recent labs Most recent imaging CTA- no evidence of endoleak noted Continued decrease of juxtarenal abdominal aortic aneurysm with the infrarenal aneurysmal sac measuring 4.3 x 3.8 cm, previously measuring 4.3 x 4.4 cm. No endoleak. Patent right renal stent with distal mild to moderate narrowing, unchanged from prior exams. IMPRESSION: Mr. Santiago is a 69 year old male with AAA . PLAN and RECOMMENDATIONS: Reviewed findings with Mr. Santiago Recommend follow up in one year with aortic and renal duplex, KUB Continue current blood pressure and cholesterol control Patient with unintentional weight loss this past year- CT noted adrenal nodule 1.5 cm that has been stable. Will forward results to PCP SIGNATURE: Sudha Ross DO PATIENT NAME: Arturo Santiago DATE: January 20, 2025 TIME: 9:48 AM documented in this encounter [facility] 11-25-2024 Telephone encount er Note Pt will be following up in [place] per his request. Tracey Santamaria APRN.[facility] Work Phone: 11-25-2024 Miscellaneous Notes Formattin g of this note might be different from the original. Pt will be following up in [place] per his request. Tracey Santamaria APRN.[facility] documented in this encounter [facility] 11-25-2024 Telephone encount er Note Spoke to Pt and he will follow up with Dr. Gregg @ [place] History of AAA (abdominal aortic aneurysm) repair; Juxtarenal abdominal aortic aneurysm (AAA) without rupture *CTA A/P 11/13/24* [facility] 11-25-2024 Miscellaneous Notes Formattin g of this note might be different from the original. Spoke to Pt and he will follow up with Dr. Gregg @ [place] History of AAA (abdominal aortic aneurysm) repair; Juxtarenal abdominal aortic aneurysm (AAA) without rupture *CTA A/P 11/13/24* documented in this encounter [facility] 11-13-2024 History of Presen t illness Narrative Radiology Service Progress Note DATE OF SERVICE: November 13, 2024 TIME: 12:33 PM PATIENT IDENTITY VERIFICATION COMPLETED USING TWO (2) STANDARD IDENTIFIERS: Name and Date of confirmed by patient verbally. FALL SCREENING: Has the patient had 2 falls in the last year or 1 fall with injury or currently using an Ambulatory Assistive Device (Walker, Cane, Wheelchair, Crutches, etc.)? No PATIENT GENDER DATA: Male PATIENT RELEVANT IMPLANT DATA REVIEWED: Yes PATIENT PRESENTS WITH AN IMPLANTABLE OR ATTACHED EXHIBIT TECHNICIAN: No ALLERGIES: Reviewed and unchanged CONTRAST ALLERGY: NO. EXAM: CT -CONTRAST INDUCED NEPHROPATHY RISK FACTORS: Patient age > 60 years CREATININE: Creatinine Date Value Ref Range Status 10/22/2024 1.21 0.73 - 1.22 mg/dL Final 08/29/2023 1.27 (H) 0.73 - 1.22 mg/dL Final 08/29/2022 1.21 0.73 - 1.22 mg/dL Final Estimated Glomerular Filtration Rate Date Value Ref Range Status 10/22/2024 64 >=60 mL/min/1.73m Final Comment: Estimated Glomerular Filtration Rate (eGFR) is calculated using the 2020 CKD-EPI creatinine equation. This equation utilizes serum creatinine, sex, and age as parameters. The creatinine assay has traceable calibration to isotope dilution-mass spectrometry. Refer to KDIGO guidelines for clinical interpretation. In patients with unstable renal function, e.g. those with acute kidney injury, the eGFR may not accurately reflect actual GFR. eGFR- Date Value Ref Range Status 07/11/2021 >60 Final P.O.C.T. RESULTS: POC done: Yes, See Lab Tab November 13, 2024 TREATMENT: N/A PERIPHERAL IV DATA: Ambulatory: A peripheral IV was started in the Right antecubital site with a Angio cath: 18 gauge. RADIOLOGY DEPARTMENT: CT; Exam(s) Completed: CTA Abdomen Pelvis SIGNATURE: ROLE Romano) PATIENT NAME: Arturo Santiago DATE: November 13, 2024 TIME: 12:33 PM documented in this encounter [facility] 11-13-2024 Note HNO ID: [id number] Author: HAYDEE SILVA RT (R) Service: ? Author Type: Choke Setter Type: Progress Notes Filed: 11/13/2024 12:33 Note Text: Radiology Service Progress Note DATE OF SERVICE: November 13, 2024 TIME: 12:33 PM PATIENT IDENTITY VERIFICATION COMPLETED USING TWO (2) STANDARD IDENTIFIERS: Name and Date of confirmed by patient verbally. FALL SCREENING: Has the patient had 2 falls in the last year or 1 fall with injury or currently using an Ambulatory Assistive Device (Walker, Cane, Wheelchair, Crutches, etc.)? No PATIENT GENDER DATA: Male PATIENT RELEVANT IMPLANT DATA REVIEWED: Yes PATIENT PRESENTS WITH AN IMPLANTABLE OR ATTACHED EXHIBIT TECHNICIAN: No ALLERGIES: Reviewed and unchanged CONTRAST ALLERGY: NO. EXAM: CT -CONTRAST INDUCED NEPHROPATHY RISK FACTORS: Patient age > 60 years CREATININE: Creatinine Date Value Ref Range Status 10/22/2024 1.21 0.73 - 1.22 mg/dL Final 08/29/2023 1.27 (H) 0.73 - 1.22 mg/dL Final 08/29/2022 1.21 0.73 - 1.22 mg/dL Final Estimated Glomerular Filtration Rate Date Value Ref Range Status 10/22/2024 64 >=60 mL/min/1.73m? Final Comment: Estimated Glomerular Filtration Rate (eGFR) is calculated using the 2020 CKD-EPI creatinine equation. This equation utilizes serum creatinine, sex, and age as parameters. The creatinine assay has traceable calibration to isotope dilution-mass spectrometry. Refer to KDIGO guidelines for clinical interpretation. In patients with unstable renal function, e.g. those with acute kidney injury, the eGFR may not accurately reflect actual GFR. eGFR- Date Value Ref Range Status 07/11/2021 >60 Final P.O.C.T. RESULTS: POC done: Yes, See Lab Tab November 13, 2024 TREATMENT: N/A PERIPHERAL IV DATA: Ambulatory: A peripheral IV was started in the Right antecubital site with a Angio cath: 18 gauge. RADIOLOGY DEPARTMENT: CT; Exam(s) Completed: CTA Abdomen Pelvis SIGNATURE: RT Rosalina(R) PATIENT NAME: Arturo Santiago DATE: November 13, 2024 TIME: 12:33 PM [facility] 03-10-2024 Note Formatting of this n ote might be different from the original. The patient received a copy of Colonoscopy discharge instructions that contain information for how to contact the physician who performed the procedure and when to seek medical care. [facility] 03-10-2024 Miscellaneous Notes Formattin g of this note might be different from the original. The patient received a copy of Colonoscopy discharge instructions that contain information for how to contact the physician who performed the procedure and when to seek medical care. documented in this encounter [facility] 03-10-2024 Nurse Note Pt. arrived to phase 2 resting on left side. SR up x 2, call light in reach. Passing gas. Tita Ellison, RN [facility] 03-10-2024 Nurse Note Pt. arrived to phase 2 resting on left side. SR up x 2, call light in reach. Passing gas. Tita Ellison RN documented in this encounter [facility] 03-10-2024 History and physical note Images from the original note were not included. HISTORY AND PHYSICAL Arturo Santiago 1955 REFERRING PHYSICIAN: Urban Kelly MD CHIEF COMPLAINT: Consult (Colonoscopy consult) HPI: The patient is a 68 year old male referred for endoscopy. Arturo notes no history of colon complaints. The patient notes no history of upper GI complaints. Arturo has undergone prior endoscopy. 2013 The patient is being seen by me today at the request of Dr. Urban Kelly MD for my opinion and advice regarding Encounter for screening for malignant neoplasm of colon (primary encounter diagnosis). PAST MEDICAL HISTORY PAST MEDICAL HISTORY Diagnosis Date AAA (abdominal aortic aneurysm) (HCC) BPH with obstruction/lower urinary tract symptoms Calculus of kidney 10/25/2017 Elevated PSA Hyperlipidemia Hypertension Lung nodule Prostate cancer (HCC) Snoring PAST SURGICAL HISTORY PAST SURGICAL HISTORY Procedure Laterality Date CYSTOSCOPY,URETEROSCOPY,LITHOT RIPSY Right 12/2015 With stent CYSTOSCOPY,URETEROSCOPY,LITHOT RIPSY 06/2014 CYSTOSCOPY,URETEROSCOPY,LITHOT RIPSY 12/2018 EXC B9 LESION MRGN XCP SK TG T/A/L 0.6-1.0 CM N/A Back 1-2 years ago. FIDUCIAL MARKER PLACEMENT 01/28/2016 Into prostate HEMORRHOIDECTOMY HEMORRHOIDECTOMY 2002 IMRT BID RADT TX DELIVERY 04/2016 Prostate PAST SURGICAL HISTORY OF bursa removed from right elbow PROSTATE BIOPSY 12/23/2015 Positive for Jeramy 7 prostate cancer in 1 of 6 cores on left VASCULAR SURGERY PROCEDURE 06/01/2021 Fenestrated endovascular repair of abdominal aortic aneurysm. CURRENT MEDICATIONS Current Outpatient Medications Medication Sig lisinopril (ZESTRIL, PRINIVIL) 20 mg tablet Take 20 mg by mouth once daily. amLODIPine (NORVASC) 5 mg tablet Take by mouth once daily. simvastatin (ZOCOR) 10 mg tablet Take 10 mg by mouth daily at bedtime. Ascorbic Acid 1,000 mg tablet Take 1 tablet by mouth once daily. omega 8-pln-epo-fish oil 100-160-1,000 mg cap Take by mouth once daily. No current facility-administered medications for this visit. ALLERGIES: Patient has no known allergies. PERSONAL HISTORY: SOCIAL HISTORY Social History Tobacco Use Smoking status: Every Day Packs/day: .5 Types: Cigarettes Start date: 1969 Smokeless tobacco: Never Tobacco comments: 5 cigarettes/ day Vaping Use Vaping Use: Never used Substance Use Topics Alcohol use: Yes Comment: RARE Drug use: No FAMILY HISTORY: FAMILY HISTORY FAMILY HISTORY Problem Relation Age of Onset Alcohol/Drug Mother Colon Cancer Father Allergies Sister Breast Cancer Sister Heart Attack Sister REVIEW OF SYMPTOMS: The review of systems data was entered by the nurse and reviewed by wv Nursing Notes: Kianna Lindsey RN 02/08/2024 9:26 AM Signed REVIEW OF SYSTEMS: General: The patient denies fatigue, denies weight loss, denies weight gain, denies feeling hot, and denies feelings of cold. Eyes: The patient denies glaucoma, denies eye injury/surgery, wears glasses or contacts. Ear/Nose/Throat: The patient denies allergies, denies hayfever, denies ear infections, and denies bloody noses. Cardiovascular: The patient denies chest pain, denies heart disease, NOTES high blood pressure,denies cardiac stent, denies prior heart attack, denies irregular heart beat, NOTES high cholesterol, denies poor circulation, denies heart failure, other cardiac issues, denies claudication, denies cold feet, denies peripheral arterial stent. Respiratory: The patient denies tuberculosis, denies pneumonia, denies frequent cough, denies pulmonary embolism, denies shortness of breath, and denies coughing up blood. Gastrointestinal: The patient denies difficulty swallowing, denies acid reflux, denies ulcers, denies vomiting, denies jaundice/hepatitis, denies gallbladder problems, denies black or tarry stools, denies hemorrhoids, denies bleeding from rectum, NOTES diverticulitis, denies constipation, denies diarrhea, denies loss of stool control, and denies hernias. Kidney/Bladder: The patient NOTES kidney stones, denies urine infections, and denies bloody urine. Skin: The patient NOTES a history of skin cancer, denies bleeding/changing moles, and denies a history of skin rash. Neurologic: The patient denies a history of epilepsy/convulsions, denies headaches, denies head/spinal injuries, and denies stroke/TIA. Psychiatric: The patient denies psychiatric medications, denies depression, and denies voices, denies substance abuse. Endocrine: The patient denies thyroid disorders, denies diabetes, and denies hormonal problems. Hematologic: The patient denies a history of bruising, denies bleeding, and denies anemia, denies blood clots. Infections: The patient denies a history of measles and mumps, denies rheumatic fever, and denies sexually transmitted diseases. Musculoskeletal: The patient denies back pain/injury, denies back problems, denies sciatica, denies knee/foot trouble, denies arthritis, or denies gout. When was patient's last Mammogram screening? N/A Last Colonoscopy: 10/06/2014 Kianna Lindsey RN PHYSICAL EXAMINATION: General: The patient is 68 year old male, well nourished, well hydrated in no acute distress. The patient is oriented to time, place, and person. VITALS: Blood pressure 140/70, pulse 79, temperature 36.4 C (97.6 F), height 180.3 cm (5' 11"), weight 76.6 kg (168 lb 12.8 oz), SpO2 100%. Body mass index is 23.54 kg/m . HEENT: Normal cephalic, ataumatic, pupils are equally round, sclera are anicteric, mucous membranes are moist, oropharynx is clear. Neck has no masses, asymmetry or lymphadenopathy. Thyroid is unremarkable. Respiratory: Clear to auscultation and percussion. Normal respiratory excursion and pattern. Cardiac: Examination is regular rate and rhythm. Abdominal exam: Soft, nontender, with no palpable masses. No hepatosplenomegaly. No palpable hernias. Rectal exam: exam deferred Extremities: no clubbing, cyanosis or edema. No adenopathy. Other: LABORATORY VALUES: As Noted RADIOLOGIC STUDIES: As Noted Assessment IMPRESSION: Encounter for screening for malignant neoplasm of colon (primary encounter diagnosis) PLAN: I plan to perform lower endoscopy. We discussed the risks and benefits of the planned endoscopy. I have informed the patient that complications can occur including failure to complete the endoscopy and perforation. The patient had the opportunity to ask questions concerning the planned endoscopy. My staff has also explained the procedure to the patient in understandable terms and has given the patient printed material concerning the procedure. The patient freely consents to surgery. I plan to use Miralax bowel preperation for endoscopy Diagnoses: (Z12.11) Encounter for screening for malignant neoplasm of colon (primary encounter diagnosis) A letter was sent to Dr. Urban Kelly MD indicating the above finding for this patient. Return to Clinic: The patient is instructed to follow-up with me 1 week post operatively. Paul Borges III, MD UPDATED HISTORY AND PHYSICAL EXAMINATION SERVICE DATE: 03/10/2024 SERVICE TIME: 9:34 AM PHYSICAL EXAM MUST BE COMPLETED ON ADMISSION The History and Physical (completed in the past 30 days) has been reviewed and the patient has been examined. The contents accurately reflect the patient's condition with the following additions or revisions since the H&P was completed. Examination indicates no changes. This H&P can be found in the attached. SIGNATURE: Paul Borges III, MD PATIENT NAME: Arturo Santiago DATE: March 10, 2024 TIME: 9:34 AM [facility] 03-10-2024 History and physical note Images from the original note were not included. HISTORY AND PHYSICAL Arturo Santiago 1955 REFERRING PHYSICIAN: Urban Kelly MD CHIEF COMPLAINT: Consult (Colonoscopy consult) HPI: The patient is a 68 year old male referred for endoscopy. Arturo notes no history of colon complaints. The patient notes no history of upper GI complaints. Arturo has undergone prior endoscopy. 2013 The patient is being seen by me today at the request of Dr. Urban Kelly MD for my opinion and advice regarding Encounter for screening for malignant neoplasm of colon (primary encounter diagnosis). PAST MEDICAL HISTORY PAST MEDICAL HISTORY Diagnosis Date AAA (abdominal aortic aneurysm) (HCC) BPH with obstruction/lower urinary tract symptoms Calculus of kidney 10/25/2017 Elevated PSA Hyperlipidemia Hypertension Lung nodule Prostate cancer (HCC) Snoring PAST SURGICAL HISTORY PAST SURGICAL HISTORY Procedure Laterality Date CYSTOSCOPY,URETEROSCOPY,LITHOT RIPSY Right 12/2015 With stent CYSTOSCOPY,URETEROSCOPY,LITHOT RIPSY 06/2014 CYSTOSCOPY,URETEROSCOPY,LITHOT RIPSY 12/2018 EXC B9 LESION MRGN XCP SK TG T/A/L 0.6-1.0 CM N/A Back 1-2 years ago. FIDUCIAL MARKER PLACEMENT 01/28/2016 Into prostate HEMORRHOIDECTOMY HEMORRHOIDECTOMY 2002 IMRT BID RADT TX DELIVERY 04/2016 Prostate PAST SURGICAL HISTORY OF bursa removed from right elbow PROSTATE BIOPSY 12/23/2015 Positive for Brush 7 prostate cancer in 1 of 6 cores on left VASCULAR SURGERY PROCEDURE 06/01/2021 Fenestrated endovascular repair of abdominal aortic aneurysm. CURRENT MEDICATIONS Current Outpatient Medications Medication Sig lisinopril (ZESTRIL, PRINIVIL) 20 mg tablet Take 20 mg by mouth once daily. amLODIPine (NORVASC) 5 mg tablet Take by mouth once daily. simvastatin (ZOCOR) 10 mg tablet Take 10 mg by mouth daily at bedtime. Ascorbic Acid 1,000 mg tablet Take 1 tablet by mouth once daily. omega 7-hcl-unv-fish oil 100-160-1,000 mg cap Take by mouth once daily. No current facility-administered medications for this visit. ALLERGIES: Patient has no known allergies. PERSONAL HISTORY: SOCIAL HISTORY Social History Tobacco Use Smoking status: Every Day Packs/day: .5 Types: Cigarettes Start date: 1967 Smokeless tobacco: Never Tobacco comments: 5 cigarettes/ day Vaping Use Vaping Use: Never used Substance Use Topics Alcohol use: Yes Comment: RARE Drug use: No FAMILY HISTORY: FAMILY HISTORY FAMILY HISTORY Problem Relation Age of Onset Alcohol/Drug Mother Colon Cancer Father Allergies Sister Breast Cancer Sister Heart Attack Sister REVIEW OF SYMPTOMS: The review of systems data was entered by the nurse and reviewed by wv Nursing Notes: Kianna Lindsey RN 02/08/2024 9:26 AM Signed REVIEW OF SYSTEMS: General: The patient denies fatigue, denies weight loss, denies weight gain, denies feeling hot, and denies feelings of cold. Eyes: The patient denies glaucoma, denies eye injury/surgery, wears glasses or contacts. Ear/Nose/Throat: The patient denies allergies, denies hayfever, denies ear infections, and denies bloody noses. Cardiovascular: The patient denies chest pain, denies heart disease, NOTES high blood pressure,denies cardiac stent, denies prior heart attack, denies irregular heart beat, NOTES high cholesterol, denies poor circulation, denies heart failure, other cardiac issues, denies claudication, denies cold feet, denies peripheral arterial stent. Respiratory: The patient denies tuberculosis, denies pneumonia, denies frequent cough, denies pulmonary embolism, denies shortness of breath, and denies coughing up blood. Gastrointestinal: The patient denies difficulty swallowing, denies acid reflux, denies ulcers, denies vomiting, denies jaundice/hepatitis, denies gallbladder problems, denies black or tarry stools, denies hemorrhoids, denies bleeding from rectum, NOTES diverticulitis, denies constipation, denies diarrhea, denies loss of stool control, and denies hernias. Kidney/Bladder: The patient NOTES kidney stones, denies urine infections, and denies bloody urine. Skin: The patient NOTES a history of skin cancer, denies bleeding/changing moles, and denies a history of skin rash. Neurologic: The patient denies a history of epilepsy/convulsions, denies headaches, denies head/spinal injuries, and denies stroke/TIA. Psychiatric: The patient denies psychiatric medications, denies depression, and denies voices, denies substance abuse. Endocrine: The patient denies thyroid disorders, denies diabetes, and denies hormonal problems. Hematologic: The patient denies a history of bruising, denies bleeding, and denies anemia, denies blood clots. Infections: The patient denies a history of measles and mumps, denies rheumatic fever, and denies sexually transmitted diseases. Musculoskeletal: The patient denies back pain/injury, denies back problems, denies sciatica, denies knee/foot trouble, denies arthritis, or denies gout. When was patient's last Mammogram screening? N/A Last Colonoscopy: 10/06/2014 Kianna Lindsey RN PHYSICAL EXAMINATION: General: The patient is 68 year old male, well nourished, well hydrated in no acute distress. The patient is oriented to time, place, and person. VITALS: Blood pressure 140/70, pulse 79, temperature 36.4 C (97.6 F), height 180.3 cm (5' 11"), weight 76.6 kg (168 lb 12.8 oz), SpO2 100%. Body mass index is 23.54 kg/m . HEENT: Normal cephalic, ataumatic, pupils are equally round, sclera are anicteric, mucous membranes are moist, oropharynx is clear. Neck has no masses, asymmetry or lymphadenopathy. Thyroid is unremarkable. Respiratory: Clear to auscultation and percussion. Normal respiratory excursion and pattern. Cardiac: Examination is regular rate and rhythm. Abdominal exam: Soft, nontender, with no palpable masses. No hepatosplenomegaly. No palpable hernias. Rectal exam: exam deferred Extremities: no clubbing, cyanosis or edema. No adenopathy. Other: LABORATORY VALUES: As Noted RADIOLOGIC STUDIES: As Noted Assessment IMPRESSION: Encounter for screening for malignant neoplasm of colon (primary encounter diagnosis) PLAN: I plan to perform lower endoscopy. We discussed the risks and benefits of the planned endoscopy. I have informed the patient that complications can occur including failure to complete the endoscopy and perforation. The patient had the opportunity to ask questions concerning the planned endoscopy. My staff has also explained the procedure to the patient in understandable terms and has given the patient printed material concerning the procedure. The patient freely consents to surgery. I plan to use Miralax bowel preperation for endoscopy Diagnoses: (Z12.11) Encounter for screening for malignant neoplasm of colon (primary encounter diagnosis) A letter was sent to Dr. Urban Kelly MD indicating the above finding for this patient. Return to Clinic: The patient is instructed to follow-up with me 1 week post operatively. Paul Borges III, MD UPDATED HISTORY AND PHYSICAL EXAMINATION SERVICE DATE: 03/10/2024 SERVICE TIME: 9:34 AM PHYSICAL EXAM MUST BE COMPLETED ON ADMISSION The History and Physical (completed in the past 30 days) has been reviewed and the patient has been examined. The contents accurately reflect the patient's condition with the following additions or revisions since the H&P was completed. Examination indicates no changes. This H&P can be found in the attached. SIGNATURE: Paul Borges III, MD PATIENT NAME: Arturo Santiago DATE: March 10, 2024 TIME: 9:34 AM documented in this encounter [facility] 02-08-2024 Telephone encount er Note 03/10/2024 COLON ASC [facility] 02-08-2024 Miscellaneous Notes Formattin g of this note might be different from the original. 03/10/2024 COLON ASC documented in this encounter [facility] 02-08-2024 Instructions Paul Borges MD - 02/08/2024 9:31 AM EDT Images from the original note were not included. Bowel Preparation Instructions for: Miralax-Gatorade Preparations IF YOU DO NOT FOLLOW THESE DIRECTIONS, YOUR COLONOSCOPY WILL BE CANCELLED. Abebe Instructions: Your bowel must be empty so that your doctor can clearly view your colon. Follow all of the instructions in this handout EXACTLY as they are written. Do NOT eat any solid food the ENTIRE day before your colonoscopy. Buy your bowel preparation at least 5 days before your colonoscopy. Four (4) Dulcolax laxative tablets containing 5mg of bisacodyl each (NOT Dulcolax stool softener) One (1) 8.3oz. bottle Miralax (238 grams) or generic equivalent 2 x 32oz. Bottles of Gatorade (NOT RED) Diabetic Patients: Use G2 (Gatorade 2) TRANSPORTATION on the Day of Your Exam A responsible adult MUST be present with you at Check In prior to your colonoscopy and REMAIN in the endoscopy area until you are discharged. You are NOT ALLOWED to drive, take a taxi or bus, or leave the Endoscopy Center ALONE. If you do not have a responsible helper driver (family member or friend) with you to take you home, your exam cannot be done with sedation and will be cancelled. Please bring a list of all of your current medications, including any [id number]-[id number] medications with you. Medications If you take insulin, diabetic medications or blood thinners such as Coumadin (warfarin), Plavix (clopidogrel), Ticlid (ticlopidine hydrochloride), Agrylin (anagrelide), Xarelto (Rivaroxaban), Pradaxa (Dabigatran), Eliquis (Apixaban), and Effient (Prasugrel). You MUST call the doctors who orders those medicines for instructions on altering the dosage before your colonoscopy. All other medications should be taken the day of the exam with a sip of water including ASPIRIN. Five (5) Days Before Your Colonoscopy Do NOT take medicines that stop diarrhea - such as Imodium, Kaopectate, or Pepto Bismol. Do NOT take fiber supplements - such as Metamucil, Citrucel, or Perdiem. Do NOT take products that contain iron - such as multi-vitamins (the label lists what is in the products). Three (3) Days Before Your Colonoscopy Do NOT eat high-fiber foods - such as popcorn, beans, seeds (flax, sunflower, quinoa), multigrain bread, nuts, salad/vegetables, or fresh and dried fruit. 1 Bowel Preparation Instructions for: Miralax-Gatorade Preparations One (1) Day Before Your Colonoscopy Only drink clear liquids the ENTIRE DAY before your colonoscopy. Do NOT eat any solid foods. Drink at least 8 ounces of clear liquids every hour after waking up. The clear liquids you can drink include: Clear Liquid (NO RED LIQUIDS) DO NOT DRINK Gatorade, Pedialyte or Powerade Clear broth or bouillon Coffee or tea (no milk or non-dairy creamer) Carbonated and non-carbonated soft drinks Emiliano-Aid or other fruit flavored drinks Strained fruit juices (no pulp) Jell-O, popsicles, hard candy Water Alcohol Milk or non-dairy creamers Noodles or vegetables in soup Juice with pulp Liquid you cannot see through Do not use tobacco/vaping products Mix 1/2 of Miralax bottle (119 grams) in each 32 ounces of Gatorade bottle until dissolved. Keep cool in the refrigerator. DO NOT ADD ICE. The bowel preparation solution will be consumed in two parts. Part 1 5:00 PM - Evening before your colonoscopy Take 4 Dulcolax tablets. 6 PM - Evening before your colonoscopy Drink 32 oz. of the mixed solution. Drink an 8 oz. glass of bowel preparation every 15 minutes for a total of 4 glasses. Fifteen (15) minutes later, drink an 8 oz. glass of of clear liquids every 15 minutes for a total of 2 glasses. You may continue to drink clear liquids till midnight. Part 2 On the day of your colonoscopy you may drink clear liquids up to (three) 3 hours prior to procedure. 4 1/2 hours before your colonoscopy Take another 32 oz. bottle of mixed solution. Drink an 8 oz. glass of bowel prep every 15 minutes for a total of 4 glasses. Fifteen (15) minutes later, drink an 8 oz. glass of clear liquids every 15 minutes for a total of 2 glasses. You may continue to drink clear liquids up to (three) 3 hours before your exam. 2 10/2019 documented in this encounter [facility] 02-08-2024 Note HNO ID: [id number] Author: PAUL BORGES MD Service: ? Author Type: Physician Type: Progress Notes Filed: 02/08/2024 09:36 Note Text: HISTORY AND PHYSICAL Arturo Santiago 1955 REFERRING PHYSICIAN: Urban Kelly MD CHIEF COMPLAINT: Consult (Colonoscopy consult) HPI: The patient is a 68 year old male referred for endoscopy. Arturo notes no history of colon complaints. The patient notes no history of upper GI complaints. Arturo has undergone prior endoscopy. 2013 The patient is being seen by me today at the request of Dr. Urban Kelly MD for my opinion and advice regarding Encounter for screening for malignant neoplasm of colon (primary encounter diagnosis). PAST MEDICAL HISTORY Diagnosis Date AAA (abdominal aortic aneurysm) (HCC) BPH with obstruction/lower urinary tract symptoms Calculus of kidney 10/25/2017 Elevated PSA Hyperlipidemia Hypertension Lung nodule Prostate cancer (HCC) Snoring PAST SURGICAL HISTORY Procedure Laterality Date CYSTOSCOPY,URETEROSCOPY,LITHOT RIPSY Right 12/2015 With stent CYSTOSCOPY,URETEROSCOPY,LITHOT RIPSY 06/2014 CYSTOSCOPY,URETEROSCOPY,LITHOT RIPSY 12/2018 EXC B9 LESION MRGN XCP SK TG T/A/L 0.6-1.0 CM N/A Back 1-2 years ago. FIDUCIAL MARKER PLACEMENT 01/28/2016 Into prostate HEMORRHOIDECTOMY HEMORRHOIDECTOMY 2002 IMRT BID RADT TX DELIVERY 04/2016 Prostate PAST SURGICAL HISTORY OF bursa removed from right elbow PROSTATE BIOPSY 12/23/2015 Positive for Jeramy 7 prostate cancer in 1 of 6 cores on left VASCULAR SURGERY PROCEDURE 06/01/2021 Fenestrated endovascular repair of abdominal aortic aneurysm. Current Outpatient Medications Medication Sig lisinopril (ZESTRIL, PRINIVIL) 20 mg tablet Take 20 mg by mouth once daily. amLODIPine (NORVASC) 5 mg tablet Take by mouth once daily. simvastatin (ZOCOR) 10 mg tablet Take 10 mg by mouth daily at bedtime. Ascorbic Acid 1,000 mg tablet Take 1 tablet by mouth once daily. omega 2-ucm-ahp-fish oil 100-160-1,000 mg cap Take by mouth once daily. No current facility-administered medications for this visit. ALLERGIES: Patient has no known allergies. PERSONAL HISTORY: Social History Tobacco Use Smoking status: Every Day Packs/day: .5 Types: Cigarettes Start date: 1969 Smokeless tobacco: Never Tobacco comments: 5 cigarettes/ day Vaping Use Vaping Use: Never used Substance Use Topics Alcohol use: Yes Comment: RARE Drug use: No FAMILY HISTORY: FAMILY HISTORY Problem Relation Age of Onset Alcohol/Drug Mother Colon Cancer Father Allergies Sister Breast Cancer Sister Heart Attack Sister REVIEW OF SYMPTOMS: The review of systems data was entered by the nurse and reviewed by wv Nursing Notes: Kianna Lindsey RN 02/08/2024 9:26 AM Signed REVIEW OF SYSTEMS: General: The patient denies fatigue, denies weight loss, denies weight gain, denies feeling hot, and denies feelings of cold. Eyes: The patient denies glaucoma, denies eye injury/surgery, wears glasses or contacts. Ear/Nose/Throat: The patient denies allergies, denies hayfever, denies ear infections, and denies bloody noses. Cardiovascular: The patient denies chest pain, denies heart disease, NOTES high blood pressure,denies cardiac stent, denies prior heart attack, denies irregular heart beat, NOTES high cholesterol, denies poor circulation, denies heart failure, other cardiac issues, denies claudication, denies cold feet, denies peripheral arterial stent. Respiratory: The patient denies tuberculosis, denies pneumonia, denies frequent cough, denies pulmonary embolism, denies shortness of breath, and denies coughing up blood. Gastrointestinal: The patient denies difficulty swallowing, denies acid reflux, denies ulcers, denies vomiting, denies jaundice/hepatitis, denies gallbladder problems, denies black or tarry stools, denies hemorrhoids, denies bleeding from rectum, NOTES diverticulitis, denies constipation, denies diarrhea, denies loss of stool control, and denies hernias. Kidney/Bladder: The patient NOTES kidney stones, denies urine infections, and denies bloody urine. Skin: The patient NOTES a history of skin cancer, denies bleeding/changing moles, and denies a history of skin rash. Neurologic: The patient denies a history of epilepsy/convulsions, denies headaches, denies head/spinal injuries, and denies stroke/TIA. Psychiatric: The patient denies psychiatric medications, denies depression, and denies voices, denies substance abuse. Endocrine: The patient denies thyroid disorders, denies diabetes, and denies hormonal problems. Hematologic: The patient denies a history of bruising, denies bleeding, and denies anemia, denies blood clots. Infections: The patient denies a history of measles and mumps, denies rheumatic fever, and denies sexually transmitted diseases. Musculoskeletal: The patient denies back pain/injury, denies back problems, denies sciati (more content not included)... [facility] 02-08-2024 History of Presen t illness Narrative HISTORY AND PHYSICAL Arturo Shaquille Dev 1955 REFERRING PHYSICIAN: Urban Kelly MD CHIEF COMPLAINT: Consult (Colonoscopy consult) HPI: The patient is a 68 year old male referred for endoscopy. Arturo notes no history of colon complaints. The patient notes no history of upper GI complaints. Arturo has undergone prior endoscopy. 2013 The patient is being seen by me today at the request of Dr. Urban Kelly MD for my opinion and advice regarding Encounter for screening for malignant neoplasm of colon (primary encounter diagnosis). PAST MEDICAL HISTORY Diagnosis Date AAA (abdominal aortic aneurysm) (HCC) BPH with obstruction/lower urinary tract symptoms Calculus of kidney 10/25/2017 Elevated PSA Hyperlipidemia Hypertension Lung nodule Prostate cancer (HCC) Snoring PAST SURGICAL HISTORY Procedure Laterality Date CYSTOSCOPY,URETEROSCOPY,LITHOT RIPSY Right 12/2015 With stent CYSTOSCOPY,URETEROSCOPY,LITHOT RIPSY 06/2014 CYSTOSCOPY,URETEROSCOPY,LITHOT RIPSY 12/2018 EXC B9 LESION MRGN XCP SK TG T/A/L 0.6-1.0 CM N/A Back 1-2 years ago. FIDUCIAL MARKER PLACEMENT 01/28/2016 Into prostate HEMORRHOIDECTOMY HEMORRHOIDECTOMY 2002 IMRT BID RADT TX DELIVERY 04/2016 Prostate PAST SURGICAL HISTORY OF bursa removed from right elbow PROSTATE BIOPSY 12/23/2015 Positive for Jeramy 7 prostate cancer in 1 of 6 cores on left VASCULAR SURGERY PROCEDURE 06/01/2021 Fenestrated endovascular repair of abdominal aortic aneurysm. Current Outpatient Medications Medication Sig lisinopril (ZESTRIL, PRINIVIL) 20 mg tablet Take 20 mg by mouth once daily. amLODIPine (NORVASC) 5 mg tablet Take by mouth once daily. simvastatin (ZOCOR) 10 mg tablet Take 10 mg by mouth daily at bedtime. Ascorbic Acid 1,000 mg tablet Take 1 tablet by mouth once daily. omega 0-hdd-csa-fish oil 100-160-1,000 mg cap Take by mouth once daily. No current facility-administered medications for this visit. ALLERGIES: Patient has no known allergies. PERSONAL HISTORY: Social History Tobacco Use Smoking status: Every Day Packs/day: .5 Types: Cigarettes Start date: 1969 Smokeless tobacco: Never Tobacco comments: 5 cigarettes/ day Vaping Use Vaping Use: Never used Substance Use Topics Alcohol use: Yes Comment: RARE Drug use: No FAMILY HISTORY: FAMILY HISTORY Problem Relation Age of Onset Alcohol/Drug Mother Colon Cancer Father Allergies Sister Breast Cancer Sister Heart Attack Sister REVIEW OF SYMPTOMS: The review of systems data was entered by the nurse and reviewed by wv Nursing Notes: Kianna Lindsey RN 02/08/2024 9:26 AM Signed REVIEW OF SYSTEMS: General: The patient denies fatigue, denies weight loss, denies weight gain, denies feeling hot, and denies feelings of cold. Eyes: The patient denies glaucoma, denies eye injury/surgery, wears glasses or contacts. Ear/Nose/Throat: The patient denies allergies, denies hayfever, denies ear infections, and denies bloody noses. Cardiovascular: The patient denies chest pain, denies heart disease, NOTES high blood pressure,denies cardiac stent, denies prior heart attack, denies irregular heart beat, NOTES high cholesterol, denies poor circulation, denies heart failure, other cardiac issues, denies claudication, denies cold feet, denies peripheral arterial stent. Respiratory: The patient denies tuberculosis, denies pneumonia, denies frequent cough, denies pulmonary embolism, denies shortness of breath, and denies coughing up blood. Gastrointestinal: The patient denies difficulty swallowing, denies acid reflux, denies ulcers, denies vomiting, denies jaundice/hepatitis, denies gallbladder problems, denies black or tarry stools, denies hemorrhoids, denies bleeding from rectum, NOTES diverticulitis, denies constipation, denies diarrhea, denies loss of stool control, and denies hernias. Kidney/Bladder: The patient NOTES kidney stones, denies urine infections, and denies bloody urine. Skin: The patient NOTES a history of skin cancer, denies bleeding/changing moles, and denies a history of skin rash. Neurologic: The patient denies a history of epilepsy/convulsions, denies headaches, denies head/spinal injuries, and denies stroke/TIA. Psychiatric: The patient denies psychiatric medications, denies depression, and denies voices, denies substance abuse. Endocrine: The patient denies thyroid disorders, denies diabetes, and denies hormonal problems. Hematologic: The patient denies a history of bruising, denies bleeding, and denies anemia, denies blood clots. Infections: The patient denies a history of measles and mumps, denies rheumatic fever, and denies sexually transmitted diseases. Musculoskeletal: The patient denies back pain/injury, denies back problems, denies sciatica, denies knee/foot trouble, denies arthritis, or denies gout. When was patient's last Mammogram screening? N/A Last Colonoscopy: 10/06/2014 Kianna Lindsey RN PHYSICAL EXAMINATION: General: The patient is 68 year old male, well nourished, well hydrated in no acute distress. The patient is oriented to time, place, and person. VITALS: Blood pressure 140/70, pulse 79, temperature 36.4 C (97.6 F), height 180.3 cm (5' 11"), weight 76.6 kg (168 lb 12.8 oz), SpO2 100%. Body mass index is 23.54 kg/m . HEENT: Normal cephalic, ataumatic, pupils are equally round, sclera are anicteric, mucous membranes are moist, oropharynx is clear. Neck has no masses, asymmetry or lymphadenopathy. Thyroid is unremarkable. Respiratory: Clear to auscultation and percussion. Normal respiratory excursion and pattern. Cardiac: Examination is regular rate and rhythm. Abdominal exam: Soft, nontender, with no palpable masses. No hepatosplenomegaly. No palpable hernias. Rectal exam: exam deferred Extremities: no clubbing, cyanosis or edema. No adenopathy. Other: LABORATORY VALUES: As Noted RADIOLOGIC STUDIES: As Noted Assessment IMPRESSION: Encounter for screening for malignant neoplasm of colon (primary encounter diagnosis) PLAN: I plan to perform lower endoscopy. We discussed the risks and benefits of the planned endoscopy. I have informed the patient that complications can occur including failure to complete the endoscopy and perforation. The patient had the opportunity to ask questions concerning the planned endoscopy. My staff has also explained the procedure to the patient in understandable terms and has given the patient printed material concerning the procedure. The patient freely consents to surgery. I plan to use Miralax bowel preperation for endoscopy Diagnoses: (Z12.11) Encounter for screening for malignant neoplasm of colon (primary encounter diagnosis) A letter was sent to Dr. Urban Kelly MD indicating the above finding for this patient. Return to Clinic: The patient is instructed to follow-up with me 1 week post operatively. Paul Borges III, MD documented in this encounter [facility] 02-08-2024 Nurse Note REVIEW OF SYSTEMS: General: The patient denies fatigue, denies weight loss, denies weight gain, denies feeling hot, and denies feelings of cold. Eyes: The patient denies glaucoma, denies eye injury/surgery, wears glasses or contacts. Ear/Nose/Throat: The patient denies allergies, denies hayfever, denies ear infections, and denies bloody noses. Cardiovascular: The patient denies chest pain, denies heart disease, NOTES high blood pressure,denies cardiac stent, denies prior heart attack, denies irregular heart beat, NOTES high cholesterol, denies poor circulation, denies heart failure, other cardiac issues, denies claudication, denies cold feet, denies peripheral arterial stent. Respiratory: The patient denies tuberculosis, denies pneumonia, denies frequent cough, denies pulmonary embolism, denies shortness of breath, and denies coughing up blood. Gastrointestinal: The patient denies difficulty swallowing, denies acid reflux, denies ulcers, denies vomiting, denies jaundice/hepatitis, denies gallbladder problems, denies black or tarry stools, denies hemorrhoids, denies bleeding from rectum, NOTES diverticulitis, denies constipation, denies diarrhea, denies loss of stool control, and denies hernias. Kidney/Bladder: The patient NOTES kidney stones, denies urine infections, and denies bloody urine. Skin: The patient NOTES a history of skin cancer, denies bleeding/changing moles, and denies a history of skin rash. Neurologic: The patient denies a history of epilepsy/convulsions, denies headaches, denies head/spinal injuries, and denies stroke/TIA. Psychiatric: The patient denies psychiatric medications, denies depression, and denies voices, denies substance abuse. Endocrine: The patient denies thyroid disorders, denies diabetes, and denies hormonal problems. Hematologic: The patient denies a history of bruising, denies bleeding, and denies anemia, denies blood clots. Infections: The patient denies a history of measles and mumps, denies rheumatic fever, and denies sexually transmitted diseases. Musculoskeletal: The patient denies back pain/injury, denies back problems, denies sciatica, denies knee/foot trouble, denies arthritis, or denies gout. When was patient's last Mammogram screening? N/A Last Colonoscopy: 10/06/2014 Kianna Lindsey RN documented in this encounter [facility] 10-25-2023 History of Presen t illness Narrative Arturo Santiago is a 68 year old male who presents to follow up for Aneurysm (Arturo is Dr. Weiss pt here to review 08/30/23 CTA) The pt had a fenestrated EVAR done 05/[address] Weiss for a justarenal AAA. He is following up with me in [place]. He is aware this is my last visit here and he can either see LLM in clinic in [place], or Dr Gina encinas here in [place]. He had a CTA A/P done 08/2023 that showed: Continued interval decreased size of the excluded infrarenal abdominal aortic aneurysm status post endovascular repair. No endoleak. now measures 4.5 x 4.3 cm (AP x transverse), previously 5.0 x 4.5 cm on 08/30/2022. He is still smoking and trying to quit. The patient has no new complaints. He denies abdominal pain. He denies new symptoms of PVD. He says he has some baseline numbness in his legs. The abdominal exam otherwise is unremarkable. The pts questions were answered. We again reviewed the need for yearly imaging to diagnose endoleak or graft migration. The pt understands that if they fail to follow up it could result in sac reperfusion or rupture of the aneurysm. We also reviewed the need to discuss the presence of an AAA with any children, especially males or those who have smoked. If applicable, we again discussed the importance of smoking cessation. HISTORIES: PAST MEDICAL HISTORY Diagnosis Date AAA (abdominal aortic aneurysm) (HCC) BPH with obstruction/lower urinary tract symptoms Calculus of kidney 10/25/2017 Elevated PSA Hyperlipidemia Lung nodule Prostate cancer (HCC) Snoring PAST SURGICAL HISTORY Procedure Laterality Date CYSTOSCOPY,URETEROSCOPY,LITHOT RIPSY Right 12/2015 With stent CYSTOSCOPY,URETEROSCOPY,LITHOT RIPSY 06/2014 CYSTOSCOPY,URETEROSCOPY,LITHOT RIPSY 12/2018 EXC B9 LESION MRGN XCP SK TG T/A/L 0.6-1.0 CM N/A Back 1-2 years ago. FIDUCIAL MARKER PLACEMENT 01/28/2016 Into prostate HEMORRHOIDECTOMY HEMORRHOIDECTOMY 2002 IMRT BID RADT TX DELIVERY 04/2016 Prostate PAST SURGICAL HISTORY OF bursa removed from right elbow PROSTATE BIOPSY 12/23/2015 Positive for Jeramy 7 prostate cancer in 1 of 6 cores on left VASCULAR SURGERY PROCEDURE 06/01/2021 Fenestrated endovascular repair of abdominal aortic aneurysm. Social History Tobacco Use Smoking status: Every Day Packs/day: .5 Types: Cigarettes Start date: 1969 Smokeless tobacco: Never Tobacco comments: 5 cigarettes/ day Vaping Use Vaping Use: Never used Substance Use Topics Alcohol use: Yes Comment: RARE Drug use: No ALLERGIES No Known Allergies MEDICATIONS: Current Outpatient Medications Medication Sig Dispense Refill lisinopril (ZESTRIL, PRINIVIL) 20 mg tablet Take 20 mg by mouth once daily. amLODIPine (NORVASC) 5 mg tablet Take by mouth once daily. simvastatin (ZOCOR) 10 mg tablet Take 10 mg by mouth daily at bedtime. Ascorbic Acid 1,000 mg tablet Take 1 tablet by mouth once daily. 0 omega 0-cdp-dtx-fish oil 100-160-1,000 mg cap Take by mouth once daily. 0 No current facility-administered medications for this visit. ALLERGIES No Known Allergies BP 126/70 Pulse 78 Resp 16 Ht 5' 11" (1.80m) Wt 164 lb (74.4kg) BMI 22.88 kg/(m^2). PHYSICAL EXAM: PHYSICAL EXAMINATION: General appearance: Well appearing, alert, in no acute distress, well-hydrated, well nourished. Skin: Skin color, texture, turgor normal, no suspicious rashes or lesions Head: Normocephalic, no abnormalities Lungs: Unlabored on room air Abdomen: Negative Neuro: Gait normal. Sensation grossly intact. ASSESSMENT: AAA, s/p fEVAR, no evidence of endoleak PLAN: Repeat CTA A/P in 1 year with f/u visit. Either with Dr Weiss in [place] or with Dr Ross in [place] Marisabel Gregg MD I spent 15 minutes in the visit, with more than 50% of the total [id number]-wl-[id number] time of the visit in counseling / coordination of care. documented in this encounter [facility] 08-30-2023 History of Presen t illness Narrative Radiology Service Progress Note DATE OF SERVICE: August 30, 2023 TIME: 2:54 PM PATIENT IDENTITY VERIFICATION COMPLETED USING TWO (2) STANDARD IDENTIFIERS: Name and Date of confirmed by patient verbally. FALL SCREENING: Has the patient had 2 falls in the last year or 1 fall with injury or currently using an Ambulatory Assistive Device (Walker, Cane, Wheelchair, Crutches, etc.)? No PATIENT GENDER DATA: Male PATIENT RELEVANT IMPLANT DATA REVIEWED: Yes ALLERGIES: Reviewed and unchanged CONTRAST ALLERGY: NO. EXAM: CT -CONTRAST INDUCED NEPHROPATHY RISK FACTORS: Patient age > 60 years CREATININE: Creatinine Date Value Ref Range Status 08/29/2023 1.27 (H) 0.73 - 1.22 mg/dL Final 08/29/2022 1.21 0.73 - 1.22 mg/dL Final 01/31/2022 1.35 (H) 0.73 - 1.22 mg/dL Final Estimated Glomerular Filtration Rate Date Value Ref Range Status 08/29/2023 61 >=60 mL/min/1.73m Final Comment: Estimated Glomerular Filtration Rate (eGFR) is calculated using the 2020 CKD-EPI creatinine equation. This equation utilizes serum creatinine, sex, and age as parameters. The creatinine assay has traceable calibration to isotope dilution-mass spectrometry. Refer to KDIGO guidelines for clinical interpretation. In patients with unstable renal function, e.g. those with acute kidney injury, the eGFR may not accurately reflect actual GFR. eGFR- Date Value Ref Range Status 07/11/2021 >60 Final P.O.C.T. RESULTS: POC done: Yes, See Lab Tab August 30, 2023 TREATMENT: N/A PERIPHERAL IV DATA: Ambulatory: A peripheral IV was started in the Right antecubital site with a Angio cath: 18 gauge. RADIOLOGY DEPARTMENT: CT; Exam(s) Completed: CTA Abdomen Pelvis SIGNATURE: RT Rosalina(R) PATIENT NAME: Arturo Santiago DATE: August 30, 2023 TIME: 2:54 PM documented in this encounter [facility] 07-27-2023 Miscellaneous Notes Formattin g of this note might be different from the original. Left VM to schedule OV. Establish w/ Dr. Gregg in [place] (Dr. 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 Message sent via ticketstreet. Tracey Santamaria APRN.MJ CTA looks good with continued decrease in aneurysm sac size around graft. Plan to follow-up with repeat CTA in 1 year @[facility] as discussed. Tracey Santamaria APRN.CNP documented in this encounter [facility] 08-22-2022 History of Presen t illness Narrative Arturo Santiago 65 year old male S/P Fenestrated endovascular repair of abdominal aortic aneurysm PROCEDURE: FEVAR by Dr. Weiss DATE: 06/06/21 SUBJECTIVE: Arturo Santiago returns to the office for post-op evaluation following his FEVAR. Pt reports that he is doing OK, however does have some ongoing concerns to discuss. Explains that he had unexplained numbness in both legs immediately following the surgery, but that it has gotten a lot better since then. Unfortunately, with the improvement/resolution of the numbness, there is constant pain/hypersensitivity/discomfo rt. It makes getting through the day difficult and impossible to sleep well at night. Also, pt continues to have decreased appetite and some fatigue. States that he is mindful about keeping active during his recovery, so he makes sure that he gets up and walks around every hour or more. PAST MEDICAL HISTORY Diagnosis Date AAA (abdominal aortic aneurysm) BPH with obstruction/lower urinary tract symptoms Calculus of kidney 10/25/2017 Elevated PSA Hyperlipidemia Lung nodule Prostate cancer (HCC) Snoring PAST SURGICAL HISTORY Procedure Laterality Date CYSTOSCOPY,URETEROSCOPY,LITHOT RIPSY Right 12/2015 With stent CYSTOSCOPY,URETEROSCOPY,LITHOT RIPSY 06/2014 CYSTOSCOPY,URETEROSCOPY,LITHOT RIPSY 12/2018 EXC B9 LESION MRGN XCP SK TG T/A/L 0.6-1.0 CM N/A Back 1-2 years ago. FIDUCIAL MARKER PLACEMENT 01/28/2016 Into prostate HEMORRHOIDECTOMY HEMORRHOIDECTOMY 2003 IMRT BID RADT TX DELIVERY 04/2016 Prostate PAST SURGICAL HISTORY OF bursa removed from right elbow PROSTATE BIOPSY 12/23/2015 Positive for Brush 7 prostate cancer in 1 of 6 cores on left VASCULAR SURGERY PROCEDURE 06/01/2021 Fenestrated endovascular repair of abdominal aortic aneurysm. Current Outpatient Medications on File Prior to Visit Medication Sig lisinopril (ZESTRIL, PRINIVIL) 20 mg tablet Take 20 mg by mouth once daily. amLODIPine (NORVASC) 5 mg tablet Take by mouth once daily. simvastatin (ZOCOR) 10 mg tablet Take 10 mg by mouth daily at bedtime. Ascorbic Acid 1,000 mg tablet Take 1 tablet by mouth once daily. omega 7-beg-avw-fish oil 100-160-1,000 mg cap Take by mouth once daily. No current facility-administered medications on file prior to visit. ALLERGIES No Known Allergies BP 136/70 (BP Site: Left Arm, BP Position: Sitting) Pulse 80 Resp 16 Ht 5' 11" (1.803 m) Wt 165 lb (74.8 kg) BMI 23.01 kg/m PHYSICAL EXAM: General Appearance: Well appearing, alert, in no acute distress, well-hydrated, well nourished. Skin: Skin color, texture, turgor normal, no suspicious rashes or lesions. Head: Normocephalic, no masses, lesions, tenderness or abnormalities. Eyes: Anicteric sclera. Extraocular movements are intact. Ears: External ears normal, hearing is adequate. Lungs: Breathing is easy and unlabored. Extremities: No deformities, edema, skin discoloration, clubbing or cyanosis. Neurologic: Gait normal. Sensation and strength grossly intact. TESTING: CTA a/p done 02/01/22 - Stable postsurgical changes of abdominal aortic aneurysm repair. Stable size of the excluded aneurysm with no evidence of endoleak. IMPRESSION: (I71.42) Juxtarenal abdominal aortic aneurysm (AAA) without rupture (primary encounter diagnosis), (Z98.890) History of AAA (abdominal aortic aneurysm) repair Comment: Last scan (6 month scan) is stable with no leaking, kinking, or migration of endograft noted; Due for 1 year scan Plan: CTA ABD/PEL WO/W IVCON, iv contrast (will be provided with radiology test), CREATININE BLD - Will schedule @[facility] [place] PLAN: Will call with results following 1 year scan. Pt may follow-up in [place] for convenience. Encouraged pt to call with any questions, problems, concerns, or changes. The patient is currently taking a statin: Yes The patient is currently taking aspirin: Yes I spent 30 minutes in the visit, with more than 50% of the total oezx-gy-qrgy time of the visit in counseling / coordination of care. Tracey Santamaria APRN.MJ documented in this encounter [facility] Evaluation note Diagnosis Onset Date Gallstone acute RUQ pain acute [facility] Work Phone: Evaluation noteNo assessment information available [facility] Work Phone: Evaluation note* Diagnosis Juxtarenal abdominal aortic aneurysm (AAA) without rupture- Primary History of AAA (abdominal aortic aneurysm) repair Other postprocedural status [facility] Diagnosis Onset Date Resolution Status Lung nodule, solitary acute History of tobacco abuse chr onic Prostate cancer chronic [facility] Work Phone: evaluation note* Diagnosis History of AAA (abdominal aortic aneurysm) repair- Primary Other postprocedural status 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) [facility] Diagnosis History of AAA (abdominal aortic aneurysm) repair Other postprocedural status 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) [facility] Diagnosis 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) [facility] Diagnosis Encounter for screening for malignant neoplasm of colon- Primary Special screening for malignant neoplasms, colon [facility] Diagnosis Special screening for malignant neoplasms, colon- Primary Encounter for screening for malignant neoplasm of colon Special screening for malignant neoplasms, colon [facility] Diagnosis History of AAA (abdominal aortic aneurysm) repair- Primary Other postprocedural status 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) [facility] Diagnosis History of AAA (abdominal aortic aneurysm) repair Other postprocedural status 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) [facility] Diagnosis 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)- Primary documented in this encounter [facility] for referral (narrative)* Outpatient Procedure (Routine) - Authorized Specialty Diagnoses / Procedures Referred By Jovana t Referred To Contact [facility] Diagnoses Encounter for screening for malignant neoplasm of colon Procedures COLONOSCOPY SCREENING COLONOSCOPY FLX DX W/COLLJ SPEC WHEN Paul Leal MD [address] [place] [address] [address] Referral ID Status Reason Start Date Expiration Date Visits Requested Visits Authorized [id number] Authorized Auto-Generat ed Referral 02/08/2024 02/07/2025 1 1 [facility] for referral (narrative)* Outpatient Procedure (Routine) - Closed Specialty Diagnoses / Procedures Referred By Jovana woodson Referred To Contact [facility] Diagnoses Encounter for screening for malignant neoplasm of colon Procedures COLONOSCOPY SCREENING COLONOSCOPY FLX DX W/COLLJ SPEC WHEN Paul Leal MD [address] [place] [address] [place] [id number] Referral ID Status Reason Start Date Expiration Date V isits Requested Visits Authorized [id number] Closed Auto-Generate d Referral 02/08/2024 02/07/2025 1 1 [facility] for referral (narrative)No reason for referral [facility]: Reason for visit Narrative* Outpatient Procedure (Routine) - Closed Specialty Diagnoses / Procedures Referred By Jovana woodson Referred To [facility] Diagnoses Encounter for screening for malignant neoplasm of colon Procedures COLONOSCOPY SCREENING COLONOSCOPY FLX DX W/COLLJ SPEC WHEN PFRMD Paul Borges MD [address] [place] [address] [facility] [address] [place] [address] Referral ID Status Reason Start Date Expiration Date V isits Requested Visits Authorized [id number] Closed Auto-Generate d Referral 02/08/2024 02/07/2025 1 1 [facility] Summary Purpose Family History No Family History Records Found Relationship Condition Age at Onset Recorded Date/T jyoti sister Malignant neoplasm of breast Unknown Cardiac disease Unknown Hypertension Unknown Coronary artery disease Unknown father Malignant neoplasm of colon Unknown Advance Directives No Advanced Directives Records Found Advance Directive Response Recorded Date/ Time Advance Directives No May 29 12:33am Living Will No May 26, 2021 2 :49pm Power of Middle School English Teacher No May 26, 2021 2:49pm Advance Directive Response Recorded Date/ Time Advance Directives No May 28 11:33pm Living Will No May 26, 2021 1 :49pm Power of Middle School English Teacher No May 26, 2021 1:49pm Advance Directive Response Recorded Date/ Time Advance Directives No May 29 12:33am Chief Complaint and Reason for Visit Chief Complaint RUQ PAIN GALLSTONES Reason for Visit Gallstone RUQ pain Chief Complaint ANKLE XRAY NICOTINE DEP Lung Nodule Reason for Visit Lung nodule, solitar y History of tobacco abuse Prostate cancer Chief Complaint ANKLE XRAY NICOTINE DEP Lung Nodule Solitary pulmonary nodule Solitary pulmonary nodule Reason for Visit Lung nodule, solitar y History of tobacco abuse Prostate cancer Chief Complaint NICOTINE DEP Lung Nodule Solitary pulmonary nodule Solitary pulmonary nodule Solitary pulmonary nodule Solitary pulmonary nodule LUNG NODULES Reason for Visit Lung nodule, solitar y History of tobacco abuse Prostate cancer Chief Complaint Admit Date LEFT SHOULDER PAIN December 12, 2024 9 :59am Pain January 16, 2025 6:27am Reason for Referral Specialty Diagnoses / Procedures Referred By Jovana t Referred To Contact CT IMAGING Diagnoses Juxtarenal abdominal aortic aneurysm (AAA) without rupture History of AAA (abdominal aortic aneurysm) repair Procedures CTA ABD/PEL WO/W IVCON CT ANGIO ABD&PLVIS CNTRST MTRL W/WO CNTRST Tracey Medina, DIRECTOR WORKFORCE MANAGEMENT.[employer] [address] [place] [address] Ct Imaging Referral ID Status Reason Start Date Expiration Date Visits Requested Visits Authorized [id number] Pending Review Auto-Generat ed Referral 08/22/2022 09/21/2023 1 1 Specialty Diagnoses / Procedures Referred By Contac t Referred To Contact CT IMAGING Diagnoses History of AAA (abdominal aortic aneurysm) repair 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) Procedures CTA ABD/PEL WO/W IVCON CT ANGIO ABD&PLVIS CNTRST MTRL W/WO CNTRST Traecy Medina, DIRECTOR WORKFORCE MANAGEMENT.[employer] [address] [place] [address] [place] [address] Referral ID Status Reason Start Date Expiration Date Visits Requested Visits Authorized [id number] Pending Review Auto-Generat ed Referral 07/25/2023 08/23/2024 1 1 Referral ID Status Reason Start Date Expiration Date V isits Requested Visits Authorized [id number] Closed Auto-Generate d Referral 07/25/2023 08/23/2024 1 1 Referral ID Status Reason Start Date Expiration Date Visits Requested Visits Authorized [id number] New Request Auto-Generat ed Referral 10/20/2024 11/19/2025 1 1 Referral ID Status Reason Start Date Expiration Date V isits Requested Visits Authorized [id number] Closed Auto-Generate d Referral 10/20/2024 11/19/2025 1 1 Additional Source Comments (unrecognized sect ion and content) No Status Records FoundNo Status Records FoundNo Status Records FoundNo Status Records Found INFORMATION SOURCE (unrecogn ized section and content) DATE CREATED AUTHOR 03/22/2019 [facility] DATE CREATED AUTHOR AUTHOR'S ORGANIZ ATION 12/01/2024 [facility] DATE CREATED AUTHOR AUTHOR'S ORGANIZ ATION 01/25/2025 [facility] DATE CREATED AUTHOR AUTHOR'S ORGANIZ ATION [facility]20[facility] Goals (unrecognized section and content) Goals may be documented in a n alternate sectionGoals may be documented in an alternate sectionGoals may be documented in an alternate sectionGoals may be documented in an alternate sectionGoals may be documented in an alternate sectionGoals may be documented in an alternate section Source Comments (unrecognize d section and content) In the event this informatio n is protected by the Federal Confidentiality of Alcohol and Drug Abuse Patient Records regulations: The Federal rules restrict any use of the information to criminally investigate or prosecute any alcohol or drug abuse patient.[facility] the event this information is protected by the Federal Confidentiality of Alcohol and Drug Abuse Patient Records regulations: The Federal rules restrict any use of the information to criminally investigate or prosecute any alcohol or drug abuse patient.[facility] Hospital[facility] the event this information is protected by the Federal Confidentiality of Alcohol and Drug Abuse Patient Records regulations: The Federal rules restrict any use of the information to criminally investigate or prosecute any alcohol or drug abuse patient.[facility] Hospital[facility] the event this information is protected by the Federal Confidentiality of Alcohol and Drug Abuse Patient Records regulations: The Federal rules restrict any use of the information to criminally investigate or prosecute any alcohol or drug abuse patient.[facility] HospitalIn the event this information is protected by the Federal Confidentiality of Alcohol and Drug Abuse Patient Records regulations: The Federal rules restrict any use of the information to criminally investigate or prosecute any alcohol or drug abuse patient.[facility] HospitalIn the event this information is protected by the Federal Confidentiality of Alcohol and Drug Abuse Patient Records regulations: The Federal rules restrict any use of the information to criminally investigate or prosecute any alcohol or drug abuse patient.[facility] HospitalIn the event this information is protected by the Federal Confidentiality of Alcohol and Drug Abuse Patient Records regulations: The Federal rules restrict any use of the information to criminally investigate or prosecute any alcohol or drug abuse patient.[facility] HospitalIn the event this information is protected by the Federal Confidentiality of Alcohol and Drug Abuse Patient Records regulations: The Federal rules restrict any use of the information to criminally investigate or prosecute any alcohol or drug abuse patient.[facility] HospitalIn the event this information is protected by the Federal Confidentiality of Alcohol and Drug Abuse Patient Records regulations: The Federal rules restrict any use of the information to criminally investigate or prosecute any alcohol or drug abuse patient.[facility] HospitalIn the event this information is protected by the Federal Confidentiality of Alcohol and Drug Abuse Patient Records regulations: The Federal rules restrict any use of the information to criminally investigate or prosecute any alcohol or drug abuse patient.[facility] HospitalIn the event this information is protected by the Federal Confidentiality of Alcohol and Drug Abuse Patient Records regulations: The Federal rules restrict any use of the information to criminally investigate or prosecute any alcohol or drug abuse patient.[facility] HospitalIn the event this information is protected by the Federal Confidentiality of Alcohol and Drug Abuse Patient Records regulations: The Federal rules restrict any use of the information to criminally investigate or prosecute any alcohol or drug abuse patient.[facility] HospitalIn the event this information is protected by the Federal Confidentiality of Alcohol and Drug Abuse Patient Records regulations: The Federal rules restrict any use of the information to criminally investigate or prosecute any alcohol or drug abuse patient.[facility] HospitalIn the event this information is protected by the Federal Confidentiality of Alcohol and Drug Abuse Patient Records regulations: The Federal rules restrict any use of the information to criminally investigate or prosecute any alcohol or drug abuse patient.[facility] Reason for Visit (unrecogniz ed section and content) Reason Comments Aneurysm Arturo is here to rev iew 02/01/22 CTA abd/pelvis Specialty Diagnoses / Procedures Referred By Contac t Referred To Contact VASCULAR SURGERY AG Diagnoses Consult, test and treat Procedures REFERRAL TO [facility]SEL[facility] OFFICE/OUTPATIENT ESTABLISHED MOD MDM 30-39 MIN Consult, test and treat Keith Weiss MD [address] [facility] [address] [address] [place] [address] [address] [place] [address] Referral ID Status Reason Start Date Expiration Date V isits Requested Visits Authorized [id number] Closed Financial Clearance Required - OON Payor 11/19/2021 11/18/2022 1 1 Reason Comments Results Reason Comments Appointment Appointment Reason Comments Radiology CT Specialty Diagnoses / Procedures Referred By Contac t Referred To Contact CT IMAGING Diagnoses History of AAA (abdominal aortic aneurysm) repair 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) Procedures CTA ABD/PEL WO/W IVCON CT ANGIO ABD&PLVIS CNTRST MTRL W/WO CNTRST Tracey Medina, DIRECTOR WORKFORCE MANAGEMENT.[employer] [address] [place] [address] [place] [address] Referral ID Status Reason Start Date Expiration Date V isits Requested Visits Authorized [id number] Closed Auto-Generate d Referral 07/25/2023 08/23/2024 1 1 Reason Comments Aneurysm Arturo is Dr. Hdz on pt here to review 08/30/23 CTA Specialty Diagnoses / [facility] / VASCULAR SURGERY AG Diagnoses New Pt/Annual f/up - Juxtarenal AAA without rupture- (CTA 08/30/23) Procedures NEW PATIENT Self Marisabel Gregg MD [address] [place] [address] Referral ID Status Reason Start Date Expiration Date Visits Re quested Visits Authorized [id number] Closed 10/25/2023 11/18/2023 1 1 Reason Comments Consult Colonoscopy consult Specialty Diagnoses / Procedures [facility] To [facility] General [facility] / GENERAL SURGERY Diagnoses colonoscopy consult, 10/06/14 colonoscopy-colonic mucosa with prominent lymphoid aggregate, repeat 10 years, 10/25/23 vascular surgery f/u: 06/08 fenestrated EVAR for juxtarenal AAA ra Procedures NEW DDI PATIENT Urban Kelly MD [address] [facility] [address] [place] [address] Paul Borges MD [address] [place] [phone] Referral ID Status Reason Start Date Expiration Date V isits Requested Visits Authorized [id number] Authorized 02/07/2024 11/18/2024 99 99 Reason Comments 03/10/2024 COLON ASC Referral ID Status Reason Start Date Expiration Date V isits Requested Visits Authorized [id number] Closed Auto-Generate d Referral 10/20/2024 11/19/2025 1 1 Reason Comments Patient Update Reason Comments Established Patient Specialty Diagnoses / Procedures Referred By Contac t Referred To Contact Peripheral Vascular / VASCULAR SURGERY Diagnoses Follow-up exam f/u ct Procedures OFFICE/OUTPATIENT ESTABLISHED HIGH MDM 40 MIN EST HVTI PATIENT Urban Kelly MD [address] [facility] [address] [place] [address] Phone: tel: fax: Sudha [employer]os, [address] [place] [address] Phone: tel: fax: Referral ID Status Reason Start Date Expiration Date Visits Re quested Visits Authorized [id number] Closed 01/09/2025 11/18/2025 1 1 Care Teams (unrecognized sec tion and content) Lan Specialist Relationship Specialty Start Date End Date Urban Kelly MD PCP - General Family Medicine 12/21/16 Tiburcio Warner (Hist) Urology 12/21/16 Lan Specialist Relationship Specialty Start Date End Date Urban Kelly MD PCP - General Family Medicine 12/21/16 Tiburcio Warner (Hist) Urology 12/21/16 Team Status: Active Member Role Status Dates Dr. Urban Kelly MD Family Provider Active Dr. Urban Kelly MD Primary Care Provider Active Team Status: Inactive Member Role Status Dates Dr. Urban Kelly MD Primary Care Provider, Referring Provider Active Dr. Christoph Manzo MD Attending Provider Active Team Status: Inactive Member Role Status Dates Dr. Urban Kelly MD Primary Care Provi oleg, Attending Provider, Referring Provider Active Team Status: Active Member Role Status Dates Dr. Urban Kelly MD Primary Care Provider Active Dr. Christoph Manzo MD Referring Provider, Other Provid er Active Dr. Cristopher Nicholas DO Attending Provider Active Team Status: Inactive Member Role Status Dates Dr. Urban Kelly MD Primary Care Provider Active Dr. Christoph Manzo MD Attending Provider, Referring Pr ovider Active Lan Specialist Relationship Specialty Start Date End Date Urban Kelly MD PCP - General Family Medicine 12/21/16 Tiburcio Warner (Hist) Urology 12/21/16 Lan Specialist Relationship Specialty Start Date End Date Urban Kelly MD PCP - General Family Medicine 12/21/16 Tiburcio Warner (Hist) Urology 12/21/16 Lan Specialist Relationship Specialty Start Date End Date Urban Kelly MD PCP - General Family Medicine 12/21/16 Tiburcio Warner (Hist) Urology 12/21/16 Team Status: Inactive Member Role Status Dates Dr. Christoph Manzo MD Attending Provider, Referring Pr ovider Active Dr. Urban Kelly MD Primary Care Provider Active Lan Specialist Relationship Specialty Start Date End Date Urban Kelly MD PCP - General Family Medicine 12/21/16 Tiburcio Warner (Hist) Urology 12/21/16 Lan Specialist Relationship Specialty Start Date End Date Urban Kelly MD PCP - General Family Medicine 12/21/16 Tiburcio Warner (Hist) Urology 12/21/16 Lan Specialist Relationship Specialty Start Date End Date Urban Kelly MD PCP - General Family Medicine 12/21/16 Tiburcio Warner (Hist) Urology 12/21/16 Lan Specialist Relationship Specialty Start Date End Date Urban Kelly MD PCP - General Family Medicine 12/21/16 Tiburcio Warner (Hist) Urology 12/21/16 Lan Specialist Relationship Specialty Start Date End Date Urban Kelly MD PCP - General Family Medicine 12/21/16 Tiburcio Warner (Hist)MD Urology 12/21/16 Team Status: Active Member Role Status Dates Dr. Urban Kelly MD Primary Care Provider Active Team Status: Inactive Member Role Status Dates Dr. Urban Kelly MD Primary Care Provider Active Start: December 12, 2024 End: December 12, 2024 Dr. Urban Kelly MD Attending Provider Active Start: December 12, 2024 End: December 12, 2024 Dr. Urban Kelly MD Referring Provider Active Start: December 12, 2024 End: December 12, 2024 Team Status: Inactive Member Role Status Dates Dr. Urban Kelly MD Primary Care Provider Active Start: January 16, 2025 End: January 16, 2025 Dr. Urban Kelly MD Attending Provider Active Start: January 16, 2025 End: January 16, 2025 Dr. Urban Kelly MD Referring Provider Active Start: January 16, 2025 End: January 16, 2025 FOR RECORDS PERTAINING TO PATIENTS WHO ARE OR HAVE BEEN ENROLLED IN A CHEMICAL DEPENDENCY/SUBSTANCEABUSE PROGRAM, SOME INFORMATION MAY BE OMITTED. This clinical summary was aggregated from multiple sources. Caution should be exercised in using it in the provision of clinical care. This summary normalizes information from multiple sources, and as a consequence, information in this document may materially change the coding, format and clinical context of patient data. In addition, data may be omitted in some cases. CLINICAL DECISIONS SHOULD BE BASED ON THE PRIMARY CLINICAL RECORDS. [facility] [employer] provides no warranty or guarantee of the accuracy or completeness of information in this document.
== END | disposition home or self-care (01) ==
LOC: CT 18:18
PROVIDERS: PCP Family Medicine
DX: F17.210 Nicotine dependence, cigarettes, uncomplicated (principal)
CPT/HCPCS: 71271